=== PATIENT | female | born 1960 | race American Indian/Alaskan Native ===

== ENCOUNTER 2018-09-05 10:53 | Observation (INO) | payer OTHER ==
[2018-09-05] MEDS: Albuterol-Ipratrop 3 mg / 0.5 (3 ml) UD IH SCH ×2 (12:29→13:33)
--- NOTE | 2018-09-05 12:36 | RAD ---
Date of service: 09/05/2018 HISTORY: sob COMPARISON: No prior. FINDINGS: LUNGS: No active pulmonary disease. PLEURA: No significant pleural effusion identified, no pneumothorax apparent. CARDIOVASCULAR: No aortic atherosclerotic calcification present. Normal cardiac size. No pulmonary vascular congestion. OSSEOUS STRUCTURES: No significant abnormalities. VISUALIZED UPPER ABDOMEN: Normal. OTHER FINDINGS: None. IMPRESSION: No active disease.
[2018-09-05 12:43] LABS: BASO # 0.02 K/mm3 (0.0-2.0); BASO % 0.4 % (0.0-3.0); EOS % 0.7 % (1.5-5.0); HEMOGLOBIN 12.8 g/dL (12.0-16.0); LYMPH # 1.8 (1.2-3.4); LYMPH % 39.6 % (22.0-35.0); MEAN CELL VOLUME 95.6 fl (80.0-105.0); MEAN CORPUSCULAR HEMOGLOBIN 31.5 pg (25.0-35.0); MEAN PLATELET VOLUME 10.5 fl (7.0-11.0); MONO # 0.4 (0.1-0.6); MONO % 9.3 % (1.0-6.0); RBC 4.06 10^6/uL (3.5-6.1); RED CELL DISTRIBUTION WIDTH 14.3 % (11.5-14.5); WHITE BLOOD COUNT 4.5 10^3/uL (4.5-11.0)
[2018-09-05 12:46] LABS: URINE BILIRUBIN NEGATIVE (NEGATIVE); URINE BLOOD MODERATE (NEGATIVE); URINE GLUCOSE (UA) NEGATIVE (NEGATIVE); URINE LEUKOCYTE ESTERASE NEGATIVE Leu/uL (NEGATIVE); URINE PROTEIN TRACE mg/dL (<30 mg/dL); URINE UROBILINOGEN 0.2 E.U./dL (<1 E.U./dL)
[2018-09-05 12:51] LABS: INR 1.06; PARTIAL THROMBOPLASTIN TIME 37.8 Seconds (26.9-38.3)
[2018-09-05 12:52] LABS: URINE APPEARANCE CLEAR (CLEAR); URINE COLOR YELLOW (YELLOW)
[2018-09-05 13:00] LABS: URINE RBC 20 - 25 /hpf (0-2); URINE WBC 0 - 2 /hpf (0-6)
[2018-09-05 13:01] LABS: URINE BACTERIA MOD /hpf
[2018-09-05 13:03] LABS: INFLUENZA A B NEGATIVE FOR FLU A/B (NEGATIVE)
--- NOTE | 2018-09-05 13:04 | ED PDOC ---
Arrival/HPI - General Chief Complaint: Abdominal Pain Time Seen by Provider: 09/05/18 11:02 Historian: Patient (Poor historian ) - History of Present Illness Narrative History of Present Illness (Text): 09/05/18 11:02 Libertad Floyd is a 58 year old female, with a past medical history of HIV, HTN, and asthma, presents to the emergency department with complaints of worsening shortness of breath, cough, and abdominal pain. Patient informs she is taking bactram prophylaxis. Patient states she does not know her CD4 count. Patient was previously seen at another institution. Patient states that she had a CT and Ultrasound yesterday. Patient denies fever, chills, nausea, vomiting, diarrhea, back pain, neck pain, headache, dizziness, or any other complaint. Time/Duration: 24 hours Symptom Onset: Gradual Symptom Course: Worsening Activities at Onset: Light Context: Home Past Medical History - Provider Review Nursing Documentation Reviewed: Yes - Infectious Disease Hx of Infectious Diseases: None - Reproductive Menopause: Yes - Cardiac Hx Cardiac Disorders: Yes Hx Hypertension: Yes - Pulmonary Hx Respiratory Disorders: No - Neurological Hx Neurological Disorder: No - Integumentary Hx Dermatological Disorder: No - Psychiatric Hx Substance Use: No - Anesthesia Hx Anesthesia Reactions: No Family/Social History - Physician Review Nursing Documentation Reviewed: Yes Family/Social History: No Known Family HX Smoking Status: Current Some Days Smoker Hx Alcohol Use: Yes Frequency of alcohol use: Socially Hx Substance Use: No Allergies/Home Meds Allergies/Adverse Reactions: Allergies fruits Allergy (Uncoded 09/05/18 11:05) RASH Home Medications: Home Meds Medication Instructions Recorded Confirmed Albuterol HFA [Ventolin HFA 90 0.09 mg IH QID 09/05/18 09/05/18 mcg/actuation (8 g)] Elviteg/Jacqueline/Emtric/Tenofo Dis 1 tab PO DAILY 09/05/18 09/05/18 [Stribild] Sulfamethoxazole/Trimethoprim 1 tab PO 09/05/18 [Bactrim DS 800 mg-160 mg] amLODIPine [Norvasc] 10 mg PO DAILY 09/05/18 09/05/18 Review of Systems - Physician Review All systems were reviewed & negative as marked: Yes - Review of Systems Constitutional: absent: Fevers, Night Sweats Respiratory: SOB, Cough Cardiovascular: absent: Chest Pain Gastrointestinal: Abdominal Pain. absent: Diarrhea, Nausea, Vomiting Musculoskeletal: absent: Back Pain, Neck Pain Neurological: absent: Headache, Dizziness Physical Exam Vital Signs Reviewed: Yes Vital Signs Temp Pulse Resp BP Pulse Ox 09/05/18 10:59 97.6 F 70 18 163/108 H 98 Temperature: Afebrile Blood Pressure: Hypertensive Pulse: Regular Respiratory Rate: Normal Appearance: Positive for: Well-Appearing, Non-Toxic, Comfortable Pain Distress: None Mental Status: Positive for: Alert and Oriented X 3 - Systems Exam Head: Present: Atraumatic, Normocephalic Pupils: Present: PERRL Extroacular Muscles: Present: EOMI Conjunctiva: Present: Normal Mouth: Present: Moist Mucous Membranes Neck: Present: Normal Range of Motion Respiratory/Chest: Present: Wheezes (scattered), Decreased Breath Sounds (bilaterally). No: Clear to Auscultation, Good Air Exchange, Respiratory Distress, Accessory Muscle Use Cardiovascular: Present: Regular Rate and Rhythm, Normal S1, S2. No: Murmurs Abdomen: Present: Tenderness. No: Distention, Peritoneal Signs Back: Present: Normal Inspection Upper Extremity: Present: Normal Inspection. No: Cyanosis, Edema Lower Extremity: Present: Normal Inspection. No: Edema Neurological: Present: GCS=15, CN II-XII Intact, Speech Normal Skin: Present: Warm, Dry, Normal Color. No: Rashes Psychiatric: Present: Alert, Oriented x 3, Normal Insight, Normal Concentration Medical Decision Making ED Course and Treatment: 09/05/18 11:02 Impression: Patient is a 58 year old female who presents to the emergency department with worsening shortness of breath, cough, and abdominal pain. Plan: -- EKG -- Labs -- Chest X-Ray -- Influenza A/B -- Rapid Strep -- Urinalysis -- Duoneb -- Solu-Medrol -- Reassess and Disposition Progress: 09/05/18 16:[address] [place] [facility] [place] labs neg. pt failure of outpt will admit. accepted hosptialist. - Lab Interpretations Lab Results: PT 12.0 SECONDS (9.4-12.5) 09/05/18 12:15 INR 1.06 09/05/18 12:15 APTT 37.8 Seconds (26.9-38.3) 09/05/18 12:15 Urine Color Yellow (YELLOW) 09/05/18 12:15 Urine Appearance Clear (CLEAR) 09/05/18 12:15 Urine pH 6.0 (4.7-8.0) 09/05/18 12:15 Ur Specific [place] 1.020 (1.005-1.035) 09/05/18 12:15 Urine Protein Trace mg/dL (<30 mg/dL) H 09/05/18 12:15 Urine Glucose (UA) Negative mg/dL (NEGATIVE) 09/05/18 12:15 Urine Ketones Negative mg/dL (NEGATIVE) 09/05/18 12:15 Urine Blood Moderate (NEGATIVE) H 09/05/18 12:15 Urine Nitrate Negative (NEGATIVE) 09/05/18 12:15 Urine Bilirubin Negative (NEGATIVE) 09/05/18 12:15 Urine Urobilinogen 0.2 E.U./dL (<1 E.U./dL) 09/05/18 12:15 Ur Leukocyte Esterase Negative Chandana/uL (NEGATIVE) 09/05/18 12:15 - RAD Interpretation Radiology Orders: 09/05/18 11:58 CHEST PORTABLE [RAD] Stat - Medication Orders Current Medication Orders: Discontinued Medications Albuterol/Ipratropium (Duoneb 3 Mg/0.5 Mg (3 Ml) Ud) 3 ml IH Q15M JESSICA Stop: 09/05/18 12:31 Last Admin: 09/05/18 12:29 Dose: 3 ml Methylprednisolone (Solu-Medrol) 125 mg IVP STAT STA Stop: 09/05/18 12:00 Last Admin: 09/05/18 12:29 Dose: 125 mg IVP Administration Document 09/05/18 12:29 EQ (Rec: 09/05/18 12:29 EQ [id number]) Charges for Administration # of IVP Administrations 1 - Scribe Statement The provider has reviewed the documentation as recorded by the Scribe Arnie Yoder All medical record entries made by the Scribe were at my direction and personally dictated by me. I have reviewed the chart and agree that the record accurately reflects my personal performance of the history, physical exam, medical decision making, and the department course for this patient. I have also personally directed, reviewed, and agree with the discharge instructions and disposition. Disposition/Present on Arrival - Present on Arrival Any Indicators Present on Arrival: No History of DVT/PE: No History of Uncontrolled Diabetes: No Urinary Catheter: No History of Decub. Ulcer: No History Surgical Site Infection Following: None - Disposition Have Diagnosis and Disposition been Completed?: Yes Diagnosis: Asthma Disposition Time: 15:00 Condition: FAIR
[2018-09-05 13:10] LABS: ALB/GLOB RATIO 0.6 (1.1-1.8); ALBUMIN 3.8 g/dL (3.0-4.8)
[2018-09-05 13:22] LABS: TROPONIN I 0.01 ng/mL
--- NOTE | 2018-09-05 14:55 | CP.PCM.HP ---
<Ross Guo - Last Filed: 09/05/18 15:24> History of Present Illness - History of Present Illness History of Present Illness: PGY1 Medicine History and Physical Exam Note for Dr. Molina Patient is a 58-year-old F with PMH significant for HIV + (on elvitegravir/cobicistat/emtricitabine/tenofov - genoya oral tab), recent "walking" pneumonia, and Asthma who [place] [facility] [place] pain (R) for the past several days. Patient also admits to persistent cold-like symptoms which she describes as sore throat, cough, chills, and runny nose. Of note, Patient states she was recently seen at [facility] in June 2018 for cold- like symptoms. Also during her admission, the patient was found to have SAUL (Cr=5), per Patient. Patient states she got a little better but then returned to [facility] about 3 days ago because her cold symptoms persisted and this time she began experiencing right-sided rib pain, which she states is because of persistent cough. Patient was discharged with medrol pack, which the Patient states she did not complete. Patient otherwise denies chest pain, shortness of breath, headache, abdominal pain, dysuria, fever, nausea, vomiting and/or diarrhea. Of note, the Patient denies taking her Genoya oral tab medication for the last 3 days. PMH: Asthma, HIV + Surgery: Umbilical hernia repair - as a child Allergies: Fruits Meds: - Genoya oral tab 1 tab daily - Albuterol 2 puffs 4 times daily as needed for wheezing - SMZ-TMP 800-160mg PO [id number] - Amlodipine 10mg PO daily (Patient reports she did not take today) Social Hx: smokes 3-5 cigarettes per day, drinks coors light beer on weekends, denies recreational drugs PMD: [address] [facility]: [facility] in Present on Admission - Present on Admission Any Indicators Present on Admission: No History of DVT/PE: No History of Uncontrolled Diabetes: No Urinary Catheter: No Decubitus Ulcer Present: No Review of Systems - Review of Systems All systems: reviewed and no additional remarkable complaints except Review of Systems: as per HPI - Constitutional Constitutional: As Per HPI Past Patient History - Infectious Disease Hx of Infectious Diseases: None - Past Social History Smoking Status: Current Some Days Smoker - CARDIAC Hx Cardiac Disorders: Yes Hx Hypertension: Yes - PULMONARY Hx Respiratory Disorders: No - NEUROLOGICAL Hx Neurological Disorder: No - HEMATOLOGICAL/ONCOLOGICAL Hx Human Immunodeficiency Virus (HIV): Yes (2000) - INTEGUMENTARY Hx Dermatological Problems: No - PSYCHIATRIC Hx Substance Use: No - ANESTHESIA Hx Anesthesia Reactions: No Meds Allergies/Adverse Reactions: Allergies Allergy/AdvReac Type Severity Reaction Status Date / Time fruits Allergy RASH Uncoded 09/05/18 11:05 Physical Exam - Constitutional Appears: Agitated - Head Exam Head Exam: ATRAUMATIC, NORMAL INSPECTION, NORMOCEPHALIC - Eye Exam Eye Exam: EOMI, Normal appearance, PERRL Pupil Exam: NORMAL ACCOMODATION, PERRL - ENT Exam ENT Exam: Normal Exam Additional comments: on throat exam: + erythema no edema no exudate - Neck Exam Neck exam: Positive for: Normal Inspection. Negative for: Lymphadenopathy, Meningismus, Tenderness - Respiratory Exam Respiratory Exam: Clear to Auscultation Bilateral, NORMAL BREATHING PATTERN. absent: Chest Wall Tenderness, Decreased Breath Sounds, Rales, Rhonchi, Wheezes, Respiratory Distress - Cardiovascular Exam Cardiovascular Exam: REGULAR RHYTHM, +S1, +S2. absent: Bradycardia, Tachycardia Additional comments: ribs 5-7 are tender to palpation on the right no rash noted no change in skin texture/color noted - GI/Abdominal Exam GI & Abdominal Exam: Normal Bowel Sounds, Soft. absent: Tenderness - Extremities Exam Extremities exam: Positive for: normal inspection, pedal pulses present. Negative for: tenderness - Back Exam Back exam: FULL ROM, NORMAL INSPECTION. absent: rash noted - Neurological Exam Neurological exam: Alert, CN II-XII Intact, Oriented x3 - Psychiatric Exam Psychiatric exam: Agitated, Normal Affect, Normal Mood - Skin Skin Exam: Dry, Intact, Normal Color, Warm Results - Vital Signs Recent Vital Signs: Last Vital Signs Temp 97.6 F 09/05/18 10:59 Pulse 66 09/05/18 14:45 Resp 18 09/05/18 14:45 BP 199/99 H 09/05/18 14:45 Pulse Ox 95 09/05/18 14:45 - Labs Result Diagrams: 09/05/18 12:15 09/05/18 12:50 Labs: Laboratory Results - last 24 hr 09/05/18 09/05/18 09/05/18 12:15 12:15 12:15 WBC 4.5 RBC 4.06 Hgb 12.8 Hct 38.8 MCV 95.6 MCH 31.5 MCHC 33.0 RDW 14.3 Plt Count 158 MPV 10.5 Neut % (Auto) 50.0 Lymph % (Auto) 39.6 H [place] % (Auto) 9.3 H Eos % (Auto) 0.7 L Baso % (Auto) 0.4 Lymph # (Auto) 1.8 [place] # (Auto) 0.4 Eos # (Auto) 0.0 Baso # (Auto) 0.02 Absolute Neuts (auto) 2.25 PT 12.0 INR 1.06 APTT 37.8 Sodium Potassium Chloride Carbon Dioxide Anion Gap BUN Creatinine Est GFR ( Amer) Est GFR (Non-Af Amer) Random Glucose Calcium Magnesium Total Bilirubin AST ALT Alkaline Phosphatase Lactate Dehydrogenase Total Creatine Kinase Troponin I NT-Pro-B Natriuret Pep Total Protein Albumin Globulin Albumin/Globulin Ratio Lipase Urine Color Yellow Urine Appearance Clear Urine pH 6.0 Ur Specific [place] 1.020 Urine Protein Trace H Urine Glucose (UA) Negative Urine Ketones Negative Urine Blood Moderate H Urine Nitrate Negative Urine Bilirubin Negative Urine Urobilinogen 0.2 Ur Leukocyte Esterase Negative Urine RBC 20 - 25 H Urine WBC 0 - 2 Ur Epithelial Cells 3 - 4 Urine Bacteria Mod Influenza Typ A,B (EIA) Grp A Beta Strep Ag 09/05/18 09/05/18 12:15 12:50 WBC RBC Hgb Hct MCV MCH MCHC RDW Plt Count MPV Neut % (Auto) Lymph % (Auto) [place] % (Auto) Eos % (Auto) Baso % (Auto) Lymph # (Auto) [place] # (Auto) Eos # (Auto) Baso # (Auto) Absolute Neuts (auto) PT INR APTT Sodium 138 Potassium 4.1 Chloride 107 Carbon Dioxide 27 Anion Gap 8 L BUN 16 Creatinine 1.2 Est GFR ( Amer) 56 Est GFR (Non-Af Amer) 46 Random Glucose 101 Calcium 9.0 Magnesium 1.9 Total Bilirubin 0.4 AST 49 H ALT 14 Alkaline Phosphatase 79 Lactate Dehydrogenase 588 Total Creatine Kinase 112 Troponin I 0.01 NT-Pro-B Natriuret Pep 460 H Total Protein 9.9 H Albumin 3.8 Globulin 6.1 Albumin/Globulin Ratio 0.6 L Lipase 218 Urine Color Urine Appearance Urine pH Ur Specific [place] Urine Protein Urine Glucose (UA) Urine Ketones Urine Blood Urine Nitrate Urine Bilirubin Urine Urobilinogen Ur Leukocyte Esterase Urine RBC Urine WBC Ur Epithelial Cells Urine Bacteria Influenza Typ A,B (EIA) Negative for flu a/b Grp A Beta Strep Ag Negative Assessment & Plan - Assessment and Plan (Free Text) Assessment: Patient is a 58-year-old F with PMH significant for HIV + (on elvitegravir/ cobicistat/emtricitabine/tenofov - genoya oral tab), recent "walking" pneumonia, and Asthma who [place] [facility] [place] for rib pain (R) for the past several days. Patient subsequently admitted for rule-out rib fracture Rib Pain (Right-sided ribs 5-7) likely secondary to cough likely secondary to viral bronchitis - Duonebs Q2H PRN for wheezing - Acetaminophen 650mg PO Q6H PRN for moderate pain - Toradol 15mg IVP Q6 PRN for severe pain - Solumedrol 125mg IVP given once - Zofran 4mg PO Q8H PRN for nausea - X-ray Rib series - F/U throat cultures - F/U Blood cultures - AM labs: CMP, CBC, Phos, Mag - Monitor on tele ACS rule-out - + Risk Factors: Female, > 55 years old, smokes, HTN, - Troponins Q6H x3 - EKG: NSR with LVH (read by me) - Repeat EKG - Monitor tele History of HTN - Restart home meds: Norvasc 10mg PO daily - Monitor BP History of Asthma - Duonebs Q2H PRN - Monitor History of HIV + - Unknown CD4 count - Prescribed genoya 1 tab PO (denies taking for 3 days) - Prescribed SMZ/TMP - Continue HIV medications - Encourage follow-up with PMD PPx: - GI: pepcid 40mg PO HS - DVT: SCD Patient seen and case discussed in detail with Dr. Tracy Guo PGY1 <Rafi Molina - Last Filed: 09/05/18 16:52> Results - Vital Signs Recent Vital Signs: Last Vital Signs Temp 97.7 F 09/05/18 14:59 Pulse 76 09/05/18 15:30 Resp 18 09/05/18 15:30 BP 170/89 H 09/05/18 15:33 Pulse Ox 93 L 09/05/18 15:30 - Labs Result Diagrams: 09/05/18 12:15 09/05/18 12:50 Labs: Laboratory Results - last 24 hr 09/05/18 09/05/18 09/05/18 12:15 12:15 12:15 WBC 4.5 RBC 4.06 Hgb 12.8 Hct 38.8 MCV 95.6 MCH 31.5 MCHC 33.0 RDW 14.3 Plt Count 158 MPV 10.5 Neut % (Auto) 50.0 Lymph % (Auto) 39.6 H [place] % (Auto) 9.3 H Eos % (Auto) 0.7 L Baso % (Auto) 0.4 Lymph # (Auto) 1.8 [place] # (Auto) 0.4 Eos # (Auto) 0.0 Baso # (Auto) 0.02 Absolute Neuts (auto) 2.25 PT 12.0 INR 1.06 APTT 37.8 Sodium Potassium Chloride Carbon Dioxide Anion Gap BUN Creatinine Est GFR ( Amer) Est GFR (Non-Af Amer) Random Glucose Calcium Magnesium Total Bilirubin AST ALT Alkaline Phosphatase Lactate Dehydrogenase Total Creatine Kinase Troponin I NT-Pro-B Natriuret Pep Total Protein Albumin Globulin Albumin/Globulin Ratio Lipase Urine Color Yellow Urine Appearance Clear Urine pH 6.0 Ur Specific [place] 1.020 Urine Protein Trace H Urine Glucose (UA) Negative Urine Ketones Negative Urine Blood Moderate H Urine Nitrate Negative Urine Bilirubin Negative Urine Urobilinogen 0.2 Ur Leukocyte Esterase Negative Urine RBC 20 - 25 H Urine WBC 0 - 2 Ur Epithelial Cells 3 - 4 Urine Bacteria Mod Urine Opiates Screen Urine Methadone Screen Ur Barbiturates Screen Ur Phencyclidine Scrn Ur Amphetamines Screen U Benzodiazepines Scrn U Oth Cocaine Metabols U Cannabinoids Screen Influenza Typ A,B (EIA) Grp A Beta Strep Ag 09/05/18 09/05/18 09/05/18 12:15 12:50 16:06 WBC RBC Hgb Hct MCV MCH MCHC RDW Plt Count MPV Neut % (Auto) Lymph % (Auto) [place] % (Auto) Eos % (Auto) Baso % (Auto) Lymph # (Auto) [place] # (Auto) Eos # (Auto) Baso # (Auto) Absolute Neuts (auto) PT INR APTT Sodium 138 Potassium 4.1 Chloride 107 Carbon Dioxide 27 Anion Gap 8 L BUN 16 Creatinine 1.2 Est GFR ( Amer) 56 Est GFR (Non-Af Amer) 46 Random Glucose 101 Calcium 9.0 Magnesium 1.9 Total Bilirubin 0.4 AST 49 H ALT 14 Alkaline Phosphatase 79 Lactate Dehydrogenase 588 Total Creatine Kinase 112 Troponin I 0.01 NT-Pro-B Natriuret Pep 460 H Total Protein 9.9 H Albumin 3.8 Globulin 6.1 Albumin/Globulin Ratio 0.6 L Lipase 218 Urine Color Urine Appearance Urine pH Ur Specific [place] Urine Protein Urine Glucose (UA) Urine Ketones Urine Blood Urine Nitrate Urine Bilirubin Urine Urobilinogen Ur Leukocyte Esterase Urine RBC Urine WBC Ur Epithelial Cells Urine Bacteria Urine Opiates Screen Negative Urine Methadone Screen Negative Ur Barbiturates Screen Negative Ur Phencyclidine Scrn Negative Ur Amphetamines Screen Negative U Benzodiazepines Scrn Negative U Oth Cocaine Metabols Positive H U Cannabinoids Screen Negative Influenza Typ A,B (EIA) Negative for flu a/b Grp A Beta Strep Ag Negative Attending/Attestation - Attestation I have personally seen and examined this patient.: Yes I have fully participated in the care of the patient.: Yes I have reviewed all pertinent clinical information: Yes Notes (Text): 09/05/18 16:47 58 year old female with past medical history of HIV, hypertension and asthma who presents with complaint of right sided chest wall / rib pain. She states she was in [facility] yesterday and had a CT abd/pelvis and US abdomen and was told it was negative. (request for imaging studies). Will obtain serial cardiac enzymes to rule out ACS. UDS is ordered; +cocaine. Counselled on risks of continued substance abuse. Chest xray was negative. Will obtain rib series to rule out fracture. Continue with duonebs prn for mild intermittent asthma. Continue with home medications for HIV and hypertension. Rafi Molina MD Hospitalist.
[2018-09-05] MEDS ORDERED: Albuterol-Ipratrop 3 mg / 0.5 (3 ml) UD IH PRN (15:04)
[2018-09-05] MEDS ORDERED: guaiFENesin DM 100 mg-10 mg/5 ml UD PO PRN (15:04)
[2018-09-05 16:39] LABS: BARBITURATES, UR NEGATIVE (NEGATIVE); BENZODIAZEPINES, UR NEGATIVE (NEGATIVE); OPIATES, UR NEGATIVE (NEGATIVE); PHENCYCLIDINE, UR NEGATIVE (NEGATIVE)
--- NOTE | 2018-09-05 16:53 | RAD ---
Date of service: 09/05/2018 PROCEDURE: Right ribs HISTORY: Pain. No history of recent/ related trauma provided COMPARISON: September 05, 2018 single-view chest TECHNIQUE: Frontal radiograph of the chest and multiple oblique radiographs of the right ribs were obtained. FINDINGS: RIGHT RIBS: No fracture or focal lesion visualized. LUNGS: Clear. PLEURA: No pneumothorax or pleural fluid. CARDIOVASCULAR: Normal cardiac size. No pulmonary vascular congestion. No aortic atherosclerotic calcification present OTHER FINDINGS: None. IMPRESSION: Unremarkable radiographs of the chest and right ribs. No right rib fracture.
--- NOTE | 2018-09-05 17:08 | CARD ---
APPROVED REPORT Date of service: 09/05/2018 EKG Measurement Heart [id number] <Conclusion> Normal sinus rhythm Nonspecific T wave abnormality Abnormal ECG
[2018-09-05] MEDS: Tmp-Smz 800 mg-160 mg DS Tab PO SCH (20:17)
[2018-09-05 23:05] VITALS: BMI 25.7
[2018-09-05] MEDS ORDERED: Pneumococcal 23-Valent Vaccine IM ONE (23:06)
[2018-09-05] MEDS ORDERED: Influenza Vaccine 60 mcg/0.5 mL SYR (4YR UP) IM ONE (23:06)
[2018-09-06 03:50] VITALS: PULSE 81
[2018-09-06 03:52] VITALS: RESP 20; TEMP 97.3; O2SAT 98
[2018-09-06 07:08] LABS: BASO # 0.01 K/mm3 (0.0-2.0); BASO % 0.2 % (0.0-3.0); HEMOGLOBIN 11.4 g/dL (12.0-16.0); LYMPH % 18.7 % (22.0-35.0); MEAN CELL VOLUME 93.5 fl (80.0-105.0); MEAN CORPUSCULAR HEMOGLOBIN 30.9 pg (25.0-35.0); MEAN PLATELET VOLUME 10.1 fl (7.0-11.0); MONO # 0.4 (0.1-0.6); MONO % 8.4 % (1.0-6.0); RBC 3.69 10^6/uL (3.5-6.1); RED CELL DISTRIBUTION WIDTH 13.9 % (11.5-14.5); WHITE BLOOD COUNT 5.1 10^3/uL (4.5-11.0)
[2018-09-06 07:28] LABS: ALB/GLOB RATIO 0.6 (1.1-1.8); ALBUMIN 3.6 g/dL (3.0-4.8); CALCIUM 8.8 mg/dL (8.4-10.5)
[2018-09-06] MEDS: Tmp-Smz 800 mg-160 mg DS Tab PO SCH (09:45)
[2018-09-06 09:46] VITALS: BP 161/89
--- NOTE | 2018-09-06 12:33 | CP.PCM.DIS ---
<Ross Guo - Last Filed: 09/06/18 13:19> Provider - Provider Date of Admission: 09/05/18 13:39 Attending physician: Rafi Molina MD Primary care physician: Caryl Santillan Consults: 09/05/18 22:45 Social Work Referral Routine Comment: d/c plan Physician Instructions: Reason For Exam: asess 09/05/18 23:06 Inpatient CONFIGURATOR Core Measures Referral Routine Comment: asthma/hiv Physician Instructions: Reason For Exam: eval Transition In Care/Readmission Reduction Routine Comment: asthma/hiv Physician Instructions: Reason For Exam: eval Time Spent in preparation of Discharge (in minutes): 45 Diagnosis - Discharge Diagnosis (1) Rib pain on right side Status: Acute Priority: Medium (2) Asthma Status: Acute Priority: Medium Hospital Course - Lab Results Lab Results: Micro Results 09/05/18 12:15 Throat Group A Strep Throat Culture - Final NO BETA STREP GROUP A ISOLATED. Most Recent Lab Values WBC 5.1 10^3/uL (4.5-11.0) 09/06/18 06:30 RBC 3.69 10^6/uL (3.5-6.1) 09/06/18 06:30 Hgb 11.4 g/dL (12.0-16.0) L 09/06/18 06:30 Hct 34.5 % (36.0-48.0) L 09/06/18 06:30 MCV 93.5 fl (80.0-105.0) 09/06/18 06:30 MCH 30.9 pg (25.0-35.0) 09/06/18 06:30 MCHC 33.0 g/dl (31.0-37.0) 09/06/18 06:30 RDW 13.9 % (11.5-14.5) 09/06/18 06:30 Plt Count 160 10^3/uL (120.0-450.0) 09/06/18 06:30 MPV 10.1 fl (7.0-11.0) 09/06/18 06:30 Neut % (Auto) 72.7 % (50.0-68.0) H 09/06/18 06:30 Lymph % (Auto) 18.7 % (22.0-35.0) L 09/06/18 06:30 [place] % (Auto) 8.4 % (1.0-6.0) H 09/06/18 06:30 Eos % (Auto) 0.0 % (1.5-5.0) L 09/06/18 06:30 Baso % (Auto) 0.2 % (0.0-3.0) 09/06/18 06:30 Lymph # (Auto) 1.0 (1.2-3.4) L 09/06/18 06:30 [place] # (Auto) 0.4 (0.1-0.6) 09/06/18 06:30 Eos # (Auto) 0.0 (0.0-0.7) 09/06/18 06:30 Baso # (Auto) 0.01 K/mm3 (0.0-2.0) 09/06/18 06:30 Absolute Neuts (auto) 3.74 (1.4-6.5) 09/06/18 06:30 PT 12.0 SECONDS (9.4-12.5) 09/05/18 12:15 INR 1.06 09/05/18 12:15 APTT 37.8 Seconds (26.9-38.3) 09/05/18 12:15 Sodium 138 mmol/L (132-148) 09/06/18 06:30 Potassium 4.3 mmol/L (3.6-5.0) 09/06/18 06:30 Chloride 108 mmol/L (98-107) H 09/06/18 06:30 Carbon Dioxide 25 mmol/L (21-33) 09/06/18 06:30 Anion Gap 10 (10-20) 09/06/18 06:30 BUN 21 mg/dL (7-21) 09/06/18 06:30 Creatinine 1.4 mg/dl (0.7-1.2) H 09/06/18 06:30 Est GFR ( Amer) 47 09/06/18 06:30 Est GFR (Non-Af Amer) 39 09/06/18 06:30 Random Glucose 140 mg/dL (70-110) H 09/06/18 06:30 Calcium 8.8 mg/dL (8.4-10.5) 09/06/18 06:30 Phosphorus 3.8 mg/dL (2.5-4.5) 09/06/18 06:30 Magnesium 2.0 mg/dL (1.7-2.2) 09/06/18 06:30 Total Bilirubin 0.3 mg/dL (0.2-1.3) 09/06/18 06:30 AST 38 U/L (14-36) H D 09/06/18 06:30 ALT 14 U/L (7-56) 09/06/18 06:30 Alkaline Phosphatase 93 U/L (38-126) 09/06/18 06:30 Lactate Dehydrogenase 588 U/L (333-699) 09/05/18 12:50 Total Creatine Kinase 112 U/L (35-230) 09/05/18 12:50 Troponin I < 0.01 ng/mL 09/06/18 01:20 NT-Pro-B Natriuret Pep 460 pg/mL (0-450) H 09/05/18 12:50 Total Protein 9.4 g/dL (5.8-8.3) H 09/06/18 06:30 Albumin 3.6 g/dL (3.0-4.8) 09/06/18 06:30 Globulin 5.8 gm/dL 09/06/18 06:30 Albumin/Globulin Ratio 0.6 (1.1-1.8) L 09/06/18 06:30 Lipase 218 U/L (23-300) 09/05/18 12:50 Urine Color Yellow (YELLOW) 09/05/18 12:15 Urine Appearance Clear (CLEAR) 09/05/18 12:15 Urine pH 6.0 (4.7-8.0) 09/05/18 12:15 Ur Specific [place] 1.020 (1.005-1.035) 09/05/18 12:15 Urine Protein Trace mg/dL (<30 mg/dL) H 09/05/18 12:15 Urine Glucose (UA) Negative mg/dL (NEGATIVE) 09/05/18 12:15 Urine Ketones Negative mg/dL (NEGATIVE) 09/05/18 12:15 Urine Blood Moderate (NEGATIVE) H 09/05/18 12:15 Urine Nitrate Negative (NEGATIVE) 09/05/18 12:15 Urine Bilirubin Negative (NEGATIVE) 09/05/18 12:15 Urine Urobilinogen 0.2 E.U./dL (<1 E.U./dL) 09/05/18 12:15 Ur Leukocyte Esterase Negative Chandana/uL (NEGATIVE) 09/05/18 12:15 Urine RBC 20 - 25 /hpf (0-2) H 09/05/18 12:15 Urine WBC 0 - 2 /hpf (0-6) 09/05/18 12:15 Ur Epithelial Cells 3 - 4 /hpf (0-5) 09/05/18 12:15 Urine Bacteria Mod /hpf (NONE) 09/05/18 12:15 Urine Opiates Screen Negative (NEGATIVE) 09/05/18 16:06 Urine Methadone Screen Negative (NEGATIVE) 09/05/18 16:06 Ur Barbiturates Screen Negative (NEGATIVE) 09/05/18 16:06 Ur Phencyclidine Scrn Negative (NEGATIVE) 09/05/18 16:06 Ur Amphetamines Screen Negative (NEGATIVE) 09/05/18 16:06 U Benzodiazepines Scrn Negative (NEGATIVE) 09/05/18 16:06 U Oth Cocaine Metabols Positive (NEGATIVE) H 09/05/18 16:06 U Cannabinoids Screen Negative (NEGATIVE) 09/05/18 16:06 Influenza Typ A,B (EIA) Negative for flu a/b (NEGATIVE) 09/05/18 12:15 Grp A Beta Strep Ag Negative (NEGATIVE) 09/05/18 12:15 - Hospital Course Hospital Course: PGY1 Medicine Discharge Summary and Hospital Course for Dr. Molina On Admission: Patient is a 58-year-old F with PMH significant for HIV + (on elv itegravir/cobicistat/emtricitabine/tenofov - genoya oral tab), recent cold, and Asthma who presented to [facility] [place] [place] Emergency Department for rib pain (R) for the past several days. Patient also admitted to persistent cold-like symptoms which she describes as sore throat, cough, chills, and runny nose. Of note, Patient stated she was recently seen [place] [facility] [place] for cold-like symptoms. Also during her admission, the patient was found to have SAUL (Cr=5), per Patient. Patient stated she got a little better but then returned to [facility] about 3 days ago because her cold symptoms persisted and this time she began experiencing right-sided rib pain, which she stated was because of persistent cough. Patient was discharged with medrol pack, which the Patient stated she did not complete. Of note, the Patient denies taking her Genoya oral tab medication for the last 3 days. Please see Patient's complete chart for details. Patient was subsequently admitted for right-sided rib pain; Rule-Out ACS. Rib X- ray series was obtained and showed no acute fracture (see official report). Blood cultures were negative x24 hours, sputum culture was negative. Patient was afebrile. No leukocytosis. Troponins were obtained and were negative x3. Patient was treated with appropriate pain medications. Patient has history of Asthma and was treated with duonebs PRN. Patient's home-meds were also restarted. Patient also has history of HTN, and was continued on home med (norvasc). Patient was found to be UDS+ (cocaine) on admission as well. Patient was educated on complete cessation of drugs of abuse. On day of discharge, Patient was hemodynamically stable and medically optimized for discharge to home. Patient stated her pain improved. Patient was provided with detailed instructions both in writing and verbally to the level of the Patient's comprehension. Patient both understands and agrees to all discharge instructions. Patient was discharged on her home medications. Discharge Medications: Home medications: Genoya 1 tab PO daily SMZ/TMP 1 tab PO daily Albuterol inhaler Norvasc 10mg PO daily #14 Discharge Instructions: Please follow up with your primary care doctor within one week of being discharged for post hospitalization follow up. Please discuss with them all medical issues addressed during your admission. Please follow up with your HIV specialist within one week of being discharged. Please stop using all illicit drugs, including cocaine, as these are harmful and have potentially fatal side effects. Please take all medications as prescribed by your physician. Should your symptoms return, please seek emergency medical attention immediately. Patient seen and case discussed in detail with Dr. Tracy Guo PGY1 Discharge Exam - Head Exam Head Exam: ATRAUMATIC, NORMAL INSPECTION, NORMOCEPHALIC - Eye Exam Eye Exam: EOMI, Normal appearance, PERRL Pupil Exam: NORMAL ACCOMODATION - ENT Exam ENT Exam: Mucous Membranes Moist - Neck Exam Neck exam: Full Rom - Respiratory Exam Respiratory Exam: Clear to PA & Lateral, NORMAL BREATHING PATTERN, UNREMARKABLE. absent: Chest Wall Tenderness, Decreased Breath Sounds, Rales, Rhonchi, Wheezes, Respiratory Distress, Stridor - Cardiovascular Exam Cardiovascular Exam: RRR, +S1, +S2. absent: Diastolic murmur, Systolic Murmur - GI/Abdominal Exam GI & Abdominal Exam: Normal Bowel Sounds, Soft, Unremarkable. absent: Distended, Firm, Guarding - Extremities Exam Extremities exam: normal capillary refill, normal inspection, pedal pulses present - Back Exam Back exam: NORMAL INSPECTION. absent: CVA tenderness (L), CVA tenderness (R) - Neurological Exam Neurological exam: Alert, CN II-XII Intact, Normal Gait, Oriented x3, Reflexes Normal - Psychiatric Exam Psychiatric exam: Normal Affect, Normal Mood - Skin Skin Exam: Dry, Intact, Normal Color, Warm Discharge Plan - Discharge Medications Prescriptions: Albuterol HFA [Ventolin HFA 90 mcg/actuation (8 g)] 0.09 mg IH QID #1 inhaler amLODIPine [Norvasc] 10 mg PO DAILY 14 Days tab - Follow Up Plan Condition: FAIR Disposition: HOME/ ROUTINE Instructions: Asthma, Adult (DC), Shortness of Breath (Dyspnea), Asthma (DC), Asthma (GEN) Additional Instructions: Please follow up with your primary care doctor within one week of being discharged for post hospitalization follow up. Please discuss with them all medical issues addressed during your admission. Please follow up with your HIV specialist within one week of being discharged. Please stop using all illicit drugs, including cocaine, as these are harmful and have potentially fatal side effects. Please take all medications as prescribed by your physician. Should your symptoms return, please seek emergency medical attention immediately. Referrals: Caryl Santillan MD [Family Provider] - <Rafi Molina - Last Filed: 09/06/18 19:08> Provider - Provider Date of Admission: 09/05/18 13:39 Attending physician: Rafi Molina MD Consults: 09/05/18 22:45 Social Work Referral Routine Comment: d/c plan Physician Instructions: Reason For Exam: asess 09/05/18 23:06 Inpatient CONFIGURATOR Core Measures Referral Routine Comment: asthma/hiv Physician Instructions: Reason For Exam: eval Transition In Care/Readmission Reduction Routine Comment: asthma/hiv Physician Instructions: Reason For Exam: eval Hospital Course - Lab Results Lab Results: Micro Results 09/05/18 12:45 Blood Blood Culture - Preliminary NO GROWTH AFTER 24 HOURS 09/05/18 12:15 Blood Blood Culture - Preliminary NO GROWTH AFTER 24 HOURS 09/05/18 12:15 Throat Group A Strep Throat Culture - Final NO BETA STREP GROUP A ISOLATED. Most Recent Lab Values WBC 5.1 10^3/uL (4.5-11.0) 09/06/18 06:30 RBC 3.69 10^6/uL (3.5-6.1) 09/06/18 06:30 Hgb 11.4 g/dL (12.0-16.0) L 09/06/18 06:30 Hct 34.5 % (36.0-48.0) L 09/06/18 06:30 MCV 93.5 fl (80.0-105.0) 09/06/18 06:30 MCH 30.9 pg (25.0-35.0) 09/06/18 06:30 MCHC 33.0 g/dl (31.0-37.0) 09/06/18 06:30 RDW 13.9 % (11.5-14.5) 09/06/18 06:30 Plt Count 160 10^3/uL (120.0-450.0) 09/06/18 06:30 MPV 10.1 fl (7.0-11.0) 09/06/18 06:30 Neut % (Auto) 72.7 % (50.0-68.0) H 09/06/18 06:30 Lymph % (Auto) 18.7 % (22.0-35.0) L 09/06/18 06:30 [place] % (Auto) 8.4 % (1.0-6.0) H 09/06/18 06:30 Eos % (Auto) 0.0 % (1.5-5.0) L 09/06/18 06:30 Baso % (Auto) 0.2 % (0.0-3.0) 09/06/18 06:30 Lymph # (Auto) 1.0 (1.2-3.4) L 09/06/18 06:30 [place] # (Auto) 0.4 (0.1-0.6) 09/06/18 06:30 Eos # (Auto) 0.0 (0.0-0.7) 09/06/18 06:30 Baso # (Auto) 0.01 K/mm3 (0.0-2.0) 09/06/18 06:30 Absolute Neuts (auto) 3.74 (1.4-6.5) 09/06/18 06:30 PT 12.0 SECONDS (9.4-12.5) 09/05/18 12:15 INR 1.06 09/05/18 12:15 APTT 37.8 Seconds (26.9-38.3) 09/05/18 12:15 Sodium 138 mmol/L (132-148) 09/06/18 06:30 Potassium 4.3 mmol/L (3.6-5.0) 09/06/18 06:30 Chloride 108 mmol/L (98-107) H 09/06/18 06:30 Carbon Dioxide 25 mmol/L (21-33) 09/06/18 06:30 Anion Gap 10 (10-20) 09/06/18 06:30 BUN 21 mg/dL (7-21) 09/06/18 06:30 Creatinine 1.4 mg/dl (0.7-1.2) H 09/06/18 06:30 Est GFR ( Amer) 47 09/06/18 06:30 Est GFR (Non-Af Amer) 39 09/06/18 06:30 Random Glucose 140 mg/dL (70-110) H 09/06/18 06:30 Calcium 8.8 mg/dL (8.4-10.5) 09/06/18 06:30 Phosphorus 3.8 mg/dL (2.5-4.5) 09/06/18 06:30 Magnesium 2.0 mg/dL (1.7-2.2) 09/06/18 06:30 Total Bilirubin 0.3 mg/dL (0.2-1.3) 09/06/18 06:30 AST 38 U/L (14-36) H D 09/06/18 06:30 ALT 14 U/L (7-56) 09/06/18 06:30 Alkaline Phosphatase 93 U/L (38-126) 09/06/18 06:30 Lactate Dehydrogenase 588 U/L (333-699) 09/05/18 12:50 Total Creatine Kinase 112 U/L (35-230) 09/05/18 12:50 Troponin I < 0.01 ng/mL 09/06/18 01:20 NT-Pro-B Natriuret Pep 460 pg/mL (0-450) H 09/05/18 12:50 Total Protein 9.4 g/dL (5.8-8.3) H 09/06/18 06:30 Albumin 3.6 g/dL (3.0-4.8) 09/06/18 06:30 Globulin 5.8 gm/dL 09/06/18 06:30 Albumin/Globulin Ratio 0.6 (1.1-1.8) L 09/06/18 06:30 Lipase 218 U/L (23-300) 09/05/18 12:50 Urine Color Yellow (YELLOW) 09/05/18 12:15 Urine Appearance Clear (CLEAR) 09/05/18 12:15 Urine pH 6.0 (4.7-8.0) 09/05/18 12:15 Ur Specific [place] 1.020 (1.005-1.035) 09/05/18 12:15 Urine Protein Trace mg/dL (<30 mg/dL) H 09/05/18 12:15 Urine Glucose (UA) Negative mg/dL (NEGATIVE) 09/05/18 12:15 Urine Ketones Negative mg/dL (NEGATIVE) 09/05/18 12:15 Urine Blood Moderate (NEGATIVE) H 09/05/18 12:15 Urine Nitrate Negative (NEGATIVE) 09/05/18 12:15 Urine Bilirubin Negative (NEGATIVE) 09/05/18 12:15 Urine Urobilinogen 0.2 E.U./dL (<1 E.U./dL) 09/05/18 12:15 Ur Leukocyte Esterase Negative Chandana/uL (NEGATIVE) 09/05/18 12:15 Urine RBC 20 - 25 /hpf (0-2) H 09/05/18 12:15 Urine WBC 0 - 2 /hpf (0-6) 09/05/18 12:15 Ur Epithelial Cells 3 - 4 /hpf (0-5) 09/05/18 12:15 Urine Bacteria Mod /hpf (NONE) 09/05/18 12:15 Urine Opiates Screen Negative (NEGATIVE) 09/05/18 16:06 Urine Methadone Screen Negative (NEGATIVE) 09/05/18 16:06 Ur Barbiturates Screen Negative (NEGATIVE) 09/05/18 16:06 Ur Phencyclidine Scrn Negative (NEGATIVE) 09/05/18 16:06 Ur Amphetamines Screen Negative (NEGATIVE) 09/05/18 16:06 U Benzodiazepines Scrn Negative (NEGATIVE) 09/05/18 16:06 U Oth Cocaine Metabols Positive (NEGATIVE) H 09/05/18 16:06 U Cannabinoids Screen Negative (NEGATIVE) 09/05/18 16:06 Influenza Typ A,B (EIA) Negative for flu a/b (NEGATIVE) 09/05/18 12:15 Grp A Beta Strep Ag Negative (NEGATIVE) 09/05/18 12:15 Attending/Attestation - Attestation I have personally seen and examined this patient.: Yes I have fully participated in the care of the patient.: Yes I have reviewed all pertinent clinical information, including history, physical exam and plan: Yes Notes (Text): 09/06/18 19:04 58 year old female with past medical history of HIV, hypertension and asthma who presented with complaint of right sided chest wall / rib pain. She reported she was in [facility] two days prior and had a CT abd/pelvis and US abdomen and was told it was negative. Serial cardiac enzymes were negative and ACS was ruled out. Rib series and CXR were also negative. UDS was positive for cocaine. Counselled on risks of continued substance abuse. She was on duonebs prn for mild intermittent asthma. Patient is discharged home to follow up with pmd. Counselled on risks of continued substance abuse. Monitor CKD closely as outpatient. Rafi Molina MD Hospitalist.
== END 2018-09-06 12:35 | disposition home or self-care (01) ==
LOC: ED 10:53 → ERH 13:39 → 2RNO 23:21
PROVIDERS: ADMIT Hospitalist; ATTEND Internal Medicine
DX: J45.20 Mild intermittent asthma, uncomplicated (principal); R07.81 Pleurodynia; Z21 Asymptomatic human immunodeficiency virus [HIV] infection status; I12.9 Hypertensive chronic kidney disease with stage 1 through stage 4 chronic kidney disease, or unspecified chronic kidney disease; N18.9 Chronic kidney disease, unspecified; J40 Bronchitis, not specified as acute or chronic; J00 Acute nasopharyngitis [common cold]; F17.210 Nicotine dependence, cigarettes, uncomplicated; Z91.018 Allergy to other foods
CPT/HCPCS: 36415; 71045; 71100; 80053; 80324; 80345; 80346; 80349; 80353; 80358; 80361; 81001; 82550; 83615; 83690; 83735; 83880; 83992; 84100; 84484; 85025; 85610; 85730; 87040; 87070; 87430; 87804; 93005; 94640; 96374; 96375; 96376; 99283; G0378; J1885; J2930

== ENCOUNTER 2018-09-10 10:32 | Inpatient (IN) | payer OTHER ==
[2018-09-10 10:32] VITALS: BMI 25.7
[2018-09-10] MEDS ORDERED: Albuterol-Ipratrop 3 mg / 0.5 (3 ml) UD IH STA (11:33)
[2018-09-10] MEDS ORDERED: Albuterol 0.083% Inhal Sol (2.5 mg/3 mL) UD IH STA (11:34)
--- NOTE | 2018-09-10 11:35 | ED PDOC ---
Arrival/HPI - General Chief Complaint: Flu-like Symptoms Time Seen by Provider: 09/10/18 11:21 - History of Present Illness Narrative History of Present Illness (Text): 09/10/18 11:32 A 58 year old female, whose past medical history includes HIV, HTN, and asthma, presents to the emergency department, accompanied by daughter, complaining of flu like for the past 2 weeks. Patient reports experiencing cough, abdominal pain, rhinorrhia, wheezing, myalgia, and decreased appetite. Patient reports she was seen recently in ER for similar symptoms and states her condition worsened since her last visit. Per patient's daughter, patient has been taking steroids for her asthma and is consistent with taking her prescribed medication, including anti-viral medication. Patient denies any fever, chest pain, headache, or any other complaints. PMD: Caryl Escudero Time/Duration: > week (2 weeks) Symptom Onset: Gradual Symptom Course: Unchanged Activities at Onset: Light Context: Home Past Medical History - Provider Review Nursing Documentation Reviewed: Yes - Infectious Disease Hx of Infectious Diseases: None - Cardiac Hx Cardiac Disorders: Yes Hx Hypertension: Yes - Pulmonary Hx Respiratory Disorders: Yes (has nebulizer machine at home) Hx Asthma: Yes Other/Comment: asthma as an adult bronchial asthma as a child - Neurological Hx Neurological Disorder: No - HEENT Hx HEENT Disorder: Yes Other/Comment: pt had gland surgery 6 yrs ago due to swelling below jaw at [facility] [place], glands were swollen and needed to e removed, had 6 surgeries in 6 months left pt with swelling and scars, pt went to [facility] but problem was unable to be corrected - Renal Hx Renal Disorder: No - Endocrine/Metabolic Hx Endocrine Disorders: No - Hematological/Oncological Hx Blood Disorders: Yes - Integumentary Hx Dermatological Disorder: Yes Other/Comment: scarring under posterior b/l jaw and front of both ears and swelling - Musculoskeletal/Rheumatological Hx Musculoskeletal Disorders: Yes Hx Falls: No Hx Unsteady Gait: Yes - Gastrointestinal Hx Gastrointestinal Disorders: No - Genitourinary/Gynecological Hx Genitourinary Disorders: No - Psychiatric Hx Psychophysiologic Disorder: No Hx Substance Use: No - Surgical History Other/Comment: b/l gland sx under posterior jaw and fron of both ears, umbilical hernia sx age 10 - Anesthesia Hx Anesthesia: Yes Hx Anesthesia Reactions: No Hx Malignant Hyperthermia: No Family/Social History - Physician Review Nursing Documentation Reviewed: Yes Family/Social History: No Known Family HX Smoking Status: Light Smoker < 10 Cigarettes Daily Hx Alcohol Use: Yes (social) Hx Substance Use: No Allergies/Home Meds Allergies/Adverse Reactions: Allergies fruits Allergy (Uncoded 09/10/18 19:53) RASH Home Medications: Home Meds Medication Instructions Recorded Confirmed Elviteg/Jacqueline/Emtric/Tenofo Dis 1 tab PO DAILY 09/05/18 09/10/18 [Stribild Tablet] Sulfamethoxazole/Trimethoprim 1 tab PO BID 09/05/18 09/10/18 [Bactrim DS Tab] Review of Systems - Physician Review All systems were reviewed & negative as marked: Yes - Review of Systems Constitutional: absent: Fevers ENT: Rhinorrhea Respiratory: Cough, Wheezing Cardiovascular: absent: Chest Pain Gastrointestinal: Abdominal Pain, Appetite Changes Musculoskeletal: Myalgias Neurological: absent: Headache Physical Exam Vital Signs Reviewed: Yes Vital Signs Temp Pulse Resp BP Pulse Ox 09/10/18 11:05 82 147/85 96 09/10/18 10:41 100.8 F H 85 22 147/85 96 Temperature: Febrile Blood Pressure: Normal Pulse: Regular Respiratory Rate: Normal Appearance: Positive for: Uncomfortable Mental Status: Positive for: Alert and Oriented X 3 - Systems Exam Head: Present: Atraumatic, Normocephalic Pupils: Present: PERRL Extroacular Muscles: Present: EOMI Conjunctiva: Present: Normal Mouth: Present: Moist Mucous Membranes, Other (no thrush) Respiratory/Chest: Present: Good Air Exchange, Wheezes. No: Rhonchi Cardiovascular: Present: Regular Rate and Rhythm, Normal S1, S2. No: Murmurs Upper Extremity: Present: Normal Inspection. No: Cyanosis, Edema Lower Extremity: Present: Normal Inspection. No: Edema Neurological: Present: GCS=15, CN II-XII Intact, Speech Normal Skin: Present: Warm, Dry, Normal Color. No: Rashes Psychiatric: Present: Alert, Oriented x 3, Normal Insight, Normal Concentration Medical Decision Making ED Course and Treatment: 09/10/18 11:35 Impression: 58 year old female presenting to the emergency room complaining of flu like symptoms. Differential Diagnosis included but are not limited to: asthma exacerbation vs. viral infection Plan: -- VBG -- EKG -- Labs -- CBC -- Chest X-ray -- Albuterol -- Duoneb -- Solumedrol -- Blood culture -- Urine culture -- Urinalysis -- Reassess and disposition Prior Visits: Notes and results from previous visits were reviewed. Patient was last seen on 09/05/18 for similiar symptoms of shortness of breath, cough, and abdominal pain. Patient was discharged when condition improved. Progress Notes: 09/10/18 12:02 Procedure: Chest X-ray Dictator: Ra Ham Impression: Mild left lower lobe infiltrate. Infiltrate. Minimal right basilar atelectasis. 09/11/18 12:24 Patient was treated with antibiotics for Pneumonia. Covered for HCAP since recent hospital admission. Case was discussed with Dr. Molina, Hospitalist who will admit her to Medicine Service. On reevaluation, patient lungs sounds improved and symptoms improved. - Scribe Statement The provider has reviewed the documentation as recorded by the Scribregan Tineo All medical record entries made by the Scribe were at my direction and personally dictated by me. I have reviewed the chart and agree that the record accurately reflects my personal performance of the history, physical exam, medical decision making, and the department course for this patient. I have also personally directed, reviewed, and agree with the discharge instructions and disposition. Disposition/Present on Arrival - Present on Arrival Any Indicators Present on Arrival: No History of DVT/PE: No History of Uncontrolled Diabetes: No Urinary Catheter: No History of Decub. Ulcer: No History Surgical Site Infection Following: None - Disposition Have Diagnosis and Disposition been Completed?: Yes Diagnosis: Asthma, PNA (pneumonia) Disposition: HOSPITALIZED Disposition Time: 12:24 Patient Plan: Admission Patient Problems: Current Active Problems Problem Status Onset Asthma Acute PNA (pneumonia) Acute Condition: GOOD
[2018-09-10] MEDS ORDERED: Sodium Chloride 0.9% 1,000 ML IV STA ×2 (11:38→13:30)
[2018-09-10] MEDS ORDERED: Promethazine/Cod 6.25mg-10mg/5ml Syr UD PO STA (11:38)
--- NOTE | 2018-09-10 11:55 | RAD ---
Date of service: 09/10/2018 HISTORY: Cough; rule out pneumonia. COMPARISON: Comparison chest dated 09/05/2018 FINDINGS: LUNGS: Mild left lower lobe infiltrate. Infiltrate. Minimal right basilar atelectasis. Questionable tiny bilateral upper lobe granulomata.. PLEURA: No significant pleural effusion identified, no pneumothorax apparent. CARDIOVASCULAR: No aortic atherosclerotic calcification present. Normal cardiac size. No pulmonary vascular congestion. OSSEOUS STRUCTURES: No significant abnormalities. VISUALIZED UPPER ABDOMEN: Normal. OTHER FINDINGS: None. IMPRESSION: Mild left lower lobe infiltrate. Infiltrate. Minimal right basilar atelectasis..
[2018-09-10 12:02] LABS: BASO # 0.02 K/mm3 (0.0-2.0); BASO % 0.4 % (0.0-3.0); EOS % 0.2 % (1.5-5.0); HEMOGLOBIN 12.8 g/dL (12.0-16.0); LYMPH # 1.1 (1.2-3.4); LYMPH % 18.7 % (22.0-35.0); MEAN CELL VOLUME 93.7 fl (80.0-105.0); MEAN CORPUSCULAR HEMOGLOBIN 32.2 pg (25.0-35.0); MEAN CORPUSCULAR HGB CONC 34.4 g/dl (31.0-37.0); MEAN PLATELET VOLUME 9.7 fl (7.0-11.0); MONO # 0.4 (0.1-0.6); MONO % 7.6 % (1.0-6.0); RBC 3.97 10^6/uL (3.5-6.1); RED CELL DISTRIBUTION WIDTH 13.8 % (11.5-14.5); WHITE BLOOD COUNT 5.7 10^3/uL (4.5-11.0)
[2018-09-10 12:10] LABS: VENOUS BLOOD GAS PO2 59 mm/Hg (30-55)
[2018-09-10 12:16] LABS: ALB/GLOB RATIO 0.7 (1.1-1.8); ALT/SGPT 11 U/L (7-56); AST/SGOT 47 U/L (14-36); BLOOD UREA NITROGEN 19 mg/dL (7-21); CALCIUM 9.2 mg/dL (8.4-10.5); GFR NON-AFRICAN AMERICAN 33
[2018-09-10] MEDS ORDERED: Vancomycin 1gm in NS 250ml 1 GM/250 ML BAG IVPB STA (12:20)
[2018-09-10] MEDS ORDERED: Cefepime IV 2 gm in NS 2 GM/100 ML BAG IVPB STA (12:20)
[2018-09-10 12:23] LABS: TROPONIN I < 0.01 ng/mL
[2018-09-10] MEDS ORDERED: Albuterol-Ipratrop 3 mg / 0.5 (3 ml) UD IH PRN (13:29)
--- NOTE | 2018-09-10 14:10 | CP.PCM.HP ---
<VanessaMaikel - Last Filed: 09/10/18 13:59> History of Present Illness - History of Present Illness History of Present Illness: Maikel Mendez, PGY-1, Internal Medicine History and Physical for Dr. Molina 58 year old female with past medical history of HIV, asthma, and hypertension with recent admission on 09/05 presents with symptoms of fever, night sweats, body aches, sore throat, shortness of breath, productive cough with green sputum, and chest pain on the right sided ribs while coughing. Patient's symptoms started 2 months ago when patient was [place] [facility] She once again went [place] [facility] 2 weeks ago and was given a medrol dose pack which she did not complete. Patient was recently at [facility] where admitted to persistent cold-like symptoms which she describes as sore throat, cough, chills, and runny nose at which time Chest X ray showed no acute disease. Upon this admission, Chest X ray shows mild left lower lobe infiltrate and right bibasilar atelectasis. Patient reports she has felt febrile at home but has not checked her temperature recently. She has been soaking her sheets at home. Patient has not smoked due to chronic sore throat. Patient's symptoms of productive cough with green sputum have been happening for 2 months. She has also had multiple episodes of nonbloody, nonbloody vomitus. Right sided rib burrell started within the last 2 weeks and that provoked her to follow up at the emergency department. Patient reports taking her home medications of genoya for HIV, bactrim for PCP prophylaxis, albuterol for asthma, and amlodipine for hypertension. However, she did not take them this morning because she slept over at her daughter's house. Patient denied abdominal pain, constipation, diarrhea, dysuria, hematuria. 12- point ROS was unremarkable except for what was mentioned above. PMH: Asthma, HIV +, hypertension PSH: Umbilical hernia repair - as a child All: Fruits FMHx: noncontributary SHx: smokes 3-5 cigarettes per day, drinks coors light beer on weekends, denies recreational drugs however last UDS was positive for cocaine on prior admission 5 days ago PMD: Dr. Santillan Pharmacy: [facility] in Present on Admission - Present on Admission Any Indicators Present on Admission: No Review of Systems - Review of Systems Review of Systems: except for what was mentioned in HPI Past Patient History - Infectious Disease Hx of Infectious Diseases: None - Past Social History Smoking Status: Light Smoker < 10 Cigarettes Daily - CARDIAC Hx Cardiac Disorders: Yes Hx Hypertension: Yes - PULMONARY Hx Respiratory Disorders: Yes (has nebulizer machine at home) Hx Asthma: Yes Other/Comment: asthma as an adult bronchial asthma as a child - NEUROLOGICAL Hx Neurological Disorder: No - HEENT Hx HEENT Problems: Yes Other/Comment: pt had gland surgery 6 yrs ago due to [place] [facility] [place], glands were swollen and needed to e removed, had 6 surgeries in 6 months left pt with swelling and scars, pt went to [facility] but problem was unable to be corrected - RENAL Hx Chronic Kidney Disease: No - ENDOCRINE/METABOLIC Hx Endocrine Disorders: No - HEMATOLOGICAL/ONCOLOGICAL Hx Blood Disorders: Yes - INTEGUMENTARY Hx Dermatological Problems: Yes Other/Comment: scarring under posterior b/l jaw and front of both ears and swelling - MUSCULOSKELETAL/RHEUMATOLOGICAL Hx Musculoskeletal Disorders: Yes Hx Falls: No Hx Unsteady Gait: Yes - GASTROINTESTINAL Hx Gastrointestinal Disorders: No - GENITOURINARY/GYNECOLOGICAL Hx Genitourinary Disorders: No - PSYCHIATRIC Hx Psychophysiologic Disorder: No Hx Substance Use: No - SURGICAL HISTORY Other/Comment: b/l gland sx under posterior jaw and fron of both ears, umbilical hernia sx age 10 - ANESTHESIA Hx Anesthesia: Yes Hx Anesthesia Reactions: No Hx Malignant Hyperthermia: No Meds Allergies/Adverse Reactions: Allergies Allergy/AdvReac Type Severity Reaction Status Date / Time fruits Allergy RASH Uncoded 09/05/18 11:05 Physical Exam - Constitutional Appears: Well, Toxic, No Acute Distress - Head Exam Head Exam: ATRAUMATIC, NORMAL INSPECTION, NORMOCEPHALIC - Eye Exam Eye Exam: EOMI, PERRL - Neck Exam Neck exam: Positive for: Full Rom - Respiratory Exam Additional comments: crackles of bilateral lower lobe bases - Cardiovascular Exam Cardiovascular Exam: REGULAR RHYTHM, RRR - GI/Abdominal Exam GI & Abdominal Exam: Normal Bowel Sounds, Soft. absent: Tenderness - Extremities Exam Extremities exam: Positive for: normal inspection - Neurological Exam Neurological exam: Alert, CN II-XII Intact, Oriented x3 - Psychiatric Exam Psychiatric exam: Normal Affect, Normal Mood - Skin Skin Exam: Dry, Intact, Normal Color Results - Vital Signs Recent Vital Signs: Last Vital Signs Temp 100.8 F H 09/10/18 10:41 Pulse 85 09/10/18 12:07 Resp 18 09/10/18 12:07 BP 154/90 H 09/10/18 12:07 Pulse Ox 96 09/10/18 12:07 - Labs Result Diagrams: 09/10/18 11:50 09/10/18 11:50 Labs: Laboratory Results - last 24 hr 09/10/18 09/10/18 09/10/18 11:50 11:50 11:50 WBC 5.7 RBC 3.97 Hgb 12.8 Hct 37.2 MCV 93.7 MCH 32.2 MCHC 34.4 RDW 13.8 Plt Count 212 MPV 9.7 Neut % (Auto) 73.1 H Lymph % (Auto) 18.7 L Chester % (Auto) 7.6 H Eos % (Auto) 0.2 L Baso % (Auto) 0.4 Lymph # (Auto) 1.1 L Chester # (Auto) 0.4 Eos # (Auto) 0.0 Baso # (Auto) 0.02 Absolute Neuts (auto) 4.15 pO2 59 H VBG pH 7.40 VBG pCO2 42.0 VBG HCO3 26.0 VBG Total CO2 27.3 VBG O2 Sat (Calc) 93.8 H VBG Base Excess 1.0 VBG Potassium 4.6 Sodium 139.0 136 Chloride 107.0 108 H Glucose 110 H Lactate 1.3 FiO2 21.0 Potassium 4.6 Carbon Dioxide 26 Anion Gap 7 L BUN 19 Creatinine 1.6 H Est GFR ( Amer) 40 Est GFR (Non-Af Amer) 33 Random Glucose 114 H Calcium 9.2 Magnesium 1.8 Total Bilirubin 0.3 AST 47 H D ALT 11 Alkaline Phosphatase 94 Lactate Dehydrogenase 457 Total Creatine Kinase 85 Troponin I < 0.01 Total Protein 10.0 H Albumin 4.0 Globulin 6.1 Albumin/Globulin Ratio 0.7 L Venous Blood Potassium 4.6 Influenza Typ A,B (EIA) 09/10/18 12:50 WBC RBC Hgb Hct MCV MCH MCHC RDW Plt Count MPV Neut % (Auto) Lymph % (Auto) Chester % (Auto) Eos % (Auto) Baso % (Auto) Lymph # (Auto) Chester # (Auto) Eos # (Auto) Baso # (Auto) Absolute Neuts (auto) pO2 VBG pH VBG pCO2 VBG HCO3 VBG Total CO2 VBG O2 Sat (Calc) VBG Base Excess VBG Potassium Sodium Chloride Glucose Lactate FiO2 Potassium Carbon Dioxide Anion Gap BUN Creatinine Est GFR ( Amer) Est GFR (Non-Af Amer) Random Glucose Calcium Magnesium Total Bilirubin AST ALT Alkaline Phosphatase Lactate Dehydrogenase Total Creatine Kinase Troponin I Total Protein Albumin Globulin Albumin/Globulin Ratio Venous Blood Potassium Influenza Typ A,B (EIA) Negative for flu a/b Assessment & Plan - Assessment and Plan (Free Text) Assessment: 58 year old female with past medical history of HIV, asthma, and hypertension presents with 2 month history of productive cough with green sputum, shortness of breath likely 2/2 to pneumonia. Chest X ray on 09/10 shows mild left lower lobe infiltrate and minimal right basilar atelectasis Plan: Sepsis 2/2 Pneumonia -CXR 09/10: left lower lobe infiltrate -UA: moderate blood, negative LE and nitrate, 20-25 RBC, 0-2 WBC, 3-4 epithelial cells, moderate bacteria. Doubt UTI -Influenza negative -Follow up blood culture, urine culture, sputum culture, and procalcitonin -Lactate unremarkable -Vancomycin dose given in ED and will start zosyn for coverage of HCAP -Ordered tylenol PRN for fever of more than 100.4 or for right sided rib pain -ID, Dr. Perez, consulted for further recommendations History of HIV -CD4 count unknown -Continue with home genoya -Continue with home bactrim for PCP prophylaxis SAUL on CKD -Reported creatinine of 5 two months ago -Last documented creatinine of 1.4 -Creatinine on 09/10 was 1.6 -Started NS at 100 cc/hr Asthma -Started duonebs Q6 JESSICA and Q2PRN Hypertension -Blood pressure: 154/90 -Started home amlodipine 10 mg daily GI prophylaxis: protonix 40 mg daily DVT prophylaxis: heparin 5000 U Q8 Patient plan discussed with attending. - Date & Time Date: 09/10/18 Time: 14:12 <Rafi Molina - Last Filed: 09/10/18 15:39> Results - Vital Signs Recent Vital Signs: Last Vital Signs Temp 99.8 F H 09/10/18 14:00 Pulse 75 09/10/18 15:30 Resp 18 09/10/18 15:30 BP 126/58 L 02/16/19 15:30 Pulse Ox 96 09/10/18 15:30 - Labs Result Diagrams: 09/10/18 11:50 09/10/18 11:50 Labs: Laboratory Results - last 24 hr 09/10/18 09/10/18 09/10/18 11:50 11:50 11:50 WBC 5.7 RBC 3.97 Hgb 12.8 Hct 37.2 MCV 93.7 MCH 32.2 MCHC 34.4 RDW 13.8 Plt Count 212 MPV 9.7 Neut % (Auto) 73.1 H Lymph % (Auto) 18.7 L Chester % (Auto) 7.6 H Eos % (Auto) 0.2 L Baso % (Auto) 0.4 Lymph # (Auto) 1.1 L Chester # (Auto) 0.4 Eos # (Auto) 0.0 Baso # (Auto) 0.02 Absolute Neuts (auto) 4.15 pO2 59 H VBG pH 7.40 VBG pCO2 42.0 VBG HCO3 26.0 VBG Total CO2 27.3 VBG O2 Sat (Calc) 93.8 H VBG Base Excess 1.0 VBG Potassium 4.6 Sodium 139.0 136 Chloride 107.0 108 H Glucose 110 H Lactate 1.3 FiO2 21.0 Potassium 4.6 Carbon Dioxide 26 Anion Gap 7 L BUN 19 Creatinine 1.6 H Est GFR ( Amer) 40 Est GFR (Non-Af Amer) 33 Random Glucose 114 H Calcium 9.2 Phosphorus 2.9 Magnesium 1.8 Total Bilirubin 0.3 AST 47 H D ALT 11 Alkaline Phosphatase 94 Lactate Dehydrogenase 457 Total Creatine Kinase 85 Troponin I < 0.01 Total Protein 10.0 H Albumin 4.0 Globulin 6.1 Albumin/Globulin Ratio 0.7 L Venous Blood Potassium 4.6 Influenza Typ A,B (EIA) 09/10/18 12:50 WBC RBC Hgb Hct MCV MCH MCHC RDW Plt Count MPV Neut % (Auto) Lymph % (Auto) Chester % (Auto) Eos % (Auto) Baso % (Auto) Lymph # (Auto) Chester # (Auto) Eos # (Auto) Baso # (Auto) Absolute Neuts (auto) pO2 VBG pH VBG pCO2 VBG HCO3 VBG Total CO2 VBG O2 Sat (Calc) VBG Base Excess VBG Potassium Sodium Chloride Glucose Lactate FiO2 Potassium Carbon Dioxide Anion Gap BUN Creatinine Est GFR ( Amer) Est GFR (Non-Af Amer) Random Glucose Calcium Phosphorus Magnesium Total Bilirubin AST ALT Alkaline Phosphatase Lactate Dehydrogenase Total Creatine Kinase Troponin I Total Protein Albumin Globulin Albumin/Globulin Ratio Venous Blood Potassium Influenza Typ A,B (EIA) Negative for flu a/b Attending/Attestation - Attestation I have personally seen and examined this patient.: Yes I have fully participated in the care of the patient.: Yes I have reviewed all pertinent clinical information: Yes Notes (Text): 09/10/18 15:37 58 year old female with past medical history of HIV, asthma and hypertension who presents with cough, fever and shortness of breath. Found to have mild left lower lobe infiltrate on CXR. Will start on iv antibio tics. Follow up on cultures. ID evaluation is requested. Started on iv fluids for mild acute on chronic renal failure. Continue with duonebs for mild intermittent asthma. Rafi Molina MD Hospitalist.
[2018-09-10] MEDS: Albuterol-Ipratrop 3 mg / 0.5 (3 ml) UD IH SCH ×2 (14:39→20:03)
[2018-09-10] MEDS: Piperacillin/Tazobact 3.375 gm 100 ML IVPB SCH ×2 (14:43→22:29)
[2018-09-10] MEDS: Tmp-Smz 800 mg-160 mg DS Tab PO SCH (17:32)
--- NOTE | 2018-09-10 19:59 | CARD ---
APPROVED REPORT Date of service: 09/10/2018 EKG Measurement Heart [id number] <Conclusion> Baserline artifact Normal sinus rhythm Normal ECG
[2018-09-10] MEDS ORDERED: Influenza Vaccine 60 mcg/0.5 mL SYR (4YR UP) IM ONE (22:09)
[2018-09-10] MEDS ORDERED: Pneumococcal 23-Valent Vaccine IM ONE (22:09)
--- NOTE | 2018-09-10 22:49 | CP.PCM.CON ---
History of Present Illness - History of Present Illness History of Present Illness: Infectious Disease Consultation: September 10, 2018 58 yo AA female with past medical history of HIV, asthma, and hypertension with recent [place] [facility] presents with symptoms of fever, night sweats, body aches, sore throat, shortness of breath, productive cough with green sputum, and chest pain on the right side while coughing. Patient states symptoms started 2 months ago when patient was evaluated at [facility]. On another visit to [facility] ER 2 weeks ago, she was given a medrol dose pack which she did not complete. Patient then came to [facility] about a week ago, and she was admitted for persistent cold-like symptoms including sore throat, cough, chills, and runny nose but Chest X ray showed no acute disease. For this hospitalization, Chest X ray shows mild left lower lobe infiltrate and right bibasilar atelectasis. Patient did not think she had fevers but she has had heavy sweating. Patient continues to have productive cough with green sputum. She states having multiple episodes of non-bloody non-bilious vomitus. She started having Right sided rib burrell 2 weeks ago. Patient reports taking her home medications of Genoya (HAART) for HIV, bactrim for PCP prophylaxis, albu terol for asthma, and amlodipine for hypertension. The patient follows at the [facility] from [facility]. Will check the prior CD4 and HIV viral load there. PMHx: HIV Asthma, HTN PSHx: none given Allergies: fruits? not willing to elaborate at this time. Social Hx: Had a positive UDS for Cocaine on last hospitalization 3-5 cig/day tobacco Beer on weekends Active Medications Acetaminophen (Tylenol 325mg Tab) 650 mg PO Q6H PRN PRN Reason: Fever >100.4 F Acetaminophen (Tylenol 325mg Tab) 650 mg PO Q6H PRN PRN Reason: Pain, moderate (4-7) Albuterol/Ipratropium (Duoneb 3 Mg/0.5 Mg (3 Ml) Ud) 3 ml IH [id number] JESSICA Last Admin: 09/10/18 20:03 Dose: 3 ml Albuterol/Ipratropium (Duoneb 3 Mg/0.5 Mg (3 Ml) Ud) 3 ml IH Q2H PRN PRN Reason: Shortness of Breath Last Admin: 09/10/18 17:35 Dose: 3 ml Amlodipine Besylate (Norvasc) 10 mg PO DAILY [facility] Heparin Sodium (Porcine) (Heparin) 5,000 units SC Q8 JESSICA; Protocol Last Admin: 09/10/18 22:30 Dose: 5,000 units Piperacillin Sod/Tazobactam Sod (Zosyn 3.375 In Ns 100ml) 100 mls @ 25 mls/hr IVPB Q8 JESSICA; Protocol Stop: 09/11/18 09:59 Last Admin: 09/10/18 22:29 Dose: 25 mls/hr Non-Formulary Medication (Elviteg/Jacqueline/Emtric/Tenofo Dis [Stribild Tablet]) 1 tab PO DAILY [facility] Pantoprazole Sodium (Protonix Ec Tab) 40 mg PO DAILY [facility] Trimethoprim/Sulfamethoxazole (Bactrim Ds Tab) 1 tab PO BID [facility]; Protocol Last Admin: 09/10/18 17:32 Dose: 1 tab Family Hx: none given ROS: cough, chest pain, SOB, nausea, vomiting, headaches No abdominal pain, melena, hematuria, hematemesis, hematochezia, depression, anxiety. Past Patient History - Infectious Disease Hx of Infectious Diseases: None - Past Social History Smoking Status: Current Some Days Smoker - CARDIAC Hx Cardiac Disorders: Yes Hx Hypertension: Yes - PULMONARY Hx Respiratory Disorders: Yes (has nebulizer machine at home,SMOKES 3 CIGARETTES A DAY.) Hx Asthma: Yes Other/Comment: asthma as an adult bronchial asthma as a child - NEUROLOGICAL Hx Neurological Disorder: No - HEENT Hx HEENT Problems: Yes Other/Comment: pt had gland surgery 6 yrs ago due to swelling below jaw at [facility] [place], glands were swollen and needed to e removed, had 6 surgeries in 6 months left pt with swelling and scars, pt went to [facility] but problem was unable to be corrected - RENAL Hx Chronic Kidney Disease: No - ENDOCRINE/METABOLIC Hx Endocrine Disorders: No - HEMATOLOGICAL/ONCOLOGICAL Hx Blood Disorders: Yes - INTEGUMENTARY Hx Dermatological Problems: Yes Other/Comment: scarring under posterior b/l jaw and front of both ears and swelling - MUSCULOSKELETAL/RHEUMATOLOGICAL Hx Musculoskeletal Disorders: Yes Hx Falls: No Hx Unsteady Gait: Yes - GASTROINTESTINAL Hx Gastrointestinal Disorders: No - GENITOURINARY/GYNECOLOGICAL Hx Genitourinary Disorders: No - PSYCHIATRIC Hx Psychophysiologic Disorder: Yes (SMOKES CIGARETTES,SNORTS COCAINE) Hx Substance Use: Yes (H/O OF COCAINE ABUSE-LAST USED LAST WEEK.COCAINE-SNORTS.) - SURGICAL HISTORY Hx Surgeries: Yes (HERNIORHAPPHY.) Other/Comment: b/l gland sx under posterior jaw and fron of both ears, umbilical hernia sx age 10 - ANESTHESIA Hx Anesthesia: Yes Hx Anesthesia Reactions: No Hx Malignant Hyperthermia: No Meds Allergies/Adverse Reactions: Allergies Allergy/AdvReac Type Severity Reaction Status Date / Time fruits Allergy RASH Uncoded 09/10/18 19:53 - Medications Medications: Current Medications Acetaminophen (Tylenol 325mg Tab) 650 mg PO Q6H PRN PRN Reason: Fever >100.4 F Acetaminophen (Tylenol 325mg Tab) 650 mg PO Q6H PRN PRN Reason: Pain, moderate (4-7) Albuterol/Ipratropium (Duoneb 3 Mg/0.5 Mg (3 Ml) Ud) 3 ml IH [id number] JESSICA Last Admin: 09/10/18 20:03 Dose: 3 ml Albuterol/Ipratropium (Duoneb 3 Mg/0.5 Mg (3 Ml) Ud) 3 ml IH Q2H PRN PRN Reason: Shortness of Breath Last Admin: 09/10/18 17:35 Dose: 3 ml Amlodipine Besylate (Norvasc) 10 mg PO DAILY [facility] Heparin Sodium (Porcine) (Heparin) 5,000 units SC Q8 JESSICA; Protocol Last Admin: 09/10/18 22:30 Dose: 5,000 units Piperacillin Sod/Tazobactam Sod (Zosyn 3.375 In Ns 100ml) 100 mls @ 25 mls/hr IVPB Q8 [facility]; Protocol Stop: 09/11/18 09:59 Last Admin: 09/10/18 22:29 Dose: 25 mls/hr Sodium Chloride (Sodium Chloride 0.9%) 1,000 mls @ 100 mls/hr IV .Q10H STA Stop: 09/10/18 23:29 Last Admin: 09/10/18 13:49 Dose: 100 mls/hr Non-Formulary Medication (Elviteg/Jacqueline/Emtric/Tenofo Dis [Stribild Tablet]) 1 tab PO DAILY [facility] Pantoprazole Sodium (Protonix Ec Tab) 40 mg PO DAILY JESSICA Trimethoprim/Sulfamethoxazole (Bactrim Ds Tab) 1 tab PO BID JESSICA; Protocol Last Admin: 09/10/18 17:32 Dose: 1 tab Physical Exam - Constitutional Appears: Non-toxic, No Acute Distress, Chronically Ill - Head Exam Head Exam: ATRAUMATIC, NORMOCEPHALIC - Eye Exam Eye Exam: EOMI, PERRL Pupil Exam: NORMAL ACCOMODATION, PERRL - ENT Exam ENT Exam: Mucous Membranes Moist, Normal External Ear Exam, TM's Normal Bilaterally - Neck Exam Neck exam: Positive for: Full Rom, Normal Inspection - Respiratory Exam Respiratory Exam: Decreased Breath Sounds, Rhonchi (bilateral bases of lungs.). absent: Wheezes - Cardiovascular Exam Cardiovascular Exam: REGULAR RHYTHM, RRR, +S1, +S2 - GI/Abdominal Exam GI & Abdominal Exam: Normal Bowel Sounds, Soft. absent: Distended, Tenderness - Extremities Exam Extremities exam: Positive for: full ROM, normal inspection - Neurological Exam Neurological exam: Alert, CN II-XII Intact, Oriented x3 - Psychiatric Exam Psychiatric exam: Normal Affect, Normal Mood - Skin Skin Exam: Intact, Normal Color Results - Vital Signs Recent Vital Signs: Last Vital Signs Temp 97.7 F 09/10/18 22:15 Pulse 85 09/10/18 22:15 Resp 20 09/10/18 22:15 BP 139/72 09/10/18 22:15 Pulse Ox 94 L 09/10/18 22:15 - Labs Result Diagrams: 09/10/18 11:50 09/10/18 11:50 Labs: Laboratory Results - last 24 hr 09/10/18 09/10/18 09/10/18 11:50 11:50 11:50 WBC 5.7 RBC 3.97 Hgb 12.8 Hct 37.2 MCV 93.7 MCH 32.2 MCHC 34.4 RDW 13.8 Plt Count 212 MPV 9.7 Neut % (Auto) 73.1 H Lymph % (Auto) 18.7 L Newton % (Auto) 7.6 H Eos % (Auto) 0.2 L Baso % (Auto) 0.4 Lymph # (Auto) 1.1 L Newton # (Auto) 0.4 Eos # (Auto) 0.0 Baso # (Auto) 0.02 Absolute Neuts (auto) 4.15 pO2 59 H VBG pH 7.40 VBG pCO2 42.0 VBG HCO3 26.0 VBG Total CO2 27.3 VBG O2 Sat (Calc) 93.8 H VBG Base Excess 1.0 VBG Potassium 4.6 Sodium 139.0 136 Chloride 107.0 108 H Glucose 110 H Lactate 1.3 FiO2 21.0 Potassium 4.6 Carbon Dioxide 26 Anion Gap 7 L BUN 19 Creatinine 1.6 H Est GFR ( Amer) 40 Est GFR (Non-Af Amer) 33 Random Glucose 114 H Calcium 9.2 Phosphorus 2.9 Magnesium 1.8 Total Bilirubin 0.3 AST 47 H D ALT 11 Alkaline Phosphatase 94 Lactate Dehydrogenase 457 Total Creatine Kinase 85 Troponin I < 0.01 Total Protein 10.0 H Albumin 4.0 Globulin 6.1 Albumin/Globulin Ratio 0.7 L Procalcitonin Venous Blood Potassium 4.6 Influenza Typ A,B (EIA) 09/10/18 09/10/18 12:50 14:58 WBC RBC Hgb Hct MCV MCH MCHC RDW Plt Count MPV Neut % (Auto) Lymph % (Auto) Newton % (Auto) Eos % (Auto) Baso % (Auto) Lymph # (Auto) Newton # (Auto) Eos # (Auto) Baso # (Auto) Absolute Neuts (auto) pO2 VBG pH VBG pCO2 VBG HCO3 VBG Total CO2 VBG O2 Sat (Calc) VBG Base Excess VBG Potassium Sodium Chloride Glucose Lactate FiO2 Potassium Carbon Dioxide Anion Gap BUN Creatinine Est GFR ( Amer) Est GFR (Non-Af Amer) Random Glucose Calcium Phosphorus Magnesium Total Bilirubin AST ALT Alkaline Phosphatase Lactate Dehydrogenase Total Creatine Kinase Troponin I Total Protein Albumin Globulin Albumin/Globulin Ratio Procalcitonin < 0.05 L Venous Blood Potassium Influenza Typ A,B (EIA) Negative for flu a/b Assessment & Plan - Assessment and Plan (Free Text) Assessment: 58 yo AA female with HIV with unknown CD4 and HIV Viral load who is on Bactrim normally. The patient states that she takes her HAART. LLL pneumonia as per Chest X-ray. Fevers up to 100.8 F. Recheck HIV Viral Load and CD4 count. Will see into past numbers at [facility] and [facility]. Continue with IV antibiotics of Zosyn. Once CD4 is known, risk for PCP pneumonia can be better assessed. Bactrim dosing increased from preventative dosing to treatment dosing. Supportive care. Thank you for allowing me to participate in the care of the patient, we will follow with you.
[2018-09-11] MEDS: Albuterol-Ipratrop 3 mg / 0.5 (3 ml) UD IH SCH ×4 (01:41→20:30)
[2018-09-11] MEDS: Piperacillin/Tazobact 3.375 gm 100 ML IVPB SCH ×3 (05:40→21:22)
[2018-09-11 07:56] LABS: BASO # 0.01 K/mm3 (0.0-2.0); BASO % 0.2 % (0.0-3.0); HEMOGLOBIN 10.3 g/dL (12.0-16.0); LYMPH # 0.8 (1.2-3.4); LYMPH % 14.8 % (22.0-35.0); MEAN CELL VOLUME 93.7 fl (80.0-105.0); MEAN CORPUSCULAR HEMOGLOBIN 30.7 pg (25.0-35.0); MEAN CORPUSCULAR HGB CONC 32.8 g/dl (31.0-37.0); MEAN PLATELET VOLUME 9.8 fl (7.0-11.0); MONO # 0.5 (0.1-0.6); MONO % 9.3 % (1.0-6.0); RBC 3.35 10^6/uL (3.5-6.1); RED CELL DISTRIBUTION WIDTH 13.9 % (11.5-14.5); WHITE BLOOD COUNT 5.6 10^3/uL (4.5-11.0)
[2018-09-11 08:29] LABS: ALB/GLOB RATIO 0.6 (1.1-1.8); ALBUMIN 3.4 g/dL (3.0-4.8); CALCIUM 8.4 mg/dL (8.4-10.5)
[2018-09-11] MEDS: guaiFENesin 100 mg/5 ml Syrup UD PO PRN ×3 (08:51→21:23)
[2018-09-11] MEDS ORDERED: Non Formulary Medication (Elviteg/Cobi/Emtric/Tenofo Dis [Stribild Tablet] 1 TAB) PO SCH (10:00)
[2018-09-11] MEDS: Pantoprazole 40 mg EC Tab PO SCH (11:09)
[2018-09-11] MEDS: Tmp-Smz 800 mg-160 mg DS Tab PO SCH ×2 (12:49→18:42)
--- NOTE | 2018-09-11 14:43 | CP.PCM.PN ---
<Maikel Mendez - Last Filed: 09/11/18 16:33> Subjective - Date & Time of Evaluation Date of Evaluation: 09/11/18 Time of Evaluation: 14:36 - Subjective Subjective: Maikel Mendez, PGY-1, Internal Medicine Progress Note for Dr. Molina Patient was seen and evaluated at bedside. Patient had dry, nonproductive cough overnight. Patient currently complains of cough with associated rib pain and abdominal pain. Patient was afebrile overnight. Patient denies fever, nausea, vomiting, constipation, diarrhea, blood in stool, dysuria, hematuria. 12-point ROS was unremarkable except for what was mentioned above. Objective - Vital Signs/Intake and Output Vital Signs (last 24 hours): Temp Pulse Resp BP Pulse Ox 98.5 F 89 20 156/93 H 94 L 09/11/18 14:00 09/11/18 14:00 09/11/18 14:00 09/11/18 14:00 09/11/18 14:00 - Medications Medications: Current Medications Acetaminophen (Tylenol 325mg Tab) 650 mg PO Q6H PRN PRN Reason: Fever >100.4 F Acetaminophen (Tylenol 325mg Tab) 650 mg PO Q6H PRN PRN Reason: Pain, moderate (4-7) Last Admin: 09/11/18 14:26 Dose: 650 mg Albuterol/Ipratropium (Duoneb 3 Mg/0.5 Mg (3 Ml) Ud) 3 ml IH [id number] JESSICA Last Admin: 09/11/18 08:54 Dose: 3 ml Albuterol/Ipratropium (Duoneb 3 Mg/0.5 Mg (3 Ml) Ud) 3 ml IH Q2H PRN PRN Reason: Shortness of Breath Last Admin: 09/10/18 17:35 Dose: 3 ml Amlodipine Besylate (Norvasc) 10 mg PO DAILY [facility] Last Admin: 09/11/18 11:08 Dose: 10 mg Guaifenesin (Robitussin) 100 mg PO Q4H PRN PRN Reason: Cough Last Admin: 09/11/18 12:55 Dose: 100 mg Heparin Sodium (Porcine) (Heparin) 5,000 units SC Q8 JESSICA; Protocol Last Admin: 09/11/18 05:36 Dose: 5,000 units Piperacillin Sod/Tazobactam Sod (Zosyn 3.375 In Ns 100ml) 100 mls @ 25 mls/hr IVPB Q8 [facility]; Protocol Last Admin: 09/11/18 05:40 Dose: 25 mls/hr Non-Formulary Medication (Elviteg/Jacqueline/Emtric/Tenofo Dis [Stribild Tablet]) 1 tab PO DAILY [facility] Pantoprazole Sodium (Protonix Ec Tab) 40 mg PO DAILY [facility] Last Admin: 09/11/18 11:09 Dose: 40 mg Trimethoprim/Sulfamethoxazole (Bactrim Ds Tab) 1 tab PO BID [facility]; Protocol Last Admin: 09/11/18 12:49 Dose: 1 tab - Labs Labs: 09/11/18 07:30 09/11/18 07:30 - Constitutional Appears: Well, Toxic, No Acute Distress - Head Exam Head Exam: ATRAUMATIC, NORMAL INSPECTION, NORMOCEPHALIC - Eye Exam Eye Exam: EOMI, PERRL - Neck Exam Neck exam: Positive for: Full Rom - Respiratory Exam Additional comments: crackles of bilateral lower lobe bases - Cardiovascular Exam Cardiovascular Exam: REGULAR RHYTHM, RRR - GI/Abdominal Exam GI & Abdominal Exam: Normal Bowel Sounds, Soft. absent: Tenderness - Extremities Exam Extremities exam: Positive for: normal inspection - Neurological Exam Neurological exam: Alert, CN II-XII Intact, Oriented x3 - Psychiatric Exam Psychiatric exam: Normal Affect, Normal Mood - Skin Skin Exam: Dry, Intact, Normal Color Assessment and Plan - Assessment and Plan (Free Text) Assessment: 58 year old female with past medical history of HIV, asthma, and hypertension presents with 2 month history of productive cough with green sputum, shortness of breath likely 2/2 to pneumonia. Chest X ray on 09/10 shows mild left lower lobe infiltrate and minimal right basilar atelectasis Plan: Sepsis 2/2 Pneumonia -CXR 09/10: left lower lobe infiltrate -UA: moderate blood, negative LE and nitrate, 20-25 RBC, 0-2 WBC, 3-4 epithelial cells, moderate bacteria. Doubt UTI -Influenza negative -Blood culture: 09/10: negative for 24 hours -Urine culture: pending -Sputum culture: pending -Procalcitonin: <0.05 -Lactate unremarkable -Continue with bactrim and zosyn day 2 for suspected HCAP -Ordered tylenol PRN for fever of more than 100.4 or for right sided rib pain -One dose of tramadol ordered for severe right sided rib pain -Started robitussin PRN, cepacol, and tessalon perles for cough. -ID, Dr. Perez, consulted for further recommendations History of HIV -CD4 count unknown. Will follow up value from [facility] [place] [place] -Continue with home genoya -Continue with therapeutic bactrim for PCP prophylaxis SAUL on CKD -Reported creatinine of 5 two months ago -Last documented creatinine of 1.4 -Creatinine on 09/11 was 1.6 -Continue NS at 100 cc/hr Asthma -Continue duonebs Q6 JESSICA and Q2PRN Hypertension -Blood pressure: 156/93 -Continue home amlodipine 10 mg daily Normocytic Anemia -Hgb: 10.3 from 12.8 -Patient currently has not had any dark stool. -Will continue to monitor and evaluate. Possibly secondary to anemia of chronic disease from infection vs. iron deficiency anemia. GI prophylaxis: protonix 40 mg daily DVT prophylaxis: heparin 5000 U Q8 Patient plan discussed with attending. <Rafi Molina - Last Filed: 09/11/18 16:43> Objective - Vital Signs/Intake and Output Vital Signs (last 24 hours): Temp Pulse Resp BP Pulse Ox 98.5 F 89 20 156/93 H 94 L 09/11/18 14:00 09/11/18 14:00 09/11/18 14:00 09/11/18 14:00 09/11/18 14:00 - Medications Medications: Current Medications Acetaminophen (Tylenol 325mg Tab) 650 mg PO Q6H PRN PRN Reason: Fever >100.4 F Acetaminophen (Tylenol 325mg Tab) 650 mg PO Q6H PRN PRN Reason: Pain, moderate (4-7) Last Admin: 09/11/18 14:26 Dose: 650 mg Albuterol/Ipratropium (Duoneb 3 Mg/0.5 Mg (3 Ml) Ud) 3 ml IH [id number] JESSICA Last Admin: 09/11/18 15:24 Dose: Not Given Albuterol/Ipratropium (Duoneb 3 Mg/0.5 Mg (3 Ml) Ud) 3 ml IH Q2H PRN PRN Reason: Shortness of Breath Last Admin: 09/10/18 17:35 Dose: 3 ml Amlodipine Besylate (Norvasc) 10 mg PO DAILY [facility] Last Admin: 09/11/18 11:08 Dose: 10 mg Benzocaine/Menthol (Cepacol Sore Throat) 1 gutierrez MT Q2H PRN PRN Reason: Sore Throat Last Admin: 09/11/18 16:11 Dose: 1 gutierrez Benzonatate (Tessalon Perles) 100 mg PO TID [facility]ESS[facility] Last Admin: 09/11/18 16:11 Dose: 100 mg Guaifenesin (Robitussin) 100 mg PO Q4H PRN PRN Reason: Cough Last Admin: 09/11/18 12:55 Dose: 100 mg Heparin Sodium (Porcine) (Heparin) 5,000 units SC Q8 [facility]; Protocol Last Admin: 09/11/18 14:52 Dose: 5,000 units Piperacillin Sod/Tazobactam Sod (Zosyn 3.375 In Ns 100ml) 100 mls @ 25 mls/hr IVPB Q8 [facility]; Protocol Last Admin: 09/11/18 14:52 Dose: 25 mls/hr Non-Formulary Medication (Elviteg/Jacqueline/Emtric/Tenofo Dis [Stribild Tablet]) 1 tab PO DAILY [facility] Last Admin: 09/11/18 14:59 Dose: Not Given Pantoprazole Sodium (Protonix Ec Tab) 40 mg PO DAILY [facility] Last Admin: 09/11/18 11:09 Dose: 40 mg Trimethoprim/Sulfamethoxazole (Bactrim Ds Tab) 1 tab PO BID [facility]; Protocol Last Admin: 09/11/18 12:49 Dose: 1 tab - Labs Labs: 09/11/18 07:30 09/11/18 07:30 Attending/Attestation - Attestation I have personally seen and examined this patient.: Yes I have fully participated in the care of the patient.: Yes I have reviewed all pertinent clinical information, including history, physical exam and plan: Yes Notes (Text): 09/11/18 16:42 58 year old female with past medical history of HIV, asthma and hypertension who presents with cough, fever and shortness of breath. Chest xray showed left lower lobe infiltrate on CXR. Continue with iv antibiotics. Follow up on cultures. ID is following. Continue with iv fluids for mild acute on chronic renal failure. Continue with duonebs for mild intermittent asthma. Robitussin added for cough in addition to lozenges. Rafi Molina MD Hospitalist.
[2018-09-11] MEDS: Non Formulary Medication (Elviteg/Cobi/Emtric/Tenofo Dis [Stribild Tablet] 1 TAB) PO SCH (14:59)
[2018-09-11] MEDS: Benzocaine/Menthol (Cepacol) Lozenge MT PRN (16:11)
--- NOTE | 2018-09-11 16:38 | CP.PCM.PN ---
Subjective - Date & Time of Evaluation Date of Evaluation: 09/11/18 Time of Evaluation: 14:15 - Subjective Subjective: Infectious Disease Follow Up: September 11, 2018 58 yo AA female with past medical history of HIV, asthma, and hypertension with [place] [facility] presents with symptoms of fever, night sweats, body aches, sore throat, shortness of breath, productive cough with green sputum, and chest pain on the right side while coughing. Patient states symptoms started 2 months ago when patient was evaluated at [facility]. On another visit to [facility] ER 2 weeks ago, she was given a medrol dose pack which she did not complete. Patient then came to [facility] about a week ago, and she was admitted for p ersistent cold-like symptoms including sore throat, cough, chills, and runny nose but Chest X ray showed no acute disease. For this hospitalization, Chest X ray shows mild left lower lobe infiltrate and right bibasilar atelectasis. Patient did not think she had fevers but she has had heavy sweating. Patient continues to have productive cough with green sputum. She states having multiple episodes of non-bloody non-bilious vomitus. She started having Right sided rib burrell 2 weeks ago. Patient reports taking her home medications of Genoya (HAART) for HIV, bactrim for PCP prophylaxis, albuterol for asthma, and amlodipine for hypertension. The patient follows at the [facility] from [facility]. Will check the prior CD4 and HIV viral load there. A repeat CD4 and HIV Viral load should be performed here. The patient has no leukocytosis. Cultures negative to date. ON Bactrim and Zosyn for antibiotic coverage. Objective - Vital Signs/Intake and Output Vital Signs (last 24 hours): Temp Pulse Resp BP Pulse Ox 98.5 F 89 20 156/93 H 94 L 09/11/18 14:00 09/11/18 14:00 09/11/18 14:00 09/11/18 14:09/11/18 14:00 - Medications Medications: Current Medications Acetaminophen (Tylenol 325mg Tab) 650 mg PO Q6H PRN PRN Reason: Fever >100.4 F Acetaminophen (Tylenol 325mg Tab) 650 mg PO Q6H PRN PRN Reason: Pain, moderate (4-7) Last Admin: 09/11/18 14:26 Dose: 650 mg Albuterol/Ipratropium (Duoneb 3 Mg/0.5 Mg (3 Ml) Ud) 3 ml IH [id number] [facility] Last Admin: 09/11/18 15:24 Dose: Not Given Albuterol/Ipratropium (Duoneb 3 Mg/0.5 Mg (3 Ml) Ud) 3 ml IH Q2H PRN PRN Reason: Shortness of Breath Last Admin: 09/10/18 17:35 Dose: 3 ml Amlodipine Besylate (Norvasc) 10 mg PO DAILY [facility] Last Admin: 09/11/18 11:08 Dose: 10 mg Benzocaine/Menthol (Cepacol Sore Throat) 1 gutierrez MT Q2H PRN PRN Reason: Sore Throat Last Admin: 09/11/18 16:11 Dose: 1 gutierrez Benzonatate (Tessalon Perles) 100 mg PO TID [facility] Last Admin: 09/11/18 16:11 Dose: 100 mg Guaifenesin (Robitussin) 100 mg PO Q4H PRN PRN Reason: Cough Last Admin: 09/11/18 12:55 Dose: 100 mg Heparin Sodium (Porcine) (Heparin) 5,000 units SC Q8 [facility]; Protocol Last Admin: 09/11/18 14:52 Dose: 5,000 units Piperacillin Sod/Tazobactam Sod (Zosyn 3.375 In Ns 100ml) 100 mls @ 25 mls/hr IVPB Q8 [facility]; Protocol Last Admin: 09/11/18 14:52 Dose: 25 mls/hr Non-Formulary Medication (Elviteg/Jacqueline/Emtric/Tenofo Dis [Stribild Tablet]) 1 tab PO DAILY [facility] Last Admin: 09/11/18 14:59 Dose: Not Given Pantoprazole Sodium (Protonix Ec Tab) 40 mg PO DAILY [facility] Last Admin: 09/11/18 11:09 Dose: 40 mg Trimethoprim/Sulfamethoxazole (Bactrim Ds Tab) 1 tab PO BID [facility]; Protocol Last Admin: 09/11/18 12:49 Dose: 1 tab - Labs Labs: 09/11/18 07:30 09/11/18 07:30 - Constitutional Appears: Non-toxic, No Acute Distress, Chronically Ill - Head Exam Head Exam: ATRAUMATIC, NORMOCEPHALIC - Eye Exam Eye Exam: EOMI, PERRL Pupil Exam: NORMAL ACCOMODATION, PERRL - ENT Exam ENT Exam: Mucous Membranes Moist, Normal External Ear Exam, TM's Normal Bilaterally - Neck Exam Neck Exam: Full ROM, Normal Inspection - Respiratory Exam Respiratory Exam: Decreased Breath Sounds, Rhonchi. absent: Rales, Wheezes Additional comments: bilateral bases of lungs. - Cardiovascular Exam Cardiovascular Exam: REGULAR RHYTHM, RRR, +S1, +S2 - GI/Abdominal Exam GI & Abdominal Exam: Soft, Normal Bowel Sounds. absent: Distended, Tenderness - Extremities Exam Extremities Exam: Full ROM, Normal Inspection - Neurological Exam Neurological Exam: Alert, Awake, CN II-XII Intact, Oriented x3 - Psychiatric Exam Psychiatric exam: Normal Affect, Normal Mood - Skin Skin Exam: Intact, Normal Color Assessment and Plan - Assessment and Plan (Free Text) Assessment: 58 yo AA female with HIV with unknown CD4 and HIV Viral load who is on Bactrim normally. The patient states that she takes her HAART. LLL pneumonia as per Chest X-ray. Fevers up to 100.8 F yesterday. Afebrile today. Recheck HIV Viral Load and CD4 count. Will see into past numbers at [facility]. Continue with IV antibiotics of Zosyn. Once CD4 is known, risk for PCP pneumonia can be better assessed. Bactrim dosing increased from preventative dosing to treatment dosing. Supportive care. No leukocytosis. Afebrile today. Cultures negative to date. Thank you for allowing me to participate in the care of the patient, we will follow with you.
[2018-09-11 23:10] LABS: ARTERIAL BLOOD GAS O2 SAT 93.9 % (95-98); ARTERIAL BLOOD GAS PCO2 31 mm/Hg (35-45); ARTERIAL BLOOD GAS PH 7.46 (7.35-7.45)
[2018-09-12] MEDS: Albuterol-Ipratrop 3 mg / 0.5 (3 ml) UD IH SCH ×4 (01:32→20:16)
[2018-09-12] MEDS: Piperacillin/Tazobact 3.375 gm 100 ML IVPB SCH ×3 (05:01→21:55)
[2018-09-12] MEDS: guaiFENesin 100 mg/5 ml Syrup UD PO PRN ×3 (05:29→18:47)
[2018-09-12 07:07] LABS: BASO # 0.01 K/mm3 (0.0-2.0); BASO % 0.2 % (0.0-3.0); HEMOGLOBIN 11.5 g/dL (12.0-16.0); LYMPH # 1.1 (1.2-3.4); LYMPH % 19.5 % (22.0-35.0); MEAN CELL VOLUME 92.8 fl (80.0-105.0); MEAN CORPUSCULAR HEMOGLOBIN 30.8 pg (25.0-35.0); MEAN CORPUSCULAR HGB CONC 33.2 g/dl (31.0-37.0); MEAN PLATELET VOLUME 9.8 fl (7.0-11.0); MONO # 0.3 (0.1-0.6); MONO % 5.3 % (1.0-6.0); RBC 3.73 10^6/uL (3.5-6.1); WHITE BLOOD COUNT 5.5 10^3/uL (4.5-11.0)
[2018-09-12 07:38] LABS: ALB/GLOB RATIO 0.7 (1.1-1.8); ALBUMIN 3.6 g/dL (3.0-4.8); CALCIUM 8.7 mg/dL (8.4-10.5)
[2018-09-12] MEDS: Pantoprazole 40 mg EC Tab PO SCH (10:42)
[2018-09-12] MEDS: Benzocaine/Menthol (Cepacol) Lozenge MT PRN (10:42)
[2018-09-12] MEDS: Non Formulary Medication (Elviteg/Cobi/Emtric/Tenofo Dis [Stribild Tablet] 1 TAB) PO SCH (10:45)
[2018-09-12] MEDS: Tmp-Smz 800 mg-160 mg DS Tab PO SCH ×2 (13:34→18:47)
[2018-09-12] MEDS: Vancomycin 1gm in NS 250ml 1 GM/250 ML BAG IVPB SCH (16:10)
[2018-09-12] MEDS: GENVOYA PO SCH (16:21)
--- NOTE | 2018-09-12 16:36 | CP.PCM.PN ---
<Maikel Mendez - Last Filed: 09/12/18 16:30> Subjective - Date & Time of Evaluation Date of Evaluation: 09/12/18 Time of Evaluation: 16:30 - Subjective Subjective: Maikel Mendez, PGY-1, Internal Medicine Progress Note for Dr. Molina Patient was seen and evaluated at bedside. Patient was febrile overnight with Tmax of 102.6. Patient's O2 saturation reduced to 88%, and ABG was performed. Patient had dry, nonproductive cough overnight. Patient currently complains of cough with associated abdominal pain but now denies rib pain. In addition, she complains of nasal pain. Patient denies fever, nausea, vomiting, constipation, diarrhea, blood in stool, dysuria, hematuria. 12-point ROS was unremarkable except for what was mentioned above. This afternoon, patient continued to report abdominal pain with cough and was told that cepacol, tessalon perles, and robitussin have all been ordered for pain. Patient had nonformulary HIV medication brought to the hospital and medication was rec'ed and will now be given to patient daily. Objective - Vital Signs/Intake and Output Vital Signs (last 24 hours): Temp Pulse Resp BP Pulse Ox 100.3 F H 94 H 20 139/86 96 09/12/18 14:00 09/12/18 14:00 09/12/18 14:00 09/12/18 14:00 09/12/18 14:00 Intake and Output: 09/12/18 09/12/18 06:59 18:59 Intake Total 240 Balance 240 - Medications Medications: Current Medications Acetaminophen (Tylenol 325mg Tab) 650 mg PO Q6H PRN PRN Reason: Fever >100.4 F Last Admin: 09/12/18 05:26 Dose: 650 mg Acetaminophen (Tylenol 325mg Tab) 650 mg PO Q6H PRN PRN Reason: Pain, moderate (4-7) Last Admin: 09/11/18 23:08 Dose: 650 mg Albuterol/Ipratropium (Duoneb 3 Mg/0.5 Mg (3 Ml) Ud) 3 ml IH [id number] JESSICA Last Admin: 09/12/18 13:41 Dose: 3 ml Albuterol/Ipratropium (Duoneb 3 Mg/0.5 Mg (3 Ml) Ud) 3 ml IH Q2H PRN PRN Reason: Shortness of Breath Last Admin: 09/10/18 17:35 Dose: 3 ml Amlodipine Besylate (Norvasc) 10 mg PO DAILY [facility] Last Admin: 09/12/18 10:41 Dose: 10 mg Benzocaine/Menthol (Cepacol Sore Throat) 1 gutierrez MT Q2H PRN PRN Reason: Sore Throat Last Admin: 09/12/18 10:42 Dose: 1 gutierrez Benzonatate (Tessalon Perles) 100 mg PO TID [facility] Last Admin: 09/12/18 15:45 Dose: 100 mg Guaifenesin (Robitussin) 100 mg PO Q4H PRN PRN Reason: Cough Last Admin: 09/12/18 10:41 Dose: 100 mg Heparin Sodium (Porcine) (Heparin) 5,000 units SC Q8 [facility]; Protocol Last Admin: 09/12/18 13:33 Dose: 5,000 units Piperacillin Sod/Tazobactam Sod (Zosyn 3.375 In Ns 100ml) 100 mls @ 25 mls/hr IVPB Q8 [facility]; Protocol Last Admin: 09/12/18 13:34 Dose: 25 mls/hr Vancomycin HCl (Vancomycin 1gm) 1 gm in 250 mls @ 167 mls/hr IVPB DAILY [facility]; Protocol Last Admin: 09/12/18 16:10 Dose: 167 mls/hr Genvoya [Elvitegrav/Cobicis/Emtricita/Tenofov] 1 Tab (Home Med) 1 tab PO DAILY [facility] Last Admin: 09/12/18 16:21 Dose: 1 tab Pantoprazole Sodium (Protonix Ec Tab) 40 mg PO DAILY [facility] Last Admin: 09/12/18 10:42 Dose: 40 mg Trimethoprim/Sulfamethoxazole (Bactrim Ds Tab) 1 tab PO BID [facility]; Protocol Last Admin: 09/12/18 13:34 Dose: 1 tab - Labs Labs: 09/12/18 06:40 09/12/18 06:40 - Constitutional Appears: Well, Toxic, No Acute Distress - Head Exam Head Exam: ATRAUMATIC, NORMAL INSPECTION, NORMOCEPHALIC - Eye Exam Eye Exam: EOMI, PERRL - Neck Exam Neck exam: Positive for: Full Rom - Respiratory Exam Additional comments: crackles of bilateral lower lobe bases - Cardiovascular Exam Cardiovascular Exam: REGULAR RHYTHM, RRR - GI/Abdominal Exam GI & Abdominal Exam: Normal Bowel Sounds, Soft. absent: Tenderness - Extremities Exam Extremities exam: Positive for: normal inspection - Neurological Exam Neurological exam: Alert, CN II-XII Intact, Oriented x3 - Psychiatric Exam Psychiatric exam: Normal Affect, Normal Mood - Skin Skin Exam: Dry, Intact, Normal Color Assessment and Plan - Assessment and Plan (Free Text) Assessment: 58 year old female with past medical history of HIV, asthma, and hypertension presents with 2 month history of productive cough with green sputum, shortness of breath likely 2/2 to pneumonia. Chest X ray on 09/10 shows mild left lower lob e infiltrate and minimal right basilar atelectasis. Patient was febrile overnight and given tylenol, and O2 saturation decreased to 88%. Plan: Sepsis 2/2 Pneumonia vs. Bronchitis -CXR 09/10: left lower lobe infiltrate -Chest CT 09/12: right lower lobe mass 1.4x1.7, lower lobe atelectasis without discrete/focal infiltrate, lower airway disease/bronchitis -ABG 09/12: pH: 7.46, pO2: 57, pCO2: 31. Moderate hypoxia and hypocapnea -UA: moderate blood, negative LE and nitrate, 20-25 RBC, 0-2 WBC, 3-4 epithelial cells, moderate bacteria. Doubt UTI -Influenza negative -Blood culture: 09/10: negative for 2 days -Urine culture: pending -Sputum culture: pending -Procalcitonin: <0.05 -Lactate unremarkable. LDH unremarkable at 457 -Continue with bactrim and zosyn day 3 for suspected HCAP. Added vancomycin 1 gm daily today as per Dr. Perez. -Continue tylenol PRN for fever of more than 100.4 or for right sided rib pain -Patient no longer complains of rib pain but continues to complain of abdominal pain -Continue robitussin PRN, cepacol, and tessalon perles for cough. -If patient's O2 saturation desaturates again, will consider consulting Pulmonary. At this time, patient is in bed and comfortable. -ID, Dr. Perez, consulted for further recommendations Abdominal pain likely 2/2 to fatigued abdominal muscles vs. GERD -Patient counseled regarding taking all anti-cough medications including robitussin, cepacol, and tessalon perles -Protonix increased to 40 mg BID History of HIV -CD4 count unknown. Will follow up value from [facility] [place] -Continue with home genoya -Continue with therapeutic bactrim for PCP prophylaxis SAUL on CKD -Reported creatinine of 5 two months ago -Last documented creatinine of 1.4 -Creatinine on 09/12 was 1.6 -Continue NS at 100 cc/hr Asthma -Continue duonebs Q6 JESSICA and Q2PRN Hypertension -Blood pressure: 139/86 -Continue home amlodipine 10 mg daily Normocytic Anemia -Hgb: 11.5 from 10.3 -Will continue to monitor and evaluate. Possibly secondary to anemia of chronic disease from infection vs. iron deficiency anemia. GI prophylaxis: protonix 40 mg daily DVT prophylaxis: heparin 5000 U Q8 Patient plan discussed with attending. <Rafi Molina - Last Filed: 09/12/18 17:22> Objective - Vital Signs/Intake and Output Vital Signs (last 24 hours): Temp Pulse Resp BP Pulse Ox 100.3 F H 94 H 20 139/86 96 09/12/18 14:00 09/12/18 14:00 09/12/18 14:00 09/12/18 14:00 09/12/18 14:00 Intake and Output: 09/12/18 09/12/18 06:59 18:59 Intake Total 240 Balance 240 - Medications Medications: Current Medications Acetaminophen (Tylenol 325mg Tab) 650 mg PO Q6H PRN PRN Reason: Fever >100.4 F Last Admin: 09/12/18 05:26 Dose: 650 mg Acetaminophen (Tylenol 325mg Tab) 650 mg PO Q6H PRN PRN Reason: Pain, moderate (4-7) Last Admin: 09/11/18 23:08 Dose: 650 mg Albuterol/Ipratropium (Duoneb 3 Mg/0.5 Mg (3 Ml) Ud) 3 ml IH [id number] JESSICA Last Admin: 09/12/18 13:41 Dose: 3 ml Albuterol/Ipratropium (Duoneb 3 Mg/0.5 Mg (3 Ml) Ud) 3 ml IH Q2H PRN PRN Reason: Shortness of Breath Last Admin: 09/10/18 17:35 Dose: 3 ml Amlodipine Besylate (Norvasc) 10 mg PO DAILY [facility] Last Admin: 09/12/18 10:41 Dose: 10 mg Benzocaine/Menthol (Cepacol Sore Throat) 1 gutierrez MT Q2H PRN PRN Reason: Sore Throat Last Admin: 09/12/18 10:42 Dose: 1 gutierrez Benzonatate (Tessalon Perles) 100 mg PO TID [facility] Last Admin: 09/12/18 15:45 Dose: 100 mg Guaifenesin (Robitussin) 100 mg PO Q4H PRN PRN Reason: Cough Last Admin: 09/12/18 10:41 Dose: 100 mg Heparin Sodium (Porcine) (Heparin) 5,000 units SC Q8 [facility]; Protocol Last Admin: 09/12/18 13:33 Dose: 5,000 units Piperacillin Sod/Tazobactam Sod (Zosyn 3.375 In Ns 100ml) 100 mls @ 25 mls/hr IVPB Q8 [facility]; Protocol Last Admin: 09/12/18 13:34 Dose: 25 mls/hr Vancomycin HCl (Vancomycin 1gm) 1 gm in 250 mls @ 167 mls/hr IVPB DAILY [facility]; Protocol Last Admin: 09/12/18 16:10 Dose: 167 mls/hr Genvoya [Elvitegrav/Cobicis/Emtricita/Tenofov] 1 Tab (Home Med) 1 tab PO DAILY [facility] Last Admin: 09/12/18 16:21 Dose: 1 tab Pantoprazole Sodium (Protonix Ec Tab) 40 mg PO 0600,1600 [facility] Pantoprazole Sodium (Protonix Ec Tab) 40 mg PO ONCE ONE Stop: 09/13/18 16:40 Trimethoprim/Sulfamethoxazole (Bactrim Ds Tab) 1 tab PO BID [facility]; Protocol Last Admin: 09/12/18 13:34 Dose: 1 tab - Labs Labs: 09/12/18 06:40 09/12/18 06:40 Attending/Attestation - Attestation I have personally seen and examined this patient.: Yes I have fully participated in the care of the patient.: Yes I have reviewed all pertinent clinical information, including history, physical exam and plan: Yes Notes (Text): 09/12/18 17:20 58 year old female with past medical history of HIV, asthma and hypertension who presents with cough, fever and shortness of breath. Chest xray showed left lower lobe infiltrate on CXR. Continue with iv an tibiotics. Follow up on cultures. ID is following. Patient has fever overnight. CT chest was done today which showed right lower lobe mass (1.4 x 1.7 cm). Will ask IR to review tomorrow. Continue with iv fluids for mild acute on chronic renal failure. Continue with duonebs for mild intermittent asthma. Rafi Molina MD Hospitalist.
--- NOTE | 2018-09-12 16:47 | CT ---
Date of service: 09/12/2018 PROCEDURE: CT Chest without contrast HISTORY: pneumonia COMPARISON: None available. TECHNIQUE: Contiguous axial images were obtained through the chest without intravenous contrast enhancement. Sagittal and coronal reconstructions were performed. Radiation dose: Total exam DLP = 288.2 mGy-cm. This CT exam was performed using one or more of the following dose reduction techniques: Automated exposure control, adjustment of the mA and/or kV according to patient size, and/or use of iterative reconstruction technique. FINDINGS: LUNGS: Well-circumscribed solid pulmonary nodule/mass as ago esophageal recess right lower lobe. The mass measures 1.4 x 1.7 cm. Please refer to axial series 3/image 72 and coronal series 601/image 68. Mild bronchial thickening, linear atelectasis/scarring bibasilar distribution. MEDIASTINUM: Unremarkable thoracic aorta. No aneurysm. Normal sized heart. Main pulmonary artery unremarkable. No vascular congestion. Mediastinal lymphadenopathy, the largest lymph node 1.1 x 1.7 cm. No visible hilar adenopathy although the absence of intravenous contrast precludes meaningful assessment differentiating hilar lymph nodes structures from adjacent pulmonary arteries. No aortic atherosclerotic calcification. PLEURA: No pleural fluid. No pneumothorax. BONES: No fracture. No destructive lesion. UPPER ABDOMEN: Grossly unremarkable. OTHER FINDINGS: None. IMPRESSION: Right lower lobe mass 1.4 x 1.7 cm. Lower lobe atelectasis without discrete/focal infiltrate. Lower airway disease/bronchitis
--- NOTE | 2018-09-12 18:30 | CP.PCM.PN ---
Subjective - Date & Time of Evaluation Date of Evaluation: 09/12/18 Time of Evaluation: 16:45 - Subjective Subjective: Infectious Disease Follow Up: September 12, 2018 58 yo AA female with past medical history of HIV, asthma, and hypertension with [place] [facility] [place] presents with symptoms of fever, night sweats, body aches, sore throat, shortness of breath, productive cough with green sputum, and chest pain on the right side while coughing. Patient states symptoms started 2 months ago when patient was evaluated at [facility]. On another visit to [facility] ER 2 weeks ago, she was given a medrol dose pack which she did not complete. Patient then came to [facility] about a week ago, and she was admitted for p ersistent cold-like symptoms including sore throat, cough, chills, and runny nose but Chest X ray showed no acute disease. For this hospitalization, Chest X ray shows mild left lower lobe infiltrate and right bibasilar atelectasis. Patient did not think she had fevers but she has had heavy sweating. Patient continues to have productive cough with green sputum. She states having multiple episodes of non-bloody non-bilious vomitus. She started having Right sided rib burrell 2 weeks ago. Patient reports taking her home medications of Genoya (HAART) for HIV, bactrim for PCP prophylaxis, albuterol for asthma, and amlodipine for hypertension. The patient follows at the [facility] from [facility]. Will check the prior CD4 and HIV viral load there. Last values I can find are a CD4 of 180 in December 2017 and HIV Viral Load < 20. [facility] states patient has been compliant with HAART but was not able to confirm whether it was Genvoya or Stribild. A repeat CD4 and HIV Viral load should be performed here. The patient has no leukocytosis. Cultures negative to date. ON Bactrim and Zosyn for antibiotic coverage. Fevers up to 102.6 F in the past 24 hours. The patient was started with IV Vancomycin as well today. Objective - Vital Signs/Intake and Output Vital Signs (last 24 hours): Temp Pulse Resp BP Pulse Ox 100.3 F H 94 H 20 139/86 96 09/12/18 14:00 09/12/18 14:00 09/12/18 14:00 09/12/18 14:00 09/12/18 14:00 Intake and Output: 09/12/18 09/12/18 06:59 18:59 Intake Total 240 Balance 240 - Medications Medications: Current Medications Acetaminophen (Tylenol 325mg Tab) 650 mg PO Q6H PRN PRN Reason: Fever >100.4 F Last Admin: 09/12/18 05:26 Dose: 650 mg Acetaminophen (Tylenol 325mg Tab) 650 mg PO Q6H PRN PRN Reason: Pain, moderate (4-7) Last Admin: 09/11/18 23:08 Dose: 650 mg Albuterol/Ipratropium (Duoneb 3 Mg/0.5 Mg (3 Ml) Ud) 3 ml IH [id number] JESSICA Last Admin: 09/12/18 13:41 Dose: 3 ml Albuterol/Ipratropium (Duoneb 3 Mg/0.5 Mg (3 Ml) Ud) 3 ml IH Q2H PRN PRN Reason: Shortness of Breath Last Admin: 09/10/18 17:35 Dose: 3 ml Amlodipine Besylate (Norvasc) 10 mg PO DAILY [facility] Last Admin: 09/12/18 10:41 Dose: 10 mg Benzocaine/Menthol (Cepacol Sore Throat) 1 gutierrez MT Q2H PRN PRN Reason: Sore Throat Last Admin: 09/12/18 10:42 Dose: 1 gutierrez Benzonatate (Tessalon Perles) 100 mg PO TID [facility] Last Admin: 09/12/18 15:45 Dose: 100 mg Guaifenesin (Robitussin) 100 mg PO Q4H PRN PRN Reason: Cough Last Admin: 09/12/18 10:41 Dose: 100 mg Heparin Sodium (Porcine) (Heparin) 5,000 units SC Q8 JESSICA; Protocol Last Admin: 09/12/18 13:33 Dose: 5,000 units Piperacillin Sod/Tazobactam Sod (Zosyn 3.375 In Ns 100ml) 100 mls @ 25 mls/hr IVPB Q8 JESSICA; Protocol Last Admin: 09/12/18 13:34 Dose: 25 mls/hr Vancomycin HCl (Vancomycin 1gm) 1 gm in 250 mls @ 167 mls/hr IVPB DAILY JESSICA; Protocol Last Admin: 09/12/18 16:10 Dose: 167 mls/hr Genvoya [Elvitegrav/Cobicis/Emtricita/Tenofov] 1 Tab (Home Med) 1 tab PO DAILY JESSICA Last Admin: 09/12/18 16:21 Dose: 1 tab Pantoprazole Sodium (Protonix Ec Tab) 40 mg PO 0600,1600 JESSICA Pantoprazole Sodium (Protonix Ec Tab) 40 mg PO ONCE ONE Stop: 09/13/18 16:40 Trimethoprim/Sulfamethoxazole (Bactrim Ds Tab) 1 tab PO BID JESSICA; Protocol Last Admin: 09/12/18 13:34 Dose: 1 tab - Labs Labs: 09/12/18 06:40 09/12/18 06:40 - Constitutional Appears: Non-toxic, No Acute Distress, Chronically Ill - Head Exam Head Exam: ATRAUMATIC, NORMOCEPHALIC - Eye Exam Eye Exam: EOMI, PERRL Pupil Exam: NORMAL ACCOMODATION, PERRL - ENT Exam ENT Exam: Mucous Membranes Moist, Normal External Ear Exam, TM's Normal Bilaterally - Neck Exam Neck Exam: Full ROM, Normal Inspection - Respiratory Exam Respiratory Exam: Decreased Breath Sounds, Rhonchi. absent: Rales, Wheezes Additional comments: bilateral bases of lungs. - Cardiovascular Exam Cardiovascular Exam: REGULAR RHYTHM, RRR, +S1, +S2 - GI/Abdominal Exam GI & Abdominal Exam: Soft, Normal Bowel Sounds. absent: Distended, Tenderness - Extremities Exam Extremities Exam: Full ROM, Normal Inspection - Neurological Exam Neurological Exam: Alert, Awake, CN II-XII Intact, Oriented x3 - Psychiatric Exam Psychiatric exam: Normal Affect, Normal Mood - Skin Skin Exam: Intact, Normal Color Assessment and Plan - Assessment and Plan (Free Text) Assessment: 58 yo AA female with HIV with unknown CD4 and HIV Viral load who is on Bactrim normally. The patient states that she takes her HAART. LLL pneumonia as per Chest X-ray. Fevers up to 102.3 F overnight. Recheck HIV Viral Load and CD4 count. Will see into past numbers at [facility]... as of December 2017, HIV Viral load of <20 and CD4 of 180. Continue with IV ant ibiotics of Zosyn and Bactrim. With the persistent fevers, IV Vancomycin. CT scan here showing right lower lobe mass. Will see if there is a prior CT at [facility] and if there are prior findings. Bactrim dosing increased from preventative dosing to treatment dosing. IV Vancomycin started for treatment. Supportive care. No leukocytosis. Afebrile today. Cultures negative to date. Reculture at next fever spike. Thank you for allowing me to participate in the care of the patient, we will follow with you.
[2018-09-13] MEDS: Albuterol-Ipratrop 3 mg / 0.5 (3 ml) UD IH SCH ×4 (02:45→19:31)
[2018-09-13] MEDS: Piperacillin/Tazobact 3.375 gm 100 ML IVPB SCH ×3 (05:51→21:11)
[2018-09-13] MEDS: Pantoprazole 40 mg EC Tab PO SCH ×2 (06:24→18:18)
[2018-09-13 06:56] LABS: BASO # 0.01 K/mm3 (0.0-2.0); BASO % 0.2 % (0.0-3.0); HEMOGLOBIN 11.7 g/dL (12.0-16.0); LYMPH # 1.4 (1.2-3.4); MEAN CELL VOLUME 92.8 fl (80.0-105.0); MEAN CORPUSCULAR HEMOGLOBIN 31.2 pg (25.0-35.0); MEAN CORPUSCULAR HGB CONC 33.6 g/dl (31.0-37.0); MEAN PLATELET VOLUME 9.9 fl (7.0-11.0); MONO # 0.2 (0.1-0.6); MONO % 4.4 % (1.0-6.0); RBC 3.75 10^6/uL (3.5-6.1); RED CELL DISTRIBUTION WIDTH 13.8 % (11.5-14.5); WHITE BLOOD COUNT 4.5 10^3/uL (4.5-11.0)
[2018-09-13 07:24] LABS: ALB/GLOB RATIO 0.7 (1.1-1.8); ALBUMIN 3.5 g/dL (3.0-4.8); CALCIUM 8.4 mg/dL (8.4-10.5)
[2018-09-13] MEDS: GENVOYA PO SCH (11:02)
[2018-09-13] MEDS: guaiFENesin 100 mg/5 ml Syrup UD PO PRN ×2 (11:03→18:17)
[2018-09-13] MEDS: Tmp-Smz 800 mg-160 mg DS Tab PO SCH ×2 (11:03→18:18)
[2018-09-13] MEDS: Vancomycin 1gm in NS 250ml 1 GM/250 ML BAG IVPB SCH (11:04)
--- NOTE | 2018-09-13 11:07 | CP.PCM.PN ---
<Ross Guo - Last Filed: 09/13/18 16:05> Subjective - Date & Time of Evaluation Date of Evaluation: 09/13/18 Time of Evaluation: 11:07 - Subjective Subjective: PGY1 Medicine Progress Note for Dr. Molina Patient was seen and evaluated at bedside this morning. Patient complains of fever, pain, and difficulty breathing. Patient otherwise denies chest pain, headache, abdominal pain, nausea/vomiting, diarrhea. Patient tolerating breakfast (brought in by daughter). Objective - Vital Signs/Intake and Output Vital Signs (last 24 hours): Temp Pulse Resp BP Pulse Ox 97.3 F L 91 H 42 H 113/72 93 L 09/13/18 08:57 09/13/18 08:57 09/13/18 08:57 09/13/18 08:57 09/13/18 08:57 Intake and Output: 09/13/18 09/13/18 06:59 18:59 Intake Total 120 Balance 120 - Medications Medications: Current Medications Acetaminophen (Tylenol 325mg Tab) 650 mg PO Q6H PRN PRN Reason: Fever >100.4 F Last Admin: 09/13/18 06:28 Dose: 650 mg Acetaminophen (Tylenol 325mg Tab) 650 mg PO Q6H PRN PRN Reason: Pain, moderate (4-7) Last Admin: 09/11/18 23:08 Dose: 650 mg Albuterol/Ipratropium (Duoneb 3 Mg/0.5 Mg (3 Ml) Ud) 3 ml IH [id number] [facility] Last Admin: 09/13/18 07:35 Dose: 3 ml Albuterol/Ipratropium (Duoneb 3 Mg/0.5 Mg (3 Ml) Ud) 3 ml IH Q2H PRN PRN Reason: Shortness of Breath Last Admin: 09/10/18 17:35 Dose: 3 ml Amlodipine Besylate (Norvasc) 10 mg PO DAILY [facility] Last Admin: 09/12/18 10:41 Dose: 10 mg Benzocaine/Menthol (Cepacol Sore Throat) 1 gutierrez MT Q2H PRN PRN Reason: Sore Throat Last Admin: 09/12/18 10:42 Dose: 1 gutierrez Benzonatate (Tessalon Perles) 100 mg PO TID [facility] Last Admin: 09/12/18 18:47 Dose: 100 mg Guaifenesin (Robitussin) 100 mg PO Q4H PRN PRN Reason: Cough Last Admin: 09/12/18 18:47 Dose: 100 mg Heparin Sodium (Porcine) (Heparin) 5,000 units SC Q8 JESSICA; Protocol Last Admin: 09/13/18 05:49 Dose: 5,000 units Piperacillin Sod/Tazobactam Sod (Zosyn 3.375 In Ns 100ml) 100 mls @ 25 mls/hr IVPB Q8 JESSICA; Protocol Last Admin: 09/13/18 05:51 Dose: 25 mls/hr Vancomycin HCl (Vancomycin 1gm) 1 gm in 250 mls @ 167 mls/hr IVPB DAILY JESSICA; Protocol Last Admin: 09/12/18 16:10 Dose: 167 mls/hr Genvoya [Elvitegrav/Cobicis/Emtricita/Tenofov] 1 Tab (Home Med) 1 tab PO DAILY JESSICA Last Admin: 09/12/18 16:21 Dose: 1 tab Pantoprazole Sodium (Protonix Ec Tab) 40 mg PO 0600,1600 [facility] Last Admin: 09/13/18 06:24 Dose: 40 mg Pantoprazole Sodium (Protonix Ec Tab) 40 mg PO ONCE ONE Stop: 09/13/18 16:40 Trimethoprim/Sulfamethoxazole (Bactrim Ds Tab) 1 tab PO BID [facility]; Protocol Last Admin: 09/12/18 18:47 Dose: 1 tab - Labs Labs: 09/13/18 06:30 09/13/18 06:30 - Additional Findings Additional findings: - Constitutional Appears: Well, Toxic, No Acute Distress - Head Exam Head Exam: ATRAUMATIC, NORMAL INSPECTION, NORMOCEPHALIC - Eye Exam Eye Exam: EOMI, PERRL - Neck Exam Neck exam: Positive for: Full Rom - Respiratory Exam Additional comments: crackles of bilateral lower lobe bases - Cardiovascular Exam Cardiovascular Exam: REGULAR RHYTHM, RRR - GI/Abdominal Exam GI & Abdominal Exam: Normal Bowel Sounds, Soft. absent: Tenderness - Extremities Exam Extremities exam: Positive for: normal inspection - Neurological Exam Neurological exam: Alert, CN II-XII Intact, Oriented x3 - Psychiatric Exam Psychiatric exam: Normal Affect, Normal Mood - Skin Skin Exam: Dry, Intact, Normal Color Assessment and Plan - Assessment and Plan (Free Text) Assessment: Plan: Sepsis 2/2 Pneumonia vs. Bronchitis / R/O underlying metastatic process vs Lymphoma - CXR 09/10: left lower lobe infiltrate - Chest CT 09/12: right lower lobe mass 1.4x1.7, lower lobe atelectasis without discrete/focal infiltrate, lower airway disease/bronchitis * IR consulted for possible biopsy; recommendations appreciated * Pulmonology consulted; Dr. Ontiveros; recommendations appreciated * per patient, she had 27 pound weight loss in 6-8 week period * Recommends MRI with contrast to determine if the RLL mass is neurogenic or not * Proceed with CT guided biopsy if needed vs EBUS approach - ABG 09/12: pH: 7.46, pO2: 57, pCO2: 31. Moderate hypoxia and hypocapnea - UA: moderate blood, negative LE and nitrate, 20-25 RBC, 0-2 WBC, 3-4 epithelial cells, moderate bacteria. Doubt UTI - Influenza negative - Blood culture: 09/10: negative for 3 days - Pending Sputum culture - Procalcitonin: <0.05 - Lactate unremarkable. LDH unremarkable at 457 - Continue with bactrim and zosyn day 4 for suspected HCAP; vancomycin 1 gm daily as of 07/12/[address] Perez. - Continue tylenol PRN for fever of more than 100.4 or for right sided rib pain - Patient no longer complains of rib pain but continues to complain of abdominal pain - Continue robitussin PRN, cepacol, and tessalon perles for cough. - If patient's O2 saturation desaturates again, will consider consulting Pulmonary. At this time, patient is in bed and comfortable. - ID, Dr. Perez, consulted for further recommendations Abdominal pain likely 2/2 to fatigued abdominal muscles vs. GERD - Patient counseled regarding taking all anti-cough medications including robitussin, cepacol, and tessalon perles - Protonix increased to 40 mg BID History of HIV - CD4 count pending - Viral load pending - Continue with home genoya - Continue with therapeutic bactrim for PCP prophylaxis SAUL on CKD - Reported creatinine of 5 two months ago - Last documented creatinine of 1.4 - Creatinine on 09/13/18 1.7 - Discontinued: NS Asthma - Continue duonebs Q6 JESSICA and Q2PRN Hypertension - Blood pressure: 139/86 - Continue home amlodipine 10 mg daily Normocytic Anemia - Hgb: 11.7 from 11.5; stable - Will continue to monitor and evaluate. - Possibly secondary to anemia of chronic disease from infection vs iron deficiency anemia. GI prophylaxis: protonix 40 mg daily DVT prophylaxis: heparin 5000 U Q8 Patient plan discussed with Dr. Tracy Guo PGY1 <Rafi Molina - Last Filed: 09/13/18 18:32> Objective - Vital Signs/Intake and Output Vital Signs (last 24 hours): Temp Pulse Resp BP Pulse Ox 97.4 F L 90 20 110/63 92 L 09/13/18 14:00 09/13/18 14:00 09/13/18 14:00 09/13/18 14:00 09/13/18 14:00 Intake and Output: 09/13/18 09/13/18 06:59 18:59 Intake Total 120 300 Balance 120 300 - Medications Medications: Current Medications Acetaminophen (Tylenol 325mg Tab) 650 mg PO Q6H PRN PRN Reason: Fever >100.4 F Last Admin: 09/13/18 06:28 Dose: 650 mg Acetaminophen (Tylenol 325mg Tab) 650 mg PO Q6H PRN PRN Reason: Pain, moderate (4-7) Last Admin: 09/11/18 23:08 Dose: 650 mg Albuterol/Ipratropium (Duoneb 3 Mg/0.5 Mg (3 Ml) Ud) 3 ml IH [id number] [facility] Last Admin: 09/13/18 13:35 Dose: 3 ml Albuterol/Ipratropium (Duoneb 3 Mg/0.5 Mg (3 Ml) Ud) 3 ml IH Q2H PRN PRN Reason: Shortness of Breath Last Admin: 09/10/18 17:35 Dose: 3 ml Amlodipine Besylate (Norvasc) 10 mg PO DAILY [facility] Last Admin: 09/13/18 11:03 Dose: 10 mg Benzocaine/Menthol (Cepacol Sore Throat) 1 gutierrez MT Q2H PRN PRN Reason: Sore Throat Last Admin: 09/12/18 10:42 Dose: 1 gutierrez Benzonatate (Tessalon Perles) 100 mg PO TID [facility] Last Admin: 09/13/18 18:18 Dose: 100 mg Guaifenesin (Robitussin) 100 mg PO Q4H PRN PRN Reason: Cough Last Admin: 09/13/18 18:17 Dose: 100 mg Heparin Sodium (Porcine) (Heparin) 5,000 units SC Q8 JESSICA; Protocol Last Admin: 09/13/18 14:24 Dose: 5,000 units Piperacillin Sod/Tazobactam Sod (Zosyn 3.375 In Ns 100ml) 100 mls @ 25 mls/hr IVPB Q8 JESSICA; Protocol Last Admin: 09/13/18 14:24 Dose: 25 mls/hr Vancomycin HCl (Vancomycin 1gm) 1 gm in 250 mls @ 167 mls/hr IVPB DAILY JESSICA; Protocol Last Admin: 09/13/18 11:04 Dose: 167 mls/hr Nicotine (Nicoderm Cq) 1 patch TD DAILY JESSICA Last Admin: 09/13/18 18:16 Dose: 1 patch Genvoya [Elvitegrav/Cobicis/Emtricita/Tenofov] 1 Tab (Home Med) 1 tab PO DAILY JESSICA Last Admin: 09/13/18 11:02 Dose: 1 tab Pantoprazole Sodium (Protonix Ec Tab) 40 mg PO 0600,1600 [facility] Last Admin: 09/13/18 18:18 Dose: 40 mg Trimethoprim/Sulfamethoxazole (Bactrim Ds Tab) 1 tab PO BID JESSICA; Protocol Last Admin: 09/13/18 18:18 Dose: 1 tab - Labs Labs: 09/13/18 06:30 09/13/18 06:30 Attending/Attestation - Attestation I have personally seen and examined this patient.: Yes I have fully participated in the care of the patient.: Yes I have reviewed all pertinent clinical information, including history, physical exam and plan: Yes Notes (Text): 09/13/18 18:29 58 year old female with past medical history of HIV, asthma and hypertension who presents with cough, fever and shortness of breath. Chest xray showed left lower lobe infiltrate on CXR. Continue with iv antibiotics. Cultures are negative to date. ID is following. CT chest showed right lower lobe mass (1.4 x 1.7 cm). Pulmonary evaluation was appreciated; recommended further evaluation with MRI. This can then be further followed up with CT biopsy vs EBUS if needed. IR input was also requested. Above CT chest finding was discussed with patient and daughter at bedside. Continue with iv fluids for mild acute on chronic renal failure. Continue with duonebs for mild intermittent asthma. Rafi Molina MD Hospitalist.
--- NOTE | 2018-09-13 15:41 | CP.PCM.CON ---
History of Present Illness - History of Present Illness History of Present Illness: Pulmonary Consult Reason: Evaluation for pulmonary nodule seen on CT 58Fsmoker with HIV, asthma, and hypertension admitted for fever, night sweats, sob and cough found to have a RLL nodule and mediastinal LN. She has been having the symptoms for 2 months now and was seen at [facility] twice and tx for PNA. On this admission she had similar symptoms and is now being treated with broad spectrum abx. She says her cough and night sweats are improving however cough is still present and productive. Of note, CD4 of 180 in December 2017 and HIV Viral Load < 20. She is on HAART and bactrim ppx. No recent travel, no sick contacts. She has been smoking for 30 years but says it is usually less than 1 pack per day. She endorses 27 pound weight loss over the last 6-8 weeks which is unintentional. She has poor appetite. CT chest was done today which shows right lower lobe nodule (1.4 x 1.7 cm) as well as mediastinal lymphadenopathy. Patient denied abdominal pain, constipation, diarrhea, dysuria, hematuria. 12- point ROS was unremarkable except for what was mentioned above. PMH: Asthma, HIV / AIDS , hypertension PSH: Umbilical hernia repair - as a child All: Fruits FMHx: noncontributary SHx: smoke > 30 years , drinks coors light beer on weekends, denies recreational drugs however last UDS was positive for cocaine on prior admission 5 days ago Past Patient History - Infectious Disease Hx of Infectious Diseases: None - Past Social History Smoking Status: Light Smoker < 10 Cigarettes Daily - CARDIAC Hx Cardiac Disorders: Yes Hx Hypertension: Yes - PULMONARY Hx Respiratory Disorders: Yes (has nebulizer machine at home) Hx Asthma: Yes Other/Comment: asthma as an adult bronchial asthma as a child - NEUROLOGICAL Hx Neurological Disorder: No - HEENT Hx HEENT Problems: Yes Other/Comment: pt had gland surgery 6 yrs ago due to swelling below [place] [facility] [place], glands were swollen and needed to e removed, had 6 surgeries in 6 months left pt with swelling and scars, pt went to [facility] but problem was unable to be corrected - RENAL Hx Chronic Kidney Disease: No - ENDOCRINE/METABOLIC Hx Endocrine Disorders: No - HEMATOLOGICAL/ONCOLOGICAL Hx Blood Disorders: Yes - INTEGUMENTARY Hx Dermatological Problems: Yes Other/Comment: scarring under posterior b/l jaw and front of both ears and swelling - MUSCULOSKELETAL/RHEUMATOLOGICAL Hx Musculoskeletal Disorders: Yes Hx Falls: No Hx Unsteady Gait: Yes - GASTROINTESTINAL Hx Gastrointestinal Disorders: No - GENITOURINARY/GYNECOLOGICAL Hx Genitourinary Disorders: No - PSYCHIATRIC Hx Psychophysiologic Disorder: No Hx Substance Use: No - SURGICAL HISTORY Other/Comment: b/l gland sx under posterior jaw and fron of both ears, umbilical hernia sx age 10 - ANESTHESIA Hx Anesthesia: Yes Hx Anesthesia Reactions: No Hx Malignant Hyperthermia: No Meds Allergies/Adverse Reactions: Allergies Allergy/AdvReac Type Severity Reaction Status Date / Time fruits Allergy RASH Uncoded 09/10/18 19:53 - Medications Medications: Current Medications Acetaminophen (Tylenol 325mg Tab) 650 mg PO Q6H PRN PRN Reason: Fever >100.4 F Last Admin: 09/13/18 06:28 Dose: 650 mg Acetaminophen (Tylenol 325mg Tab) 650 mg PO Q6H PRN PRN Reason: Pain, moderate (4-7) Last Admin: 09/11/18 23:08 Dose: 650 mg Albuterol/Ipratropium (Duoneb 3 Mg/0.5 Mg (3 Ml) Ud) 3 ml IH [id number] [facility] Last Admin: 09/13/18 13:35 Dose: 3 ml Albuterol/Ipratropium (Duoneb 3 Mg/0.5 Mg (3 Ml) Ud) 3 ml IH Q2H PRN PRN Reason: Shortness of Breath Last Admin: 09/10/18 17:35 Dose: 3 ml Amlodipine Besylate (Norvasc) 10 mg PO DAILY [facility] Last Admin: 09/13/18 11:03 Dose: 10 mg Benzocaine/Menthol (Cepacol Sore Throat) 1 gutierrez MT Q2H PRN PRN Reason: Sore Throat Last Admin: 09/12/18 10:42 Dose: 1 gutierrez Benzonatate (Tessalon Perles) 100 mg PO TID [facility] Last Admin: 09/13/18 14:25 Dose: 100 mg Guaifenesin (Robitussin) 100 mg PO Q4H PRN PRN Reason: Cough Last Admin: 09/13/18 11:03 Dose: 100 mg Heparin Sodium (Porcine) (Heparin) 5,000 units SC Q8 [facility]; Protocol Last Admin: 09/13/18 14:24 Dose: 5,000 units Piperacillin Sod/Tazobactam Sod (Zosyn 3.375 In Ns 100ml) 100 mls @ 25 mls/hr IVPB Q8 JESSICA; Protocol Last Admin: 09/13/18 14:24 Dose: 25 mls/hr Vancomycin HCl (Vancomycin 1gm) 1 gm in 250 mls @ 167 mls/hr IVPB DAILY JESSICA; Protocol Last Admin: 09/13/18 11:04 Dose: 167 mls/hr Genvoya [Elvitegrav/Cobicis/Emtricita/Tenofov] 1 Tab (Home Med) 1 tab PO DAILY JESSICA Last Admin: 09/13/18 11:02 Dose: 1 tab Pantoprazole Sodium (Protonix Ec Tab) 40 mg PO 0600,1600 JESSICA Last Admin: 09/13/18 06:24 Dose: 40 mg Pantoprazole Sodium (Protonix Ec Tab) 40 mg PO ONCE ONE Stop: 09/13/18 16:40 Trimethoprim/Sulfamethoxazole (Bactrim Ds Tab) 1 tab PO BID JESSICA; Protocol Last Admin: 09/13/18 11:03 Dose: 1 tab Physical Exam - Constitutional Appears: Older Than Stated Age, Chronically Ill - Head Exam Head Exam: ATRAUMATIC, NORMAL INSPECTION, NORMOCEPHALIC - Neck Exam Neck exam: Positive for: Normal Inspection - Respiratory Exam Respiratory Exam: Prolonged Expiratory Phase, Wheezes. absent: Respiratory Distress - Cardiovascular Exam Cardiovascular Exam: REGULAR RHYTHM - GI/Abdominal Exam GI & Abdominal Exam: Normal Bowel Sounds, Soft. absent: Tenderness Results - Vital Signs Recent Vital Signs: Last Vital Signs Temp 97.4 F L 09/13/18 14:00 Pulse 90 09/13/18 14:00 Resp 20 09/13/18 14:00 BP 110/63 09/13/18 14:00 Pulse Ox 92 L 09/13/18 14:00 - Labs Result Diagrams: 09/13/18 06:30 09/13/18 06:30 Labs: Laboratory Results - last 24 hr 09/13/18 09/13/18 09/13/18 06:30 06:30 06:30 WBC 4.5 RBC 3.75 Hgb 11.7 L Hct 34.8 L MCV 92.8 MCH 31.2 MCHC 33.6 RDW 13.8 Plt Count 203 MPV 9.9 Neut % (Auto) 64.4 Lymph % (Auto) 31.0 [place] % (Auto) 4.4 Eos % (Auto) 0.0 L Baso % (Auto) 0.2 Lymph # (Auto) 1.4 [place] # (Auto) 0.2 Eos # (Auto) 0.0 Baso # (Auto) 0.01 Absolute Neuts (auto) 2.90 Sodium 135 Potassium 4.4 Chloride 105 Carbon Dioxide 23 Anion Gap 11 BUN 18 Creatinine 1.7 H Est GFR ( Amer) 37 Est GFR (Non-Af Amer) 31 Random Glucose 102 Calcium 8.4 Phosphorus 4.3 Magnesium 1.8 Total Bilirubin 0.4 AST 48 H ALT 11 Alkaline Phosphatase 70 Total Protein 8.8 H Albumin 3.5 Globulin 5.3 Albumin/Globulin Ratio 0.7 L Assessment & Plan - Assessment and Plan (Free Text) Assessment: 58F smoker with HIV/AIDS on HAART admitted for 2 months of productive cough, sob ,fevers and night sweat being tx with broad spectrum abx for PNA. CT Scan shows right lower lobe nodule (not mass) 1.4 x 1.7 cm round well circumscribed. This appears to be in the posterior mediastinum. Most common ca use of posterior mediastinal nodule are benign neurogenic tumors such as ganglioneuroma, neurofibroma and rarely schwanoma. However, most alarming is her reported 27 pound weight loss over 6-8week which raises concern for cancer. It is unclear if her mediastinal LN is related to the nodule implying a metastatic process or this is unrelated. During acute infection mediastinal LN can be enlarged however AIDS paitient's are at risk for lymphoma as well. Her smoking history also puts her at risk for cancer. Overall, we must rule out malignancy and there are several options. The most non-invasive approach would be to get an MRI with contrast to determine if the RLL mass is neurogenic or not. Then proceed with CT guided biopsy if necessary. Another approach would be EBUS to sample the mediastinum. Will discuss with IR and take a multidisiplinary approach to evaluating this patient's CT findings. Benito Ontiveros MD Pulmonary Critical Care Sleep Medicine
[2018-09-13] MEDS ORDERED: Pantoprazole 40 mg EC Tab PO ONE (16:39)
--- NOTE | 2018-09-13 18:16 | CP.PCM.PN ---
Subjective - Date & Time of Evaluation Date of Evaluation: 09/13/18 Time of Evaluation: 17:00 - Subjective Subjective: Infectious Disease Follow Up: September 13, 2018 58 yo AA female with past medical history of HIV, asthma, and hypertension with recent visit to [facility] on 09/05 presents with symptoms of fever, night sweats, body aches, sore throat, shortness of breath, productive cough with green sputum, and chest pain on the right side while coughing. Patient states symptoms started 2 months ago when patient was evaluated at [facility] [place]. On another visit to [facility] ER 2 weeks ago, she was given a medrol dose pack which she did not complete. Patient then came to [facility] about a week ago, and she was admitted for p ersistent cold-like symptoms including sore throat, cough, chills, and runny nose but Chest X ray showed no acute disease. For this hospitalization, Chest X ray shows mild left lower lobe infiltrate and right bibasilar atelectasis. Patient did not think she had fevers but she has had heavy sweating. Patient continues to have productive cough with green sputum. She states having multiple episodes of non-bloody non-bilious vomitus. She started having Right sided rib burrell 2 weeks ago. Patient reports taking her home medications of Genoya (HAART) for HIV, bactrim for PCP prophylaxis, albuterol for asthma, and amlodipine for hypertension. The patient follows at the [facility] from [facility]. Will check the prior CD4 and HIV viral load there. Last values I can find are a CD4 of 180 in December 2017 and HIV Viral Load < 20. [facility] states patient has been compliant with HAART but was not able to confirm whether it was Genvoya or Stribild. A repeat CD4 and HIV Viral load should be performed here. The patient has no leukocytosis. Cultures negative to date. ON Bactrim and Zosyn for antibiotic coverage. Fevers up to 102.6 F in the past 48 hours and 100.7 F in the past 24 hours. The patient was started with IV Vancomycin as well today. There is a CT scan from [facility] of the Abd/Pel not the Chest. The CT visualized a small portion of the lower lobes of the lungs where a mass was not seen in what was visualized... unclear if the [facility] CT scan visualized the same affected area as the CT done here. Objective - Vital Signs/Intake and Output Vital Signs (last 24 hours): Temp Pulse Resp BP Pulse Ox 97.4 F L 90 20 110/63 92 L 09/13/18 14:00 09/13/18 14:00 09/13/18 14:00 09/13/18 14:00 09/13/18 14:00 Intake and Output: 09/13/18 09/13/18 06:59 18:59 Intake Total 120 300 Balance 120 300 - Medications Medications: Current Medications Acetaminophen (Tylenol 325mg Tab) 650 mg PO Q6H PRN PRN Reason: Fever >100.4 F Last Admin: 09/13/18 06:28 Dose: 650 mg Acetaminophen (Tylenol 325mg Tab) 650 mg PO Q6H PRN PRN Reason: Pain, moderate (4-7) Last Admin: 09/11/18 23:08 Dose: 650 mg Albuterol/Ipratropium (Duoneb 3 Mg/0.5 Mg (3 Ml) Ud) 3 ml IH [id number] [facility] Last Admin: 09/13/18 13:35 Dose: 3 ml Albuterol/Ipratropium (Duoneb 3 Mg/0.5 Mg (3 Ml) Ud) 3 ml IH Q2H PRN PRN Reason: Shortness of Breath Last Admin: 09/10/18 17:35 Dose: 3 ml Amlodipine Besylate (Norvasc) 10 mg PO DAILY [facility] Last Admin: 09/13/18 11:03 Dose: 10 mg Benzocaine/Menthol (Cepacol Sore Throat) 1 gutierrez MT Q2H PRN PRN Reason: Sore Throat Last Admin: 09/12/18 10:42 Dose: 1 gutierrez Benzonatate (Tessalon Perles) 100 mg PO TID [facility] Last Admin: 09/13/18 14:25 Dose: 100 mg Guaifenesin (Robitussin) 100 mg PO Q4H PRN PRN Reason: Cough Last Admin: 09/13/18 11:03 Dose: 100 mg Heparin Sodium (Porcine) (Heparin) 5,000 units SC Q8 [facility]; Protocol Last Admin: 09/13/18 14:24 Dose: 5,000 units Piperacillin Sod/Tazobactam Sod (Zosyn 3.375 In Ns 100ml) 100 mls @ 25 mls/hr IVPB Q8 [facility]; Protocol Last Admin: 09/13/18 14:24 Dose: 25 mls/hr Vancomycin HCl (Vancomycin 1gm) 1 gm in 250 mls @ 167 mls/hr IVPB DAILY [facility]; Protocol Last Admin: 09/13/18 11:04 Dose: 167 mls/hr Nicotine (Nicoderm Cq) 1 patch TD DAILY [facility] Genvoya [Elvitegrav/Cobicis/Emtricita/Tenofov] 1 Tab (Home Med) 1 tab PO DAILY [facility] Last Admin: 09/13/18 11:02 Dose: 1 tab Pantoprazole Sodium (Protonix Ec Tab) 40 mg PO 0600,1600 [facility] Last Admin: 09/13/18 06:24 Dose: 40 mg Trimethoprim/Sulfamethoxazole (Bactrim Ds Tab) 1 tab PO BID [facility]; Protocol Last Admin: 09/13/18 11:03 Dose: 1 tab - Labs Labs: 09/13/18 06:30 09/13/18 06:30 - Constitutional Appears: Non-toxic, No Acute Distress, Chronically Ill - Head Exam Head Exam: ATRAUMATIC, NORMOCEPHALIC - Eye Exam Eye Exam: EOMI, PERRL Pupil Exam: NORMAL ACCOMODATION, PERRL - ENT Exam ENT Exam: Mucous Membranes Moist, Normal External Ear Exam, TM's Normal Bilaterally - Neck Exam Neck Exam: Full ROM, Normal Inspection - Respiratory Exam Respiratory Exam: Decreased Breath Sounds, Rhonchi, NORMAL BREATHING PATTERN. absent: Rales, Wheezes Additional comments: bilateral bases of lungs. - Cardiovascular Exam Cardiovascular Exam: REGULAR RHYTHM, RRR, +S1, +S2 - GI/Abdominal Exam GI & Abdominal Exam: Soft, Normal Bowel Sounds. absent: Distended, Tenderness - Extremities Exam Extremities Exam: Full ROM, Normal Inspection - Neurological Exam Neurological Exam: Alert, Awake, CN II-XII Intact, Oriented x3 - Psychiatric Exam Psychiatric exam: Normal Affect, Normal Mood - Skin Skin Exam: Intact, Normal Color Assessment and Plan - Assessment and Plan (Free Text) Assessment: 58 yo AA female with HIV with unknown CD4 and HIV Viral load who is on Bactrim normally. The patient states that she takes her HAART. LLL pneumonia as per Chest X-ray. Fevers up to 102.3 F overnight. Recheck HIV Viral Load and CD4 count. Will see into past numbers at [facility] and [facility]... as of December 2017, HIV Viral load of <20 and CD4 of 180. Continue with IV antibiotics of Zosyn and Bactrim. With the persistent fevers, IV Vancomycin. CT scan here showing right lower lobe mass. Will see if there is a prior CT at [facility] and if there are prior findings. No direct comparison to a similar CT Chest available. A CT of the Abd/Pelvis visualizes a small portion of the lower lobes of the lung where no mass or structure was seen. Bactrim dosing increased from preventative dosing to treatment dosing. IV Vancomycin started for treatment. Supportive care. No leukocytosis. Fevers up to 100.7 F in the past 24 hours. Cultures negative to date. Reculture at next fever spike. Pulmonology evaluated the patient and suggested to start with MRI. Must rule out malignancy. Patient now states a 27 lbs weight loss within the past 2 months. Thank you for allowing me to participate in the care of the patient, we will follow with you.
--- NOTE | 2018-09-13 20:30 | PN ---
DATE: 09/13/2018 SUBJECTIVE: I reviewed Ms. Floyd' CT scan of the chest. There is a 2 cm nodule in the right lower lobe medially. It is located in a difficult position for CT biopsy between the spine and posterior heart. Follow-up is recommended. If suspicion of neoplasm is high, a PET scan can be considered. I am not planning on a CT-guided biopsy of this lesion at this time. Jaime Ramos MD MTDD
[2018-09-14] MEDS: Albuterol-Ipratrop 3 mg / 0.5 (3 ml) UD IH SCH ×4 (01:14→19:25)
[2018-09-14] MEDS: Piperacillin/Tazobact 3.375 gm 100 ML IVPB SCH ×3 (05:30→22:43)
[2018-09-14] MEDS: Pantoprazole 40 mg EC Tab PO SCH ×2 (07:06→18:22)
[2018-09-14 07:42] LABS: % CD4 (T HELPER CELL) 9 Percent (30-61); % CD8 (SUPPRESSOR T CELL) 76 Percent (12-42); ABSOLUTE CD4 CELLS 89 Cells/mcL (490-1740); ABSOLUTE CD8 CELLS 786 Cells/mcL (180-1170); ABSOLUTE LYMPHOCYTES 1032 Cells/mcL (850-3900); HELPER/SUPPRESSOR RATIO 0.11 Ratio (0.86-5.00)
[2018-09-14] MEDS: Tmp-Smz 800 mg-160 mg DS Tab PO SCH ×2 (09:48→18:22)
[2018-09-14] MEDS: Vancomycin 1gm in NS 250ml 1 GM/250 ML BAG IVPB SCH (09:50)
[2018-09-14] MEDS: GENVOYA PO SCH (10:01)
[2018-09-14] MEDS: guaiFENesin-DM 600-30 mg ER Tab PO SCH ×2 (11:53→23:00)
--- NOTE | 2018-09-14 13:12 | CP.PCM.PN ---
<Ross Guo - Last Filed: 09/14/18 16:43> Subjective - Date & Time of Evaluation Date of Evaluation: 09/14/18 Time of Evaluation: 13:12 - Subjective Subjective: PGY1 Medicine Progress Note for Dr. Molina Patient was seen and evaluated at bedside this morning. Patient complains of fever, pain, and difficulty breathing. Patient otherwise denies chest pain, headache, abdominal pain, nausea/vomiting, diarrhea. Patient tolerating breakfast Objective - Vital Signs/Intake and Output Vital Signs (last 24 hours): Temp Pulse Resp BP Pulse Ox 98.3 F 83 18 110/68 95 09/14/18 06:00 09/14/18 06:00 09/14/18 06:00 09/14/18 09:48 09/14/18 06:00 Intake and Output: 09/14/18 09/14/18 06:59 18:59 Intake Total 540 Balance 540 - Medications Medications: Current Medications Acetaminophen (Tylenol 325mg Tab) 650 mg PO Q6H PRN PRN Reason: Fever >100.4 F Last Admin: 09/13/18 06:28 Dose: 650 mg Acetaminophen (Tylenol 325mg Tab) 650 mg PO Q6H PRN PRN Reason: Pain, moderate (4-7) Last Admin: 09/11/18 23:08 Dose: 650 mg Albuterol/Ipratropium (Duoneb 3 Mg/0.5 Mg (3 Ml) Ud) 3 ml IH [id number] [facility] Last Admin: 09/14/18 07:58 Dose: 3 ml Albuterol/Ipratropium (Duoneb 3 Mg/0.5 Mg (3 Ml) Ud) 3 ml IH Q2H PRN PRN Reason: Shortness of Breath Last Admin: 09/10/18 17:35 Dose: 3 ml Amlodipine Besylate (Norvasc) 10 mg PO DAILY [facility] Last Admin: 09/14/18 09:48 Dose: 10 mg Benzocaine/Menthol (Cepacol Sore Throat) 1 gutierrez MT Q2H PRN PRN Reason: Sore Throat Last Admin: 09/12/18 10:42 Dose: 1 gutierrez Benzonatate (Tessalon Perles) 100 mg PO TID [facility] Last Admin: 09/14/18 09:48 Dose: 100 mg Guaifenesin (Robitussin) 100 mg PO Q4H PRN PRN Reason: Cough Last Admin: 09/13/18 18:17 Dose: 100 mg Guaifenesin/Dextromethorphan (Mucinex-Dm 600-30 Mg) 1 tab PO BID [facility] Last Admin: 09/14/18 11:53 Dose: 1 tab Heparin Sodium (Porcine) (Heparin) 5,000 units SC Q8 [facility]; Protocol Last Admin: 09/14/18 05:29 Dose: 5,000 units Piperacillin Sod/Tazobactam Sod (Zosyn 3.375 In Ns 100ml) 100 mls @ 25 mls/hr IVPB Q8 [facility]; Protocol Last Admin: 09/14/18 05:30 Dose: 25 mls/hr Vancomycin HCl (Vancomycin 1gm) 1 gm in 250 mls @ 167 mls/hr IVPB DAILY [facility]; Protocol Last Admin: 09/14/18 09:50 Dose: 167 mls/hr Nicotine (Nicoderm Cq) 1 patch TD DAILY [facility] Last Admin: 09/14/18 09:49 Dose: 1 patch Genvoya [Elvitegrav/Cobicis/Emtricita/Tenofov] 1 Tab (Home Med) 1 tab PO DAILY [facility] Last Admin: 09/14/18 10:01 Dose: 1 tab Pantoprazole Sodium (Protonix Ec Tab) 40 mg PO 0600,1600 [facility] Last Admin: 09/14/18 07:06 Dose: 40 mg Trimethoprim/Sulfamethoxazole (Bactrim Ds Tab) 1 tab PO BID [facility]; Protocol Last Admin: 09/14/18 09:48 Dose: 1 tab - Labs Labs: 09/13/18 06:30 09/13/18 06:30 - Additional Findings Additional findings: - Constitutional Appears: Well, Toxic, No Acute Distress - Head Exam Head Exam: ATRAUMATIC, NORMAL INSPECTION, NORMOCEPHALIC - Eye Exam Eye Exam: EOMI, PERRL - Neck Exam Neck exam: Positive for: Full Rom - Respiratory Exam Additional comments: crackles of bilateral lower lobe bases - Cardiovascular Exam Cardiovascular Exam: REGULAR RHYTHM, RRR - GI/Abdominal Exam GI & Abdominal Exam: Normal Bowel Sounds, Soft. absent: Tenderness - Extremities Exam Extremities exam: Positive for: normal inspection - Neurological Exam Neurological exam: Alert, CN II-XII Intact, Oriented x3 - Psychiatric Exam Psychiatric exam: Normal Affect, Normal Mood - Skin Skin Exam: Dry, Intact, Normal Color Assessment and Plan - Assessment and Plan (Free Text) Assessment: Sepsis 2/2 Pneumonia vs. Bronchitis / R/O underlying metastatic process vs Lymphoma - CXR 09/10: left lower lobe infiltrate - Chest CT 09/12: right lower lobe mass 1.4 x 1.7, lower lobe atelectasis without discrete/focal infiltrate, lower airway disease/bronchitis * IR consulted for possible biopsy; recommendations appreciated * Pulmonology consulted; Dr. Ontiveros; recommendations appreciated * per patient, she had 27 pound weight loss in 6-8 week period * MRI with contrast of chest to determine if the RLL mass is neurogenic or not * Proceed with CT guided biopsy if needed vs EBUS approach - ABG 09/12: pH: 7.46, pO2: 57, pCO2: 31. Moderate hypoxia and hypocapnea - UA: moderate blood, negative LE and nitrate, 20-25 RBC, 0-2 WBC, 3-4 epithelial cells, moderate bacteria. Doubt UTI - Influenza negative - Blood culture: 09/10: negative - Pending Sputum culture - Procalcitonin: < 0.05 - Lactate unremarkable. LDH unremarkable at 457 - Continue with bactrim and zosyn day 4 for suspected HCAP; vancomycin 1 gm daily as of 07/12/[address] Perez. - Continue tylenol PRN for fever of more than 100.4 or for right sided rib pain - Patient no longer complains of rib pain but continues to complain of abdominal pain - Continue robitussin PRN, cepacol, and tessalon perles for cough. - If patient's O2 saturation desaturates again, will consider consulting Pulmonary. At this time, patient is in bed and comfortable. - ID, Dr. Perez, consulted for further recommendations Abdominal pain likely 2/2 to fatigued abdominal muscles vs. GERD - Patient counseled regarding taking all anti-cough medications including robitussin, cepacol, and tessalon perles - Protonix increased to 40 mg BID History of HIV - CD4 count 89 - Viral load high - Continue with home genoya - Continue with therapeutic bactrim for PCP prophylaxis SAUL on CKD - Reported creatinine of 5 two months ago - Last documented creatinine of 1.5 - Discontinued: NS Asthma - Continue duonebs Q6 [facility] and Q2PRN Hypertension - Currently normotensive - Continue home amlodipine 10 mg daily Normocytic Anemia - Hgb stable - Will continue to monitor and evaluate. - Possibly secondary to anemia of chronic disease from infection vs iron deficiency anemia. GI prophylaxis: protonix 40 mg daily DVT prophylaxis: heparin 5000 U Q8 Patient plan discussed with Dr. Tracy Guo <Rafi Molina - Last Filed: 09/14/18 17:29> Objective - Vital Signs/Intake and Output Vital Signs (last 24 hours): Temp Pulse Resp BP Pulse Ox 97.5 F L 81 20 128/70 93 L 09/14/18 14:00 09/14/18 14:00 09/14/18 14:00 09/14/18 14:00 09/14/18 14:00 Intake and Output: 09/14/18 09/14/18 06:59 18:59 Intake Total 540 Balance 540 - Medications Medications: Current Medications Acetaminophen (Tylenol 325mg Tab) 650 mg PO Q6H PRN PRN Reason: Fever >100.4 F Last Admin: 09/13/18 06:28 Dose: 650 mg Acetaminophen (Tylenol 325mg Tab) 650 mg PO Q6H PRN PRN Reason: Pain, moderate (4-7) Last Admin: 09/11/18 23:08 Dose: 650 mg Albuterol/Ipratropium (Duoneb 3 Mg/0.5 Mg (3 Ml) Ud) 3 ml IH [id number] [facility] Last Admin: 09/14/18 14:28 Dose: 3 ml Albuterol/Ipratropium (Duoneb 3 Mg/0.5 Mg (3 Ml) Ud) 3 ml IH Q2H PRN PRN Reason: Shortness of Breath Last Admin: 09/10/18 17:35 Dose: 3 ml Amlodipine Besylate (Norvasc) 10 mg PO DAILY [facility] Last Admin: 09/14/18 09:48 Dose: 10 mg Benzocaine/Menthol (Cepacol Sore Throat) 1 gutierrez MT Q2H PRN PRN Reason: Sore Throat Last Admin: 09/12/18 10:42 Dose: 1 gutierrez Benzonatate (Tessalon Perles) 100 mg PO TID [facility] Last Admin: 09/14/18 14:06 Dose: 100 mg Guaifenesin (Robitussin) 100 mg PO Q4H PRN PRN Reason: Cough Last Admin: 09/13/18 18:17 Dose: 100 mg Guaifenesin/Dextromethorphan (Mucinex-Dm 600-30 Mg) 1 tab PO BID [facility] Last Admin: 09/14/18 11:53 Dose: 1 tab Heparin Sodium (Porcine) (Heparin) 5,000 units SC Q8 [facility]; Protocol Last Admin: 09/14/18 14:05 Dose: 5,000 units Piperacillin Sod/Tazobactam Sod (Zosyn 3.375 In Ns 100ml) 100 mls @ 25 mls/hr IVPB Q8 [facility]; Protocol Last Admin: 09/14/18 14:06 Dose: 25 mls/hr Vancomycin HCl (Vancomycin 1gm) 1 gm in 250 mls @ 167 mls/hr IVPB DAILY [facility]; Protocol Last Admin: 09/14/18 09:50 Dose: 167 mls/hr Nicotine (Nicoderm Cq) 1 patch TD DAILY [facility] Last Admin: 09/14/18 09:49 Dose: 1 patch Genvoya [Elvitegrav/Cobicis/Emtricita/Tenofov] 1 Tab (Home Med) 1 tab PO DAILY [facility] Last Admin: 09/14/18 10:01 Dose: 1 tab Pantoprazole Sodium (Protonix Ec Tab) 40 mg PO 0600,1600 [facility] Last Admin: 09/14/18 07:06 Dose: 40 mg Trimethoprim/Sulfamethoxazole (Bactrim Ds Tab) 1 tab PO BID [facility]; Protocol Last Admin: 09/14/18 09:48 Dose: 1 tab - Labs Labs: 09/14/18 14:15 09/14/18 14:15 Attending/Attestation - Attestation I have personally seen and examined this patient.: Yes I have fully participated in the care of the patient.: Yes I have reviewed all pertinent clinical information, including history, physical exam and plan: Yes Notes (Text): 09/14/18 17:27 58 year old female with past medical history of HIV, asthma and hypertension who presented with cough, fever and shortness of breath. Chest xray showed left lower lobe infiltrate on CXR. Continue with iv antibiotics. Cultures are negative to date. ID is following. CT chest showed right lower lobe mass (1.4 x 1.7 cm). Pulmonary and IR input were appreciated; recommended further evaluation with MRI vs PET scan. Will review MRI contrast protocol as patient has CKD which is stable. Continue with duonebs for mild intermittent asthma. Rafi Molina MD Hospitalist.
[2018-09-14 14:26] LABS: BASO # 0.01 K/mm3 (0.0-2.0); BASO % 0.3 % (0.0-3.0); HEMOGLOBIN 11.9 g/dL (12.0-16.0); LYMPH # 1.2 (1.2-3.4); LYMPH % 37.1 % (22.0-35.0); MEAN CELL VOLUME 93.4 fl (80.0-105.0); MEAN CORPUSCULAR HEMOGLOBIN 31.3 pg (25.0-35.0); MEAN CORPUSCULAR HGB CONC 33.5 g/dl (31.0-37.0); MEAN PLATELET VOLUME 9.6 fl (7.0-11.0); MONO # 0.2 (0.1-0.6); MONO % 5.5 % (1.0-6.0); RBC 3.8 10^6/uL (3.5-6.1); RED CELL DISTRIBUTION WIDTH 13.8 % (11.5-14.5); WHITE BLOOD COUNT 3.3 10^3/uL (4.5-11.0)
[2018-09-14 14:45] LABS: ALB/GLOB RATIO 0.6 (1.1-1.8); ALBUMIN 3.6 g/dL (3.0-4.8); ALT/SGPT < 6 U/L (7-56); AST/SGOT 45 U/L (14-36); BLOOD UREA NITROGEN 16 mg/dL (7-21); CALCIUM 8.6 mg/dL (8.4-10.5); GFR NON-AFRICAN AMERICAN 36
--- NOTE | 2018-09-14 15:03 | CP.PCM.PN ---
Subjective - Date & Time of Evaluation Date of Evaluation: 09/14/18 Time of Evaluation: 14:15 - Subjective Subjective: Infectious Disease Follow Up: September 14, 2018 58 yo AA female with past medical history of HIV, asthma, and hypertension with recent visit to [facility] on 09/05 presents with symptoms of fever, night sweats, body aches, sore throat, shortness of breath, productive cough with green sputum, and chest pain on the right side while coughing. Patient states symptoms started 2 months ago when patient was evaluated at [facility]. On another visit to [facility] ER 2 weeks ago, she was given a medrol dose pack which she did not complete. Patient then came to [facility] about a week ago, and she was admitted for p ersistent cold-like symptoms including sore throat, cough, chills, and runny nose but Chest X ray showed no acute disease. For this hospitalization, Chest X ray shows mild left lower lobe infiltrate and right bibasilar atelectasis. Patient did not think she had fevers but she has had heavy sweating. Patient continues to have productive cough with green sputum. She states having multiple episodes of non-bloody non-bilious vomitus. She started having Right sided rib burrell 2 weeks ago. Patient reports taking her home medications of Genoya (HAART) for HIV, bactrim for PCP prophylaxis, albuterol for asthma, and amlodipine for hypertension. The patient follows at the [facility] from [facility]. Will check the prior CD4 and HIV viral load there. Last values I can find are a CD4 of 180 in December 2017 and HIV Viral Load < 20. [facility] states patient has been compliant with HAART but was not able to confirm whether it was Genvoya or Stribild. A repeat CD4 and HIV Viral load should be performed here. The patient has no leukocytosis. Cultures negative to date. ON Bactrim and Zosyn for antibiotic coverage. Fevers up to 102.6 F in the past 72 hours and 100.7 F in the past 48 hours. Afebrile the past 24 hours. The patient was started with IV Vancomycin as well today. There is a CT scan from [facility] of the Abd/Pel not the Chest. The CT visualized a small portion of the lower lobes of the lungs where a mass was not seen in what was visualized... unclear if the [facility] CT scan visualized the same affected area as the CT done here. Dr. Ramos is unable to biopsy the mass due to the position of the mass. Objective - Vital Signs/Intake and Output Vital Signs (last 24 hours): Temp Pulse Resp BP Pulse Ox 98.3 F 83 18 110/68 95 09/14/18 06:00 09/14/18 06:00 09/14/18 06:00 09/14/18 09:48 09/14/18 06:00 Intake and Output: 09/14/18 09/14/18 06:59 18:59 Intake Total 540 Balance 540 - Medications Medications: Current Medications Acetaminophen (Tylenol 325mg Tab) 650 mg PO Q6H PRN PRN Reason: Fever >100.4 F Last Admin: 09/13/18 06:28 Dose: 650 mg Acetaminophen (Tylenol 325mg Tab) 650 mg PO Q6H PRN PRN Reason: Pain, moderate (4-7) Last Admin: 09/11/18 23:08 Dose: 650 mg Albuterol/Ipratropium (Duoneb 3 Mg/0.5 Mg (3 Ml) Ud) 3 ml IH [id number] [facility] Last Admin: 09/14/18 14:28 Dose: 3 ml Albuterol/Ipratropium (Duoneb 3 Mg/0.5 Mg (3 Ml) Ud) 3 ml IH Q2H PRN PRN Reason: Shortness of Breath Last Admin: 09/10/18 17:35 Dose: 3 ml Amlodipine Besylate (Norvasc) 10 mg PO DAILY [facility] Last Admin: 09/14/18 09:48 Dose: 10 mg Benzocaine/Menthol (Cepacol Sore Throat) 1 gutierrez MT Q2H PRN PRN Reason: Sore Throat Last Admin: 09/12/18 10:42 Dose: 1 gutierrez Benzonatate (Tessalon Perles) 100 mg PO TID [facility] Last Admin: 09/14/18 14:06 Dose: 100 mg Guaifenesin (Robitussin) 100 mg PO Q4H PRN PRN Reason: Cough Last Admin: 09/13/18 18:17 Dose: 100 mg Guaifenesin/Dextromethorphan (Mucinex-Dm 600-30 Mg) 1 tab PO BID [facility] Last Admin: 09/14/18 11:53 Dose: 1 tab Heparin Sodium (Porcine) (Heparin) 5,000 units SC Q8 JESSICA; Protocol Last Admin: 09/14/18 14:05 Dose: 5,000 units Piperacillin Sod/Tazobactam Sod (Zosyn 3.375 In Ns 100ml) 100 mls @ 25 mls/hr IVPB Q8 JESSICA; Protocol Last Admin: 09/14/18 14:06 Dose: 25 mls/hr Vancomycin HCl (Vancomycin 1gm) 1 gm in 250 mls @ 167 mls/hr IVPB DAILY JESSICA; Protocol Last Admin: 09/14/18 09:50 Dose: 167 mls/hr Nicotine (Nicoderm Cq) 1 patch TD DAILY [facility]ESS[facility] Last Admin: 09/14/18 09:49 Dose: 1 patch Genvoya [Elvitegrav/Cobicis/Emtricita/Tenofov] 1 Tab (Home Med) 1 tab PO DAILY JESSICA Last Admin: 09/14/18 10:01 Dose: 1 tab Pantoprazole Sodium (Protonix Ec Tab) 40 mg PO 0600,1600 [facility] Last Admin: 09/14/18 07:06 Dose: 40 mg Trimethoprim/Sulfamethoxazole (Bactrim Ds Tab) 1 tab PO BID JESSICA; Protocol Last Admin: 09/14/18 09:48 Dose: 1 tab - Labs Labs: 09/14/18 14:15 09/14/18 14:15 - Constitutional Appears: Non-toxic, No Acute Distress, Chronically Ill - Head Exam Head Exam: ATRAUMATIC, NORMOCEPHALIC - Eye Exam Eye Exam: EOMI, PERRL Pupil Exam: NORMAL ACCOMODATION, PERRL - ENT Exam ENT Exam: Mucous Membranes Moist, Normal External Ear Exam, TM's Normal Bilaterally - Neck Exam Neck Exam: Full ROM, Normal Inspection - Respiratory Exam Respiratory Exam: Decreased Breath Sounds, Rhonchi. absent: Rales, Wheezes Additional comments: bilateral bases of lungs but improving. - Cardiovascular Exam Cardiovascular Exam: REGULAR RHYTHM, RRR, +S1, +S2 - GI/Abdominal Exam GI & Abdominal Exam: Soft, Normal Bowel Sounds. absent: Distended, Tenderness - Extremities Exam Extremities Exam: Full ROM, Normal Inspection - Neurological Exam Neurological Exam: Alert, Awake, CN II-XII Intact, Oriented x3 - Psychiatric Exam Psychiatric exam: Normal Affect, Normal Mood - Skin Skin Exam: Intact, Normal Color Assessment and Plan - Assessment and Plan (Free Text) Assessment: 58 yo AA female with HIV with unknown CD4 and HIV Viral load who is on Bactrim normally. The patient states that she takes her HAART. LLL pneumonia as per Chest X-ray. Fevers up to 102.3 F overnight. Recheck HIV Viral Load and CD4 count. Will see into past numbers at [facility] and [facility]... as of December 2017, HIV Viral load of <20 and CD4 of 180. Continue with IV antibiotics of Zosyn and Bactrim. With the persistent fevers, IV Vancomycin. CT scan here showing right lower lobe mass. Will see if there is a prior CT at [facility] and if there are prior findings. No direct comparison to a similar CT Chest available. A CT of the Abd/Pelvis visualizes a small portion of the lower lobes of the lung where no mass or structure was seen. Bactrim dosing increased from preventative dosing to treatment dosing. IV Vancomycin started for treatment. Supportive care. No leukocytosis. Fevers up to 100.7 F in the past 48 hours. Cultures negative to date. Reculture at next fever spike. Pulmonology evaluated the patient and suggested to start with MRI. Must rule out malignancy. Patient now states a 27 lbs weight loss within the past 2 months. Afebrile now. The patient is unable to have a CT guided biopsy as the position of the mass is in an extremely difficult position to even attempt to biopsy. Thank you for allowing me to participate in the care of the patient, we will follow with you.
[2018-09-15] MEDS: Albuterol-Ipratrop 3 mg / 0.5 (3 ml) UD IH SCH ×4 (01:31→19:21)
[2018-09-15] MEDS: Piperacillin/Tazobact 3.375 gm 100 ML IVPB SCH ×3 (05:44→21:27)
[2018-09-15] MEDS: Pantoprazole 40 mg EC Tab PO SCH ×2 (05:44→17:10)
[2018-09-15 07:37] LABS: BASO # 0.01 K/mm3 (0.0-2.0); BASO % 0.3 % (0.0-3.0); EOS % 0.3 % (1.5-5.0); LYMPH # 1.2 (1.2-3.4); LYMPH % 36.3 % (22.0-35.0); MEAN CORPUSCULAR HEMOGLOBIN 31.3 pg (25.0-35.0); MEAN PLATELET VOLUME 9.4 fl (7.0-11.0); MONO # 0.2 (0.1-0.6); MONO % 7.1 % (1.0-6.0); RBC 3.52 10^6/uL (3.5-6.1); RED CELL DISTRIBUTION WIDTH 13.7 % (11.5-14.5); WHITE BLOOD COUNT 3.4 10^3/uL (4.5-11.0)
[2018-09-15 07:56] LABS: ALB/GLOB RATIO 0.6 (1.1-1.8); ALBUMIN 3.5 g/dL (3.0-4.8); BLOOD UREA NITROGEN 13 mg/dL (7-21); CALCIUM 8.7 mg/dL (8.4-10.5); GFR NON-AFRICAN AMERICAN 42
[2018-09-15 07:59] LABS: ALT/SGPT < 6 U/L (7-56); AST/SGOT 47 U/L (14-36)
[2018-09-15] MEDS: Tmp-Smz 800 mg-160 mg DS Tab PO SCH (11:27)
[2018-09-15] MEDS: GENVOYA PO SCH (11:30)
[2018-09-15] MEDS: guaiFENesin-DM 600-30 mg ER Tab PO SCH ×2 (11:31→17:09)
[2018-09-15] MEDS: Vancomycin 1gm in NS 250ml 1 GM/250 ML BAG IVPB SCH (11:44)
--- NOTE | 2018-09-15 12:43 | CP.PCM.PN ---
<Ross Guo - Last Filed: 09/15/18 15:17> Subjective - Date & Time of Evaluation Date of Evaluation: 09/15/18 Time of Evaluation: 12:43 - Subjective Subjective: PGY1 Medicine Progress Note for Dr. Viramontes Patient was seen and evaluated at bedside this morning. No acute events overnight. No new complaints. Patient otherwise denies chest pain, headache, abdominal pain, nausea/vomiting, diarrhea. Patient tolerating breakfast. Patient was able to sleep throughout the night. Objective - Vital Signs/Intake and Output Vital Signs (last 24 hours): Temp Pulse Resp BP Pulse Ox 97.9 F 87 18 119/71 93 L 09/15/18 06:00 09/15/18 06:00 09/15/18 06:00 09/15/18 11:33 09/15/18 06:00 Intake and Output: 09/15/18 09/15/18 06:59 18:59 Intake Total 540 Balance 540 - Medications Medications: Current Medications Acetaminophen (Tylenol 325mg Tab) 650 mg PO Q6H PRN PRN Reason: Fever >100.4 F Last Admin: 09/13/18 06:28 Dose: 650 mg Acetaminophen (Tylenol 325mg Tab) 650 mg PO Q6H PRN PRN Reason: Pain, moderate (4-7) Last Admin: 09/11/18 23:08 Dose: 650 mg Albuterol/Ipratropium (Duoneb 3 Mg/0.5 Mg (3 Ml) Ud) 3 ml IH [id number] [facility] Last Admin: 09/15/18 07:27 Dose: 3 ml Albuterol/Ipratropium (Duoneb 3 Mg/0.5 Mg (3 Ml) Ud) 3 ml IH Q2H PRN PRN Reason: Shortness of Breath Last Admin: 09/10/18 17:35 Dose: 3 ml Amlodipine Besylate (Norvasc) 10 mg PO DAILY [facility] Last Admin: 09/15/18 11:33 Dose: 10 mg Benzocaine/Menthol (Cepacol Sore Throat) 1 gutierrez MT Q2H PRN PRN Reason: Sore Throat Last Admin: 09/12/18 10:42 Dose: 1 gutierrez Benzonatate (Tessalon Perles) 100 mg PO TID [facility] Last Admin: 09/15/18 11:27 Dose: 100 mg Guaifenesin (Robitussin) 100 mg PO Q4H PRN PRN Reason: Cough Last Admin: 09/13/18 18:17 Dose: 100 mg Guaifenesin/Dextromethorphan (Mucinex-Dm 600-30 Mg) 1 tab PO BID [facility] Last Admin: 09/15/18 11:31 Dose: 1 tab Heparin Sodium (Porcine) (Heparin) 5,000 units SC Q8 JESSICA; Protocol Last Admin: 09/15/18 05:43 Dose: 5,000 units Piperacillin Sod/Tazobactam Sod (Zosyn 3.375 In Ns 100ml) 100 mls @ 25 mls/hr IVPB Q8 JESSICA; Protocol Last Admin: 09/15/18 05:44 Dose: 25 mls/hr Vancomycin HCl (Vancomycin 1gm) 1 gm in 250 mls @ 167 mls/hr IVPB DAILY JESSICA; Protocol Last Admin: 09/15/18 11:44 Dose: 167 mls/hr Nicotine (Nicoderm Cq) 1 patch TD DAILY [facility] Last Admin: 09/15/18 11:32 Dose: 1 patch Genvoya [Elvitegrav/Cobicis/Emtricita/Tenofov] 1 Tab (Home Med) 1 tab PO DAILY [facility] Last Admin: 09/15/18 11:30 Dose: 1 tab Pantoprazole Sodium (Protonix Ec Tab) 40 mg PO 0600,1600 [facility] Last Admin: 09/15/18 05:44 Dose: 40 mg - Labs Labs: 09/15/18 07:15 09/15/18 07:15 - Additional Findings Additional findings: - Constitutional Appears: Well, Toxic, No Acute Distress - Head Exam Head Exam: ATRAUMATIC, NORMAL INSPECTION, NORMOCEPHALIC - Eye Exam Eye Exam: EOMI, PERRL - Neck Exam Neck exam: Positive for: Full Rom - Respiratory Exam Additional comments: crackles of bilateral lower lobe bases - Cardiovascular Exam Cardiovascular Exam: REGULAR RHYTHM, RRR - GI/Abdominal Exam GI & Abdominal Exam: Normal Bowel Sounds, Soft. absent: Tenderness - Extremities Exam Extremities exam: Positive for: normal inspection - Neurological Exam Neurological exam: Alert, CN II-XII Intact, Oriented x3 - Psychiatric Exam Psychiatric exam: Normal Affect, Normal Mood - Skin Skin Exam: Dry, Intact, Normal Color Assessment and Plan - Assessment and Plan (Free Text) Assessment: Sepsis 2/2 Pneumonia vs. Bronchitis / R/O underlying metastatic process vs Lymphoma - CXR 09/10: left lower lobe infiltrate - Chest CT 09/12: right lower lobe mass 1.4 x 1.7, lower lobe atelectasis without discrete/focal infiltrate, lower airway disease/bronchitis * IR consulted for possible biopsy; recommendations appreciated * Pulmonology consulted; Dr. Ontiveros; recommendations appreciated * Per patient, she had 27 pound weight loss in 6-8 week period * MRI with contrast of chest: 14mm nodule in the azygo esephageal recess of the right lower lobe. * Proceed with CT guided biopsy if needed vs EBUS approach - ABG 09/12: pH: 7.46, pO2: 57, pCO2: 31. Moderate hypoxia and hypocapnea - UA: moderate blood, negative LE and nitrate, 20-25 RBC, 0-2 WBC, 3-4 epithelial cells, moderate bacteria. Doubt UTI - Influenza negative - Blood culture: 09/10: negative - Pending Sputum culture - Procalcitonin: < 0.05 - Lactate unremarkable. LDH unremarkable at 457 - Continue with bactrim and zosyn day 5 for suspected HCAP; vancomycin 1 gm daily as of 07/12/[address] Perez. - Continue tylenol PRN for fever of more than 100.4 or for right sided rib pain - Patient no longer complains of rib pain but continues to complain of abdominal pain - Continue robitussin PRN, cepacol, and tessalon perles for cough. - If patient's O2 saturation desaturates again, will consider consulting Pulmonary. At this time, patient is in bed and comfortable. - ID, Dr. Perez, consulted for further recommendations Abdominal pain likely 2/2 to fatigued abdominal muscles vs. GERD - Patient counseled regarding taking all anti-cough medications including robitussin, cepacol, and tessalon perles - Protonix 40 mg BID History of HIV - CD4 count 89 - Viral load high - Continue with home genoya - Continue with therapeutic bactrim for PCP prophylaxis SAUL on CKD - Reported creatinine of 5 two months ago - Last documented creatinine of 1.5 - Discontinued: NS Asthma - Continue duonebs Q6 JESSICA and Q2PRN Hypertension - Currently normotensive - Continue home amlodipine 10 mg daily Normocytic Anemia - Hgb stable - Will continue to monitor and evaluate. - Possibly secondary to anemia of chronic disease from infection vs iron deficiency anemia. GI prophylaxis: protonix 40 mg daily DVT prophylaxis: heparin 5000 U Q8 Patient plan discussed with Dr. Wander Guo <Dima Viramontes - Last Filed: 09/18/18 15:19> Objective - Vital Signs/Intake and Output Vital Signs (last 24 hours): Temp Pulse Resp BP Pulse Ox 98 F 91 H 18 150/90 93 L 09/17/18 07:29 09/17/18 07:29 09/17/18 07:29 09/17/18 09:57 09/17/18 07:29 - Labs Labs: 09/16/18 08:00 09/16/18 08:00 Attending/Attestation - Attestation I have personally seen and examined this patient.: Yes I have fully participated in the care of the patient.: Yes I have reviewed all pertinent clinical information, including history, physical exam and plan: Yes Notes (Text): 09/18/18 15:19 Medical record note made by the resident after discussion with my direction and input after the patient was personally seen and examined by me. I have reviewed the chart and agree that the record accurately reflects by personal performance of the history, physical exam, data review, and medical decision-making, in the course for the patient. I have also personally directed the plan of care.
[2018-09-15] MEDS ORDERED: Gadodiamide 287 MG/ML VIAL (20ML) IV ONE (12:47)
--- NOTE | 2018-09-15 13:24 | CP.PCM.PN ---
Subjective - Date & Time of Evaluation Date of Evaluation: 09/15/18 Time of Evaluation: 11:00 - Subjective Subjective: Low grade temps CD4 shows < 100 (AIDS) Objective - Vital Signs/Intake and Output Vital Signs (last 24 hours): Temp Pulse Resp BP Pulse Ox 97.9 F 87 18 119/71 93 L 09/15/18 06:00 09/15/18 06:00 09/15/18 06:00 09/15/18 11:33 09/15/18 06:00 Intake and Output: 09/15/18 09/15/18 06:59 18:59 Intake Total 540 Balance 540 - Medications Medications: Current Medications Acetaminophen (Tylenol 325mg Tab) 650 mg PO Q6H PRN PRN Reason: Fever >100.4 F Last Admin: 09/13/18 06:28 Dose: 650 mg Acetaminophen (Tylenol 325mg Tab) 650 mg PO Q6H PRN PRN Reason: Pain, moderate (4-7) Last Admin: 09/11/18 23:08 Dose: 650 mg Albuterol/Ipratropium (Duoneb 3 Mg/0.5 Mg (3 Ml) Ud) 3 ml IH [id number] [facility] Last Admin: 09/15/18 13:15 Dose: Not Given Albuterol/Ipratropium (Duoneb 3 Mg/0.5 Mg (3 Ml) Ud) 3 ml IH Q2H PRN PRN Reason: Shortness of Breath Last Admin: 09/10/18 17:35 Dose: 3 ml Amlodipine Besylate (Norvasc) 10 mg PO DAILY [facility] Last Admin: 09/15/18 11:33 Dose: 10 mg Benzocaine/Menthol (Cepacol Sore Throat) 1 gutierrez MT Q2H PRN PRN Reason: Sore Throat Last Admin: 09/12/18 10:42 Dose: 1 gutierrez Benzonatate (Tessalon Perles) 100 mg PO TID [facility] Last Admin: 09/15/18 11:27 Dose: 100 mg Guaifenesin (Robitussin) 100 mg PO Q4H PRN PRN Reason: Cough Last Admin: 09/13/18 18:17 Dose: 100 mg Guaifenesin/Dextromethorphan (Mucinex-Dm 600-30 Mg) 1 tab PO BID [facility] Last Admin: 09/15/18 11:31 Dose: 1 tab Heparin Sodium (Porcine) (Heparin) 5,000 units SC Q8 JESSICA; Protocol Last Admin: 09/15/18 05:43 Dose: 5,000 units Piperacillin Sod/Tazobactam Sod (Zosyn 3.375 In Ns 100ml) 100 mls @ 25 mls/hr IVPB Q8 JESSICA; Protocol Last Admin: 09/15/18 05:44 Dose: 25 mls/hr Vancomycin HCl (Vancomycin 1gm) 1 gm in 250 mls @ 167 mls/hr IVPB DAILY [facility]ESSICA; Protocol Last Admin: 09/15/18 11:44 Dose: 167 mls/hr Nicotine (Nicoderm Cq) 1 patch TD DAILY [facility] Last Admin: 09/15/18 11:32 Dose: 1 patch Genvoya [Elvitegrav/Cobicis/Emtricita/Tenofov] 1 Tab (Home Med) 1 tab PO DAILY [facility] Last Admin: 09/15/18 11:30 Dose: 1 tab Pantoprazole Sodium (Protonix Ec Tab) 40 mg PO 0600,1600 [facility] Last Admin: 09/15/18 05:44 Dose: 40 mg - Labs Labs: 09/15/18 07:15 09/15/18 07:15 Assessment and Plan - Assessment and Plan (Free Text) Assessment: 58F smoker with HIV/AIDS on HAART admitted for 2 months of productive cough, sob ,fevers and night sweat being tx with broad spectrum abx for PNA. CT Scan shows right lower lobe nodule (not mass) 1.4 x 1.7 cm round well circumscribed. This appears to be in the posterior mediastinum. Most common cause of posterior mediastinal nodule are benign neurogenic tumors such as ganglioneuroma, neurofibroma and rarely schwanoma. However, most alarming is her reported 27 pound weight loss over 6-8week which raises concern for cancer. It is unclear if her mediastinal LN is related to the nodule implying a metastatic process or this is unrelated. During acute infection mediastinal LN can be enlarged however AIDS paitient's are at risk for lymphoma as well. Her smoking history also puts her at risk for cancer. No plan for IR CT guided biopsy given location of nodule which I agree with. She should have an MRI to to determine if the RLL mass is neurogenic or not. Either way, outpatient she needs a PET scan. The mediastinal LN are either infectious or malignant and I suspect they will be PET avid regardless. She should be referred for EBUS after the PET for sampling of the mediastinal LN. At this time, we do not perform EBUS at this facility. Benito Ontiveros MD Pulmonary Critical Care Sleep Medicine
--- NOTE | 2018-09-15 14:38 | MRI ---
Date of service: 09/15/2018 PROCEDURE: MRI of the chest with and without contrast HISTORY: Evaluation for posterior mediastinal mass COMPARISON: CT of the chest 09/12/2018 TECHNIQUE: MRI of the chest was performed in multiple planes using multiple pulse sequences including postcontrast imaging. 20 cc of Omniscan were injected. FINDINGS: The CT demonstrates a 14 mm nodule in the azygoesophageal recess of the right lower lobe. This lesion is also demonstrated on MRI where it is high in signal intensity on the T2 weighted images. This is nonspecific but suspicious for neoplastic lesion. Small mediastinal lymph nodes are seen which were also better visualized on CT. There is no evidence of pleural effusion or chest wall lesion. There is no axillary adenopathy. IMPRESSION: 14 mm nodule in the azygo esophageal recess of the right lower lobe. MRI findings are nonspecific
--- NOTE | 2018-09-15 16:10 | CP.PCM.PN ---
Subjective - Date & Time of Evaluation Date of Evaluation: 09/15/18 Time of Evaluation: 15:00 - Subjective Subjective: Infectious Disease Follow Up: September 15, 2018 58 yo AA female with past medical history of HIV, asthma, and hypertension with [place] [facility] presents with symptoms of fever, night sweats, body aches, sore throat, shortness of breath, productive cough with green sputum, and chest pain on the right side while coughing. Patient states symptoms started 2 months ago when patient was evaluated at [facility]. On another visit to [facility] ER 2 weeks ago, she was given a medrol dose pack which she did not complete. Patient then came to [facility] about a week ago, and she was admitted for p ersistent cold-like symptoms including sore throat, cough, chills, and runny nose but Chest X ray showed no acute disease. For this hospitalization, Chest X ray shows mild left lower lobe infiltrate and right bibasilar atelectasis. Patient did not think she had fevers but she has had heavy sweating. Patient continues to have productive cough with green sputum. She states having multiple episodes of non-bloody non-bilious vomitus. She started having Right sided rib burrell 2 weeks ago. Patient reports taking her home medications of Genoya (HAART) for HIV, bactrim for PCP prophylaxis, albuterol for asthma, and amlodipine for hypertension. The patient follows at the [facility] from [facility]. Will check the prior CD4 and HIV viral load there. Last values I can find are a CD4 of 180 in December 2017 and HIV Viral Load < 20. [facility] states patient has been compliant with HAART but was not able to confirm whether it was Genvoya or Stribild. A repeat CD4 and HIV Viral load should be performed here. The patient has no leukocytosis. Cultures negative to date. ON Bactrim and Zosyn for antibiotic coverage. Fevers up to 102.6 F in the past 72 hours and 100.7 F in the past 48 hours. Afebrile the past 24 hours. The patient was started with IV Vancomycin as well today. There is a CT scan from [facility] of the Abd/Pel not the Chest. The CT visualized a small portion of the lower lobes of the lungs where a mass was not seen in what was visualized... unclear if the [facility] CT scan visualized the same affected area as the CT done here. Dr. Ramos is unable to biopsy the mass due to the position of the mass. MRI is showing 14mm nodule in the azygoesophageal recess of the right lower lobe that is highly suspicious of a neoplastic process. Objective - Vital Signs/Intake and Output Vital Signs (last 24 hours): Temp Pulse Resp BP Pulse Ox 97.9 F 87 18 119/71 93 L 09/15/18 06:00 09/15/18 06:00 09/15/18 06:00 09/15/18 11:33 09/15/18 06:00 Intake and Output: 09/15/18 09/15/18 06:59 18:59 Intake Total 540 Balance 540 - Medications Medications: Current Medications Acetaminophen (Tylenol 325mg Tab) 650 mg PO Q6H PRN PRN Reason: Fever >100.4 F Last Admin: 09/13/18 06:28 Dose: 650 mg Acetaminophen (Tylenol 325mg Tab) 650 mg PO Q6H PRN PRN Reason: Pain, moderate (4-7) Last Admin: 09/11/18 23:08 Dose: 650 mg Albuterol/Ipratropium (Duoneb 3 Mg/0.5 Mg (3 Ml) Ud) 3 ml IH [id number] JESSICA Last Admin: 09/15/18 13:15 Dose: Not Given Albuterol/Ipratropium (Duoneb 3 Mg/0.5 Mg (3 Ml) Ud) 3 ml IH Q2H PRN PRN Reason: Shortness of Breath Last Admin: 09/10/18 17:35 Dose: 3 ml Amlodipine Besylate (Norvasc) 10 mg PO DAILY JESSICA Last Admin: 09/15/18 11:33 Dose: 10 mg Benzocaine/Menthol (Cepacol Sore Throat) 1 gutierrez MT Q2H PRN PRN Reason: Sore Throat Last Admin: 09/12/18 10:42 Dose: 1 gutierrez Benzonatate (Tessalon Perles) 100 mg PO TID JESSICA Last Admin: 09/15/18 14:20 Dose: 100 mg Guaifenesin (Robitussin) 100 mg PO Q4H PRN PRN Reason: Cough Last Admin: 09/13/18 18:17 Dose: 100 mg Guaifenesin/Dextromethorphan (Mucinex-Dm 600-30 Mg) 1 tab PO BID [facility] Last Admin: 09/15/18 11:31 Dose: 1 tab Heparin Sodium (Porcine) (Heparin) 5,000 units SC Q8 JESSICA; Protocol Last Admin: 09/15/18 14:20 Dose: 5,000 units Piperacillin Sod/Tazobactam Sod (Zosyn 3.375 In Ns 100ml) 100 mls @ 25 mls/hr IVPB Q8 JESSICA; Protocol Last Admin: 09/15/18 14:21 Dose: 25 mls/hr Nicotine (Nicoderm Cq) 1 patch TD DAILY JESSICA Last Admin: 09/15/18 11:32 Dose: 1 patch Genvoya [Elvitegrav/Cobicis/Emtricita/Tenofov] 1 Tab (Home Med) 1 tab PO DAILY JESSICA Last Admin: 09/15/18 11:30 Dose: 1 tab Pantoprazole Sodium (Protonix Ec Tab) 40 mg PO 0600,1600 [facility] Last Admin: 09/15/18 05:44 Dose: 40 mg - Labs Labs: 09/15/18 07:15 09/15/18 07:15 - Constitutional Appears: Non-toxic, No Acute Distress, Chronically Ill - Head Exam Head Exam: ATRAUMATIC, NORMOCEPHALIC - Eye Exam Eye Exam: EOMI, PERRL Pupil Exam: NORMAL ACCOMODATION, PERRL - ENT Exam ENT Exam: Mucous Membranes Moist, Normal External Ear Exam, TM's Normal Bilaterally - Neck Exam Neck Exam: Full ROM, Normal Inspection - Respiratory Exam Respiratory Exam: Decreased Breath Sounds, NORMAL BREATHING PATTERN. absent: Rales, Rhonchi, Wheezes Additional comments: bilateral bases of lungs but improving. - Cardiovascular Exam Cardiovascular Exam: REGULAR RHYTHM, RRR, +S1, +S2 - GI/Abdominal Exam GI & Abdominal Exam: Soft, Normal Bowel Sounds. absent: Distended, Tenderness - Extremities Exam Extremities Exam: Full ROM, Normal Inspection - Neurological Exam Neurological Exam: Alert, Awake, CN II-XII Intact, Oriented x3 - Psychiatric Exam Psychiatric exam: Normal Affect, Normal Mood - Skin Skin Exam: Intact, Normal Color Assessment and Plan - Assessment and Plan (Free Text) Assessment: 58 yo AA female with HIV with unknown CD4 and HIV Viral load who is on Bactrim normally. The patient states that she takes her HAART. LLL pneumonia as per Chest X-ray. Fevers up to 102.3 F overnight. Recheck HIV Viral Load and CD4 count. Will see into past numbers at [facility] and [facility]... as of December 2017, HIV Viral load of <20 and CD4 of 180. Continue with IV antibiotics of Zosyn and Bactrim. With the persistent fevers, IV Vancomycin. CT scan here showing right lower lobe mass. Will see if there is a prior CT at [facility] and if there are prior findings. No direct comparison to a similar CT Chest available. A CT of the Abd/Pelvis visualizes a small portion of the lower lobes of the lung where no mass or structure was seen. Bactrim dosing increased from preventative dosing to treatment dosing. IV Vancomycin started for treatment. Supportive care. No leukocytosis. Fevers up to 100.7 F in the past 48 hours. Cultures negative to date. Reculture at next fever spike. Pulmonology evaluated the patient and suggested to start with MRI. Must rule out malignancy. Patient now states a 27 lbs weight loss within the past 2 months. Afebrile now. The patient is unable to have a CT guided biopsy as the position of the mass is in an extremely difficult position to even attempt to biopsy. MRI don and is showing 14mm nodule in the azygoesophageal recess of the right lower lobe that is highly suspicious of a neoplastic process. CD4 count of 89 and HIV Viral load just under 1000 (log 2.96). The mass has potential for malignancy given smoking history. Lymphoma especially B-cell lymphomas cannot be ruled out given low CD4 and having a HIV Viral load (if the patient has been compliant with HAART and HIV viral load has been low to undetectable, the risk for lymphoma should only be minimally raised versus the general population). Will have to let her care team at [facility] know these results including the MRI as biopsying the lesion will be difficult. Thank you for allowing me to participate in the care of the patient, we will follow with you.
--- NOTE | 2018-09-15 22:47 | CP.PCM.PN ---
<LesaRociosilvano Wong - Last Filed: 09/15/18 22:48> Subjective - Date & Time of Evaluation Date of Evaluation: 09/15/18 Time of Evaluation: 21:40 - Subjective Subjective: Paged by nurse Patient complained of chest pressure Patient examined at bedside Vital signs BP 130/86 HR 82 O2 saturation 94% on 5 L NC EKG and troponins ordered Will followup and reassess Dee Mcfadden PGY-1 Objective - Vital Signs/Intake and Output Vital Signs (last 24 hours): Temp Pulse Resp BP Pulse Ox 98.7 F 80 18 123/78 95 09/15/18 21:50 09/15/18 21:50 09/15/18 21:50 09/15/18 21:50 09/15/18 21:50 Intake and Output: 09/15/18 09/16/18 18:59 06:59 Intake Total 620 Balance 620 - Medications Medications: Current Medications Acetaminophen (Tylenol 325mg Tab) 650 mg PO Q6H PRN PRN Reason: Fever >100.4 F Last Admin: 09/13/18 06:28 Dose: 650 mg Acetaminophen (Tylenol 325mg Tab) 650 mg PO Q6H PRN PRN Reason: Pain, moderate (4-7) Last Admin: 09/11/18 23:08 Dose: 650 mg Albuterol/Ipratropium (Duoneb 3 Mg/0.5 Mg (3 Ml) Ud) 3 ml IH [id number] [facility] Last Admin: 09/15/18 19:21 Dose: 3 ml Albuterol/Ipratropium (Duoneb 3 Mg/0.5 Mg (3 Ml) Ud) 3 ml IH Q2H PRN PRN Reason: Shortness of Breath Last Admin: 09/10/18 17:35 Dose: 3 ml Amlodipine Besylate (Norvasc) 10 mg PO DAILY [facility] Last Admin: 09/15/18 11:33 Dose: 10 mg Benzocaine/Menthol (Cepacol Sore Throat) 1 gutierrez MT Q2H PRN PRN Reason: Sore Throat Last Admin: 09/12/18 10:42 Dose: 1 gutierrez Benzonatate (Tessalon Perles) 100 mg PO TID [facility] Last Admin: 09/15/18 17:09 Dose: 100 mg Guaifenesin (Robitussin) 100 mg PO Q4H PRN PRN Reason: Cough Last Admin: 09/13/18 18:17 Dose: 100 mg Guaifenesin/Dextromethorphan (Mucinex-Dm 600-30 Mg) 1 tab PO BID [facility] Last Admin: 09/15/18 17:09 Dose: 1 tab Heparin Sodium (Porcine) (Heparin) 5,000 units SC Q8 JESSICA; Protocol Last Admin: 09/15/18 21:27 Dose: 5,000 units Piperacillin Sod/Tazobactam Sod (Zosyn 3.375 In Ns 100ml) 100 mls @ 25 mls/hr IVPB Q8 JESSICA; Protocol Last Admin: 09/15/18 21:27 Dose: 25 mls/hr Nicotine (Nicoderm Cq) 1 patch TD DAILY [facility] Last Admin: 09/15/18 11:32 Dose: 1 patch Genvoya [Elvitegrav/Cobicis/Emtricita/Tenofov] 1 Tab (Home Med) 1 tab PO DAILY [facility] Last Admin: 09/15/18 11:30 Dose: 1 tab Pantoprazole Sodium (Protonix Ec Tab) 40 mg PO 0600,1600 [facility] Last Admin: 09/15/18 17:10 Dose: 40 mg - Labs Labs: 09/15/18 07:15 09/15/18 07:15 <[address] - Last Filed: 09/16/18 19:21> Objective - Vital Signs/Intake and Output Vital Signs (last 24 hours): Temp Pulse Resp BP Pulse Ox 98.2 F 80 20 126/81 92 L 09/16/18 14:00 09/16/18 14:00 09/16/18 14:00 09/16/18 14:00 09/16/18 14:00 Intake and Output: 09/16/18 09/17/18 18:59 06:59 Intake Total 480 Balance 480 - Medications Medications: Current Medications Acetaminophen (Tylenol 325mg Tab) 650 mg PO Q6H PRN PRN Reason: Fever >100.4 F Last Admin: 09/13/18 06:28 Dose: 650 mg Acetaminophen (Tylenol 325mg Tab) 650 mg PO Q6H PRN PRN Reason: Pain, moderate (4-7) Last Admin: 09/11/18 23:08 Dose: 650 mg Albuterol/Ipratropium (Duoneb 3 Mg/0.5 Mg (3 Ml) Ud) 3 ml IH [id number] [facility] Last Admin: 09/16/18 13:06 Dose: 3 ml Albuterol/Ipratropium (Duoneb 3 Mg/0.5 Mg (3 Ml) Ud) 3 ml IH Q2H PRN PRN Reason: Shortness of Breath Last Admin: 09/10/18 17:35 Dose: 3 ml Amlodipine Besylate (Norvasc) 10 mg PO DAILY [facility] Last Admin: 09/16/18 09:57 Dose: 10 mg Benzocaine/Menthol (Cepacol Sore Throat) 1 gutierrez MT Q2H PRN PRN Reason: Sore Throat Last Admin: 09/12/18 10:42 Dose: 1 gutierrez Benzonatate (Tessalon Perles) 100 mg PO TID [facility] Last Admin: 09/16/18 17:30 Dose: 100 mg Guaifenesin (Robitussin) 100 mg PO Q4H PRN PRN Reason: Cough Last Admin: 09/13/18 18:17 Dose: 100 mg Guaifenesin/Dextromethorphan (Mucinex-Dm 600-30 Mg) 1 tab PO BID [facility] Last Admin: 09/16/18 17:30 Dose: 1 tab Heparin Sodium (Porcine) (Heparin) 5,000 units SC Q8 [facility]; Protocol Last Admin: 09/16/18 13:53 Dose: Not Given Piperacillin Sod/Tazobactam Sod (Zosyn 3.375 In Ns 100ml) 100 mls @ 25 mls/hr IVPB Q8 [facility]; Protocol Last Admin: 09/16/18 13:49 Dose: 25 mls/hr Nicotine (Nicoderm Cq) 1 patch TD DAILY [facility] Last Admin: 09/16/18 09:57 Dose: 1 patch Genvoya [Elvitegrav/Cobicis/Emtricita/Tenofov] 1 Tab (Home Med) 1 tab PO DAILY [facility] Last Admin: 09/16/18 10:02 Dose: 1 tab Pantoprazole Sodium (Protonix Ec Tab) 40 mg PO 0600,1600 [facility] Last Admin: 09/16/18 17:30 Dose: 40 mg Trimethoprim/Sulfamethoxazole (Bactrim Ds Tab) 1 tab PO BID [facility]; Protocol Last Admin: 02/22/19 17:30 Dose: 1 tab - Labs Labs: 09/16/18 08:00 09/16/18 08:00 Attending/Attestation - Attestation I have personally seen and examined this patient.: No I have fully participated in the care of the patient.: No I have reviewed all pertinent clinical information, including history, physical exam and plan: No
[2018-09-16] MEDS: Albuterol-Ipratrop 3 mg / 0.5 (3 ml) UD IH SCH ×4 (01:26→20:50)
[2018-09-16] MEDS: Piperacillin/Tazobact 3.375 gm 100 ML IVPB SCH ×3 (05:20→21:15)
[2018-09-16] MEDS: Pantoprazole 40 mg EC Tab PO SCH ×2 (05:20→17:30)
[2018-09-16 08:23] LABS: BASO # 0.03 K/mm3 (0.0-2.0); EOS % 0.3 % (1.5-5.0); HEMOGLOBIN 10.9 g/dL (12.0-16.0); LYMPH # 1.3 (1.2-3.4); LYMPH % 42.3 % (22.0-35.0); MEAN CELL VOLUME 92.2 fl (80.0-105.0); MEAN CORPUSCULAR HEMOGLOBIN 31.4 pg (25.0-35.0); MEAN CORPUSCULAR HGB CONC 34.1 g/dl (31.0-37.0); MEAN PLATELET VOLUME 9.7 fl (7.0-11.0); MONO # 0.3 (0.1-0.6); MONO % 9.1 % (1.0-6.0); RBC 3.47 10^6/uL (3.5-6.1); RED CELL DISTRIBUTION WIDTH 13.7 % (11.5-14.5); WHITE BLOOD COUNT 3.1 10^3/uL (4.5-11.0)
[2018-09-16 08:36] LABS: ALB/GLOB RATIO 0.6 (1.1-1.8); ALBUMIN 3.6 g/dL (3.0-4.8); CALCIUM 9.1 mg/dL (8.4-10.5)
--- NOTE | 2018-09-16 09:17 | CARD ---
APPROVED REPORT Date of service: 09/15/2018 EKG Measurement Heart [id number] <Conclusion> Normal sinus rhythm Minimal voltage criteria for LVH, may be normal variant Otherwise normal ECG
[2018-09-16] MEDS: Tmp-Smz 800 mg-160 mg DS Tab PO SCH ×2 (09:58→17:30)
[2018-09-16] MEDS: guaiFENesin-DM 600-30 mg ER Tab PO SCH ×2 (09:58→17:30)
[2018-09-16] MEDS: GENVOYA PO SCH (10:02)
--- NOTE | 2018-09-16 12:54 | CP.PCM.PN ---
<Ross Guo - Last Filed: 09/16/18 13:18> Subjective - Date & Time of Evaluation Date of Evaluation: 09/16/18 Time of Evaluation: 12:53 - Subjective Subjective: PGY1 Medicine Progress Note for Dr. Viramontes Patient was seen and evaluated at bedside this morning. Patient stated she had chest pain overnight. Patient currently denies chest pain. No new complaints. Patient otherwise denies headache, abdominal pain, nausea/vomiting, diarrhea. Patient tolerating breakfast. Objective - Vital Signs/Intake and Output Vital Signs (last 24 hours): Temp Pulse Resp BP Pulse Ox 99.3 F 74 18 129/81 93 L 09/16/18 06:00 09/16/18 06:00 09/16/18 06:00 09/16/18 09:57 09/16/18 06:00 Intake and Output: 09/16/18 09/16/18 06:59 18:59 Intake Total 620 Balance 620 - Medications Medications: Current Medications Acetaminophen (Tylenol 325mg Tab) 650 mg PO Q6H PRN PRN Reason: Fever >100.4 F Last Admin: 09/13/18 06:28 Dose: 650 mg Acetaminophen (Tylenol 325mg Tab) 650 mg PO Q6H PRN PRN Reason: Pain, moderate (4-7) Last Admin: 09/11/18 23:08 Dose: 650 mg Albuterol/Ipratropium (Duoneb 3 Mg/0.5 Mg (3 Ml) Ud) 3 ml IH [id number] [facility] Last Admin: 09/16/18 07:33 Dose: Not Given Albuterol/Ipratropium (Duoneb 3 Mg/0.5 Mg (3 Ml) Ud) 3 ml IH Q2H PRN PRN Reason: Shortness of Breath Last Admin: 09/10/18 17:35 Dose: 3 ml Amlodipine Besylate (Norvasc) 10 mg PO DAILY [facility] Last Admin: 09/16/18 09:57 Dose: 10 mg Benzocaine/Menthol (Cepacol Sore Throat) 1 gutierrez MT Q2H PRN PRN Reason: Sore Throat Last Admin: 09/12/18 10:42 Dose: 1 gutierrez Benzonatate (Tessalon Perles) 100 mg PO TID [facility] Last Admin: 09/16/18 09:58 Dose: 100 mg Guaifenesin (Robitussin) 100 mg PO Q4H PRN PRN Reason: Cough Last Admin: 09/13/18 18:17 Dose: 100 mg Guaifenesin/Dextromethorphan (Mucinex-Dm 600-30 Mg) 1 tab PO BID [facility] Last Admin: 09/16/18 09:58 Dose: 1 tab Heparin Sodium (Porcine) (Heparin) 5,000 units SC Q8 JESSICA; Protocol Last Admin: 09/16/18 05:20 Dose: 5,000 units Piperacillin Sod/Tazobactam Sod (Zosyn 3.375 In Ns 100ml) 100 mls @ 25 mls/hr IVPB Q8 [facility]; Protocol Last Admin: 09/16/18 05:20 Dose: 25 mls/hr Nicotine (Nicoderm Cq) 1 patch TD DAILY [facility] Last Admin: 09/16/18 09:57 Dose: 1 patch Genvoya [Elvitegrav/Cobicis/Emtricita/Tenofov] 1 Tab (Home Med) 1 tab PO DAILY [facility] Last Admin: 09/16/18 10:02 Dose: 1 tab Pantoprazole Sodium (Protonix Ec Tab) 40 mg PO 0600,1600 [facility] Last Admin: 09/16/18 05:20 Dose: 40 mg Trimethoprim/Sulfamethoxazole (Bactrim Ds Tab) 1 tab PO BID [facility]; Protocol Last Admin: 09/16/18 09:58 Dose: 1 tab - Labs Labs: 09/16/18 08:00 09/16/18 08:00 - Additional Findings Additional findings: - Constitutional Appears: Well, Toxic, No Acute Distress - Head Exam Head Exam: ATRAUMATIC, NORMAL INSPECTION, NORMOCEPHALIC - Eye Exam Eye Exam: EOMI, PERRL - Neck Exam Neck exam: Positive for: Full Rom - Respiratory Exam Additional comments: mild crackles of bilateral lower lobe bases - Cardiovascular Exam Cardiovascular Exam: REGULAR RHYTHM, RRR - GI/Abdominal Exam GI & Abdominal Exam: Normal Bowel Sounds, Soft. absent: Tenderness - Extremities Exam Extremities exam: Positive for: normal inspection - Neurological Exam Neurological exam: Alert, CN II-XII Intact, Oriented x3 - Psychiatric Exam Psychiatric exam: Normal Affect, Normal Mood - Skin Skin Exam: Dry, Intact, Normal Color Assessment and Plan - Assessment and Plan (Free Text) Assessment: Assessment: Sepsis 2/2 Pneumonia vs. Bronchitis / R/O underlying metastatic process vs Lymphoma - CXR 09/10: left lower lobe infiltrate - Chest CT 09/12: right lower lobe mass 1.4 x 1.7, lower lobe atelectasis without discrete/focal infiltrate, lower airway disease/bronchitis * IR consulted for possible biopsy; recommendations appreciated * Pulmonology consulted; Dr. Ontiveros; recommendations appreciated * Per patient, she had 27 pound weight loss in 6-8 week period * MRI with contrast of chest: 14mm nodule in the azygo esephageal recess of the right lower lobe. * Per Pulmonology: PET scan outpatient, possible EBUS. Patient would benefit from Pulmonology follow-up care at [facility]. - ABG 09/12: pH: 7.46, pO2: 57, pCO2: 31. Moderate hypoxia and hypocapnea - UA: moderate blood, negative LE and nitrate, 20-25 RBC, 0-2 WBC, 3-4 epithelial cells, moderate bacteria. Doubt UTI - Influenza negative - Blood culture: 09/10: negative - Pending Sputum culture - Procalcitonin: < 0.05 - Lactate unremarkable. LDH unremarkable at 457 - ABX: Bactrim PPx for PCP and Toxo Discontinued: vancomycin; due to SAUL - Per Dr. Perez, Treat for HCAP with Zosyn day 6 - Continue tylenol PRN for fever of more than 100.4 or for right sided rib pain - Patient no longer complains of rib pain but continues to complain of abdominal pain - Continue robitussin PRN, cepacol, and tessalon perles for cough. - If patient's O2 saturation desaturates again, will consider consulting Pulmonary. At this time, patient is in bed and comfortable. - ID, Dr. Perez, consulted for further recommendations - PT evaluate and treat; appreciated recommendations Chest Pain, ACS Rule-Out - Troponin negative x1 - Repeat Tropoinin pending - EKG: NSR, LVH, [id number] - Patient normotensive Epigastric pain pain likely 2/2 to fatigued abdominal muscles vs. GERD - Patient counseled regarding taking all anti-cough medications including robitussin, cepacol, and tessalon perles - Protonix 40 mg BID History of HIV - CD4 count 89 - Viral load high - Continue with home genoya - Continue Bactrim for PCP prophylaxis and Toxo prophylaxis SAUL on CKD - Reported creatinine of 5 two months ago - Last documented creatinine of 1.4 - Discontinued: NS Asthma - Continue duonebs Q6 JESSICA and Q2PRN Hypertension - Currently normotensive - Continue home amlodipine 10 mg daily Normocytic Anemia - Hgb stable - Will continue to monitor and evaluate. - Possibly secondary to anemia of chronic disease from infection vs iron deficiency anemia. GI prophylaxis: protonix 40 mg daily DVT prophylaxis: heparin 5000 U Q8 Dispo: Per Pulmonology: PET scan outpatient, possible EBUS. Patient would benefit from Pulmonology follow-up care at [facility] clinic. Patient seen and plan discussed with Dr. Wander Guo <Dima Viramontes - Last Filed: 09/18/18 15:19> Objective - Vital Signs/Intake and Output Vital Signs (last 24 hours): Temp Pulse Resp BP Pulse Ox 98 F 91 H 18 150/90 93 L 09/17/18 07:29 09/17/18 07:29 09/17/18 07:29 09/17/18 09:57 09/17/18 07:29 - Labs Labs: 09/16/18 08:00 09/16/18 08:00 Attending/Attestation - Attestation I have personally seen and examined this patient.: Yes I have fully participated in the care of the patient.: Yes I have reviewed all pertinent clinical information, including history, physical exam and plan: Yes Notes (Text): 09/18/18 15:18 Medical record note made by the resident after discussion with my direction and input after the patient was personally seen and examined by me. I have reviewed the chart and agree that the record accurately reflects by personal performance of the history, physical exam, data review, and medical decision-making, in the course for the patient. I have also personally directed the plan of care.
--- NOTE | 2018-09-16 15:43 | CP.PCM.PN ---
Subjective - Date & Time of Evaluation Date of Evaluation: 09/16/18 Time of Evaluation: 14:30 - Subjective Subjective: Infectious Disease Follow Up: September 16, 2018 58 yo AA female with past medical history of HIV, asthma, and hypertension with [place] [facility] [place] presents with symptoms of fever, night sweats, body aches, sore throat, shortness of breath, productive cough with green sputum, and chest pain on the right side while coughing. Patient states symptoms started 2 months ago when patient was evaluated at [facility]. On another visit to [facility] 2 weeks ago, she was given a medrol dose pack which she did not complete. Patient then came to [facility] about a week ago, and she was admitted for p ersistent cold-like symptoms including sore throat, cough, chills, and runny nose but Chest X ray showed no acute disease. For this hospitalization, Chest X ray shows mild left lower lobe infiltrate and right bibasilar atelectasis. Patient did not think she had fevers but she has had heavy sweating. Patient continues to have productive cough with green sputum. She states having multiple episodes of non-bloody non-bilious vomitus. She started having Right sided rib burrell 2 weeks ago. Patient reports taking her home medications of Genoya (HAART) for HIV, bactrim for PCP prophylaxis, albuterol for asthma, and amlodipine for hypertension. The patient follows at the [facility] from [facility]. Will check the prior CD4 and HIV viral load there. Last values I can find are a CD4 of 180 in December 2017 and HIV Viral Load < 20. [facility] states patient has been compliant with HAART but was not able to confirm whether it was Genvoya or Stribild. A repeat CD4 and HIV Viral load should be performed here. The patient has no leukocytosis. Cultures negative to date. ON Bactrim and Zosyn for antibiotic coverage. Fevers up to 102.6 F in the past 72 hours and 100.7 F in the past 48 hours. Afebrile the past 24 hours. The patient was started with IV Vancomycin as well today. There is a CT scan from [facility] of the Abd/Pel not the Chest. The CT visualized a small portion of the lower lobes of the lungs where a mass was not seen in what was visualized... unclear if the [facility] CT scan visualized the same affected area as the CT done here. Dr. Ramos is unable to biopsy the mass due to the position of the mass. MRI is showing 14mm nodule in the azygoesophageal recess of the right lower lobe that is highly suspicious of a neoplastic process. Patient likely needs PET and UBUS procedure. Objective - Vital Signs/Intake and Output Vital Signs (last 24 hours): Temp Pulse Resp BP Pulse Ox 98.2 F 80 20 126/81 92 L 09/16/18 14:00 09/16/18 14:00 09/16/18 14:00 09/16/18 14:00 09/16/18 14:00 Intake and Output: 09/16/18 09/16/18 06:59 18:59 Intake Total 620 480 Balance 620 480 - Medications Medications: Current Medications Acetaminophen (Tylenol 325mg Tab) 650 mg PO Q6H PRN PRN Reason: Fever >100.4 F Last Admin: 09/13/18 06:28 Dose: 650 mg Acetaminophen (Tylenol 325mg Tab) 650 mg PO Q6H PRN PRN Reason: Pain, moderate (4-7) Last Admin: 09/11/18 23:08 Dose: 650 mg Albuterol/Ipratropium (Duoneb 3 Mg/0.5 Mg (3 Ml) Ud) 3 ml IH [id number] [facility] Last Admin: 09/16/18 13:06 Dose: 3 ml Albuterol/Ipratropium (Duoneb 3 Mg/0.5 Mg (3 Ml) Ud) 3 ml IH Q2H PRN PRN Reason: Shortness of Breath Last Admin: 09/10/18 17:35 Dose: 3 ml Amlodipine Besylate (Norvasc) 10 mg PO DAILY [facility] Last Admin: 09/16/18 09:57 Dose: 10 mg Benzocaine/Menthol (Cepacol Sore Throat) 1 gutierrez MT Q2H PRN PRN Reason: Sore Throat Last Admin: 09/12/18 10:42 Dose: 1 gutierrez Benzonatate (Tessalon Perles) 100 mg PO TID [facility] Last Admin: 09/16/18 13:48 Dose: 100 mg Guaifenesin (Robitussin) 100 mg PO Q4H PRN PRN Reason: Cough Last Admin: 09/13/18 18:17 Dose: 100 mg Guaifenesin/Dextromethorphan (Mucinex-Dm 600-30 Mg) 1 tab PO BID [facility] Last Admin: 09/16/18 09:58 Dose: 1 tab Heparin Sodium (Porcine) (Heparin) 5,000 units SC Q8 [facility]; Protocol Last Admin: 09/16/18 13:53 Dose: Not Given Piperacillin Sod/Tazobactam Sod (Zosyn 3.375 In Ns 100ml) 100 mls @ 25 mls/hr IVPB Q8 [facility]; Protocol Last Admin: 09/16/18 13:49 Dose: 25 mls/hr Nicotine (Nicoderm Cq) 1 patch TD DAILY [facility] Last Admin: 09/16/18 09:57 Dose: 1 patch Genvoya [Elvitegrav/Cobicis/Emtricita/Tenofov] 1 Tab (Home Med) 1 tab PO DAILY [facility] Last Admin: 09/16/18 10:02 Dose: 1 tab Pantoprazole Sodium (Protonix Ec Tab) 40 mg PO 0600,1600 [facility] Last Admin: 09/16/18 05:20 Dose: 40 mg Trimethoprim/Sulfamethoxazole (Bactrim Ds Tab) 1 tab PO BID [facility]; Protocol Last Admin: 09/16/18 09:58 Dose: 1 tab - Labs Labs: 09/16/18 08:00 09/16/18 08:00 - Constitutional Appears: Non-toxic, No Acute Distress, Chronically Ill - Head Exam Head Exam: ATRAUMATIC, NORMOCEPHALIC - Eye Exam Eye Exam: EOMI, PERRL Pupil Exam: NORMAL ACCOMODATION, PERRL - ENT Exam ENT Exam: Mucous Membranes Moist, Normal External Ear Exam, TM's Normal Bilaterally - Neck Exam Neck Exam: Full ROM, Normal Inspection - Respiratory Exam Respiratory Exam: Decreased Breath Sounds. absent: Rales, Rhonchi Additional comments: bilateral bases of lungs but mostly improved. - Cardiovascular Exam Cardiovascular Exam: REGULAR RHYTHM, RRR, +S1, +S2 - GI/Abdominal Exam GI & Abdominal Exam: Soft, Normal Bowel Sounds. absent: Distended, Tenderness - Extremities Exam Extremities Exam: Full ROM, Normal Inspection - Neurological Exam Neurological Exam: Alert, Awake, CN II-XII Intact, Oriented x3 - Psychiatric Exam Psychiatric exam: Normal Affect, Normal Mood - Skin Skin Exam: Intact, Normal Color Assessment and Plan - Assessment and Plan (Free Text) Assessment: 58 yo AA female with HIV with unknown CD4 and HIV Viral load who is on Bactrim normally. The patient states that she takes her HAART. LLL pneumonia as per Chest X-ray. Fevers up to 102.3 F overnight. Recheck HIV Viral Load and CD4 count. Will see into past numbers at [facility] and [facility]... as of December 2017, HIV Viral load of <20 and CD4 of 180. Continue with IV antibiotics of Zosyn and Bactrim. With the persistent fevers, IV Vancomycin. CT scan here showing right lower lobe mass. Will see if there is a prior CT at [facility] and if there are prior findings. No direct comparison to a similar CT Chest available. A CT of the Abd/Pelvis visualizes a small portion of the lower lobes of the lung where no mass or structure was seen. Bactrim dosing increased from preventative dosing to treatment dosing. IV Vancomycin started for treatment. Supportive care. No leukocytosis. Fevers up to 100.7 F in the past 48 hours. Cultures negative to date. Reculture at next fever spike. Pulmonology evaluated the patient and suggested to start with MRI. Must rule out malignancy. Patient now states a 27 lbs weight loss within the past 2 months. Afebrile now. The patient is unable to have a CT guided biopsy as the position of the mass is in an extremely difficult position to even attempt to biopsy. MRI don and is showing 14mm nodule in the azygoesophageal recess of the right lower lobe that is highly suspicious of a neoplastic process. CD4 count of 89 and HIV Viral load just under 1000 (log 2.96). The mass has potential for malignancy given smoking history. Lymphoma especially B-cell lymphomas cannot be ruled out given low CD4 and having a HIV Viral load (if the patient has been compliant with HAART and HIV viral load has been low to undetectable, the risk for lymphoma should only be minimally raised versus the general population). Will have to let her care team at [facility] know these results including the MRI as biopsying the lesion will be difficult. The patient requires a PET scan and likely EBUS. Thank you for allowing me to participate in the care of the patient, we will follow with you.
[2018-09-17] MEDS: Albuterol-Ipratrop 3 mg / 0.5 (3 ml) UD IH SCH ×2 (03:43→08:28)
[2018-09-17] MEDS: Piperacillin/Tazobact 3.375 gm 100 ML IVPB SCH (05:23)
[2018-09-17 07:30] VITALS: PULSE 91; RESP 18; TEMP 98; O2SAT 93
[2018-09-17] MEDS: Tmp-Smz 800 mg-160 mg DS Tab PO SCH (09:49)
[2018-09-17] MEDS: Benzocaine/Menthol (Cepacol) Lozenge MT PRN (09:49)
[2018-09-17] MEDS: GENVOYA PO SCH (09:49)
[2018-09-17] MEDS: guaiFENesin-DM 600-30 mg ER Tab PO SCH (09:50)
[2018-09-17] MEDS: Pantoprazole 40 mg EC Tab PO SCH (09:51)
[2018-09-17 10:00] VITALS: BP 150/90
--- NOTE | 2018-09-17 15:01 | CP.PCM.DIS ---
<Ross Guo - Last Filed: 09/17/18 14:48> Provider - Provider Date of Admission: 09/10/18 12:24 Attending physician: Dima Viramontes MD Primary care physician: Dr. Santillan Consults: 09/10/18 13:31 Infectious Disease Consult Routine Comment: Consulting Provider: Wayne Perez Consulting Physician: Wayne Perez Reason for Consult: LLL infiltrate with HIV 09/10/18 22:09 Inpatient [employer] Core Measures Referral Routine Comment: PNEUMONIA Physician Instructions: Reason For Exam: EVALUATION Transition In Care/Readmission Reduction Routine Comment: Physician Instructions: Reason For Exam: EVALUATION 09/13/18 11:32 Physician Consult Routine Comment: Consulting Provider: Jaime Ramos Consulting Physician: Jaime Ramos Reason for Consult: Right Lower Lobe mass 1.7x1.4cm please evaluate for possible biopsy 09/13/18 12:52 Consult [Physician Consult] Routine Comment: Consulting Provider: Benito Ontiveros Consulting Physician: Benito Ontiveros Reason for Consult: pulm mass; hypoxia; hx of HIV/PNA Time Spent in preparation of Discharge (in minutes): 45 Diagnosis - Discharge Diagnosis (1) Right lower lobe lung mass Status: Acute Priority: Medium (2) Asthma Status: Acute Priority: Medium (3) PNA (pneumonia) Status: Acute Priority: Medium (4) Rib pain on right side Status: Acute Priority: Medium Hospital Course - Lab Results Lab Results: Micro Results 09/10/18 13:21 Blood-Venous Blood Culture - Final NO GROWTH AFTER 5 DAYS 09/10/18 13:21 Blood-Venous Gram Stain - Final TEST NOT PERFORMED 09/13/18 01:15 Sputum Gram Stain - Final 09/13/18 01:15 Sputum Sputum Culture - Final NORMAL ORAL HALLIE 09/10/18 11:50 Blood-Venous Blood Culture - Final NO GROWTH AFTER 5 DAYS 09/10/18 11:50 Blood-Venous Gram Stain - Final TEST NOT PERFORMED Most Recent Lab Values WBC 3.1 10^3/uL (4.5-11.0) L 09/16/18 08:00 RBC 3.47 10^6/uL (3.5-6.1) L 09/16/18 08:00 Hgb 10.9 g/dL (12.0-16.0) L 09/16/18 08:00 Hct 32.0 % (36.0-48.0) L 09/16/18 08:00 MCV 92.2 fl (80.0-105.0) 09/16/18 08:00 MCH 31.4 pg (25.0-35.0) 09/16/18 08:00 MCHC 34.1 g/dl (31.0-37.0) 09/16/18 08:00 RDW 13.7 % (11.5-14.5) 09/16/18 08:00 Plt Count 192 10^3/uL (120.0-450.0) 09/16/18 08:00 MPV 9.7 fl (7.0-11.0) 09/16/18 08:00 Neut % (Auto) 47.3 % (50.0-68.0) L 09/16/18 08:00 Lymph % (Auto) 42.3 % (22.0-35.0) H 09/16/18 08:00 Mcnairy % (Auto) 9.1 % (1.0-6.0) H 09/16/18 08:00 Eos % (Auto) 0.3 % (1.5-5.0) L 09/16/18 08:00 Baso % (Auto) 1.0 % (0.0-3.0) 09/16/18 08:00 Lymph # (Auto) 1.3 (1.2-3.4) 09/16/18 08:00 Mcnairy # (Auto) 0.3 (0.1-0.6) 09/16/18 08:00 Eos # (Auto) 0.0 (0.0-0.7) 09/16/18 08:00 Baso # (Auto) 0.03 K/mm3 (0.0-2.0) 09/16/18 08:00 Absolute Neuts (auto) 1.45 (1.4-6.5) 09/16/18 08:00 pCO2 31 mm/Hg (35-45) L 09/11/18 23:05 pO2 57.0 mm/Hg (80-100) L 09/11/18 23:05 HCO3 22.0 mmol/L (21-28) 09/11/18 23:05 ABG pH 7.46 (7.35-7.45) H 09/11/18 23:05 ABG Total CO2 23.0 mmol.L (22-28) 09/11/18 23:05 ABG O2 Saturation 93.9 % (95-98) L 09/11/18 23:05 ABG Base Excess -0.9 mmol/L (-2.0-3.0) 09/11/18 23:05 ABG Potassium 3.2 mmol/L (3.6-5.2) L 09/11/18 23:05 VBG pH 7.40 (7.32-7.43) 09/10/18 11:50 VBG pCO2 42.0 (40-60) 09/10/18 11:50 VBG HCO3 26.0 mmol/l (21-28) 09/10/18 11:50 VBG Total CO2 27.3 mmol.L (22-28) 09/10/18 11:50 VBG O2 Sat (Calc) 93.8 % (40-65) H 09/10/18 11:50 VBG Base Excess 1.0 mmol/L (0.0-2.0) 09/10/18 11:50 VBG Potassium 4.6 mmol/L (3.6-5.2) 09/10/18 11:50 Sodium 138.0 mmol/L (132-148) 09/11/18 23:05 Chloride 110.0 mmol/L (98-107) H 09/11/18 23:05 Glucose 101 mg/dl (65-105) 09/11/18 23:05 Lactate 0.7 mmol/L (0.7-2.1) 09/11/18 23:05 FiO2 40.0 % 09/11/18 23:05 Sodium 140 mmol/L (132-148) 09/16/18 08:00 Potassium 4.6 mmol/L (3.6-5.0) 09/16/18 08:00 Chloride 108 mmol/L (98-107) H 09/16/18 08:00 Carbon Dioxide 24 mmol/L (21-33) 09/16/18 08:00 Anion Gap 12 (10-20) 09/16/18 08:00 BUN 12 mg/dL (7-21) 09/16/18 08:00 Creatinine 1.4 mg/dl (0.7-1.2) H 09/16/18 08:00 Est GFR ( Amer) 47 09/16/18 08:00 Est GFR (Non-Af Amer) 39 09/16/18 08:00 Random Glucose 100 mg/dL (70-110) 09/16/18 08:00 Calcium 9.1 mg/dL (8.4-10.5) 09/16/18 08:00 Phosphorus 3.2 mg/dL (2.5-4.5) 09/16/18 08:00 Magnesium 2.1 mg/dL (1.7-2.2) 09/16/18 08:00 Total Bilirubin 0.4 mg/dL (0.2-1.3) 09/16/18 08:00 AST 52 U/L (14-36) H 09/16/18 08:00 ALT 8 U/L (7-56) 09/16/18 08:00 Alkaline Phosphatase 83 U/L (38-126) 09/16/18 08:00 Lactate Dehydrogenase 457 U/L (333-699) 09/10/18 11:50 Total Creatine Kinase 85 U/L (35-230) 09/10/18 11:50 Troponin I < 0.01 ng/mL 09/16/18 14:35 Total Protein 9.3 g/dL (5.8-8.3) H 09/16/18 08:00 Albumin 3.6 g/dL (3.0-4.8) 09/16/18 08:00 Globulin 5.7 gm/dL 09/16/18 08:00 Albumin/Globulin Ratio 0.6 (1.1-1.8) L 09/16/18 08:00 Procalcitonin < 0.05 NG/ML (0.19-0.49) L 09/10/18 14:58 Arterial Blood Potassium 3.2 mmol/L (3.6-5.2) L 09/11/18 23:05 Venous Blood Potassium 4.6 mmol/L (3.6-5.2) 09/10/18 11:50 Absolute Lymphs (Flow) 1032 Cells/mcL (850-3900) 09/12/18 06:40 % CD4 Cells 9 Percent (30-61) L 09/12/18 06:40 Absolute CD4 Count 89 Cells/mcL (490-1740) L 09/12/18 06:40 T-Help/Suppress Ratio 0.11 Ratio (0.86-5.00) L 09/12/18 06:40 % CD8 Cells 76 Percent (12-42) H 09/12/18 06:40 Absolute CD8 Count 786 Cells/mcL (180-1170) 09/12/18 06:40 HIV-1 RNA Qnt (RT-PCR) 2.96 (Not Detected) H 09/12/18 06:40 Influenza Typ A,B (EIA) Negative for flu a/b (NEGATIVE) 09/10/18 12:50 - Hospital Course Hospital Course: PGY1 Discharge Summary and Hospital Course for Dr. Viramontes On Admission: 58 year old female with past medical history of HIV, asthma, and hypertension with recent admission on 09/05 presents with symptoms of fever, night sweats, body aches, sore throat, shortness of breath, productive cough with green sputum, and chest pain on the right sided ribs while coughing. Patient's symptoms started 2 months ago when patient was evaluated at [facility]. She once again went to [facility] 2 weeks ago and was given a medrol dose pack which she did not complete. Patient was recently at [facility] where admitted to persistent cold-like symptoms which she describes as sore throat, cough, chills, and runny nose at which time Chest X ray showed no acute disease. Upon this admission, Chest X ray shows mild left lower lobe infiltrate and right bibasilar atelectasis. Patient reports 27 pound weight loss in last few weeks. Patient reports she has felt febrile at home but has not checked her temperature recently. She has been soaking her sheets at home. Patient has not smoked due to chronic sore throat. Patient's symptoms of productive cough with green sputum have been happening for 2 months. She has also had multiple episodes of nonbloody, non-bloody vomitus. Right sided rib burrell started within the last 2 weeks and that provoked her to follow up at the emergency department. For complete history, please see chart for details. Patient was subsequently admitted for sepsis secondary to suspected pneumonia in the setting of persistent bronchitis. Hospital Course: Chest X ray on 09/10 shows mild left lower lobe infiltrate and minimal right basilar atelectasis. Patient was treated with supportive care, empiric antibiotics; zosyn for coverage of HCAP. ID was consulted (Dr. Perez). Pulmonology (Dr. Ontiveros) was consulted. CT Scan shows right lower lobe nodule (not mass) 1.4 x 1.7 cm round well circumscribed. Per Dr. Ontiveros recommendations; During acute infection mediastinal LN can be enlarged however AIDS paitient's are at risk for lymphoma as well. Her smoking history also puts her at risk for cancer. Of note, CD4 count was obtained and was 89 and viral load is high. Patient continued on home genoya while hospitalized and was treated with bactrim prophylactically. Overall, we must rule out malignancy and there are several options. The most non-invasive approach would be to get an MRI with contrast to determine if the RLL mass is neurogenic or not. Thus, MRI with contrast was obtained and revealed 14mm nodule in the azygoesophageal recess of the right lower lobe that is highly suspicious of a neoplastic process. IR was consulted (Dr. Ramos) for possible CT guided biopsy, however Dr. Ramos is unable to biopsy the mass due to the position of the mass. Recommendation is to use EBUS approach to sample the mediastinum, which can be done as an out-patient. Patient was provided with a copy of her images in a CD for her to take to her provider. For complete summary, please see chart for detail. Day of Discharge: Patient had no acute events overnight. Patient without new complaints. Patient able to ambulate without assistance. Patient denied pain. Patient is medically optimized and clinically stable for discharge to home. Patient was discharged on prophylaxis antibiotics including Azithromycin and Bactrim as listed in ambulatory medications. Patient was provided with detailed discharge instructions provided both in writing and verbally to the level of Patient's comprehension. Patient both understands and agrees to all instructions. Please see chart for details. Discharge Instructions: 1. Please contact [facility] at [phone] to schedule an appointment for evaluation. You will need to have an evaluation for endobronchial ultrasound for the mass found on the chest CT. Please bring a copy of all your test results. 2. Follow up with your primary doctor as well as your infectious disease doctor within 1 week of discharge. 3. Continue to take your medications as prescribed as well as any new medications prescribed to you as directed. 4. Return to the emergency room should you have a worsening of your symptoms. Discharge Medications: - Continue home medications including HIV regimen - Ventolin 0.09mg IH QID #1 - Norvasc 10mg PO daily #14 - Azithromycin 1200mg PO QWK #5 - Bactrim DS 1 tab PO Q72H #15 Patient seen and case discussed in detail with Dr. Wander Guo Discharge Exam - Additional Findings Additional findings: - Constitutional Appears: Well, Toxic, No Acute Distress - Head Exam Head Exam: ATRAUMATIC, NORMAL INSPECTION, NORMOCEPHALIC - Eye Exam Eye Exam: EOMI, PERRL - Neck Exam Neck exam: Positive for: Full Rom - Respiratory Exam Additional comments: mild crackles of bilateral lower lobe base. absent: wheezing, respiratory distress, decreased breath sounds - Cardiovascular Exam Cardiovascular Exam: REGULAR RHYTHM, RRR - GI/Abdominal Exam GI & Abdominal Exam: Normal Bowel Sounds, Soft. absent: Tenderness - Extremities Exam Extremities exam: Positive for: normal inspection - Neurological Exam Neurological exam: Alert, CN II-XII Intact, Oriented x3 - Psychiatric Exam Psychiatric exam: Normal Affect, Normal Mood - Skin Skin Exam: Dry, Intact, Normal Color Discharge Plan - Discharge Medications Prescriptions: RX: Albuterol HFA [Ventolin HFA 90 mcg/actuation (8 g)] 0.09 mg IH QID #1 inhaler RX: Azithromycin 1,200 mg PO QWK #5 tablet Sulfamethoxazole/Trimethoprim [Bactrim DS 800 mg-160 mg] 1 tab PO Q72 #15 tab - Follow Up Plan Condition: GOOD Disposition: HOME/ ROUTINE Instructions: Asthma, Adult (DC), Pneumonia, Adult (DC) Additional Instructions: 1. Please contact [facility] at [phone] to schedule an appointment for evaluation. You will need to have an evaluation for endobronchial ultrasound for the mass found on the chest CT. Please bring a copy of all your test results. 2. Follow up with your primary doctor as well as your infectious disease doctor within 1 week of discharge. 3. Continue to take your medications as prescribed as well as any new medications prescribed to you as directed. 4. Return to the emergency room should you have a worsening of your symptoms. <Dima Viramontes - Last Filed: 09/18/18 15:18> Provider - Provider Date of Admission: 09/10/18 12:24 Attending physician: Dima Viramontes MD Consults: 09/10/18 13:31 Infectious Disease Consult Routine Comment: Consulting Provider: Wayne Perez Consulting Physician: Wayne Perez Reason for Consult: LLL infiltrate with HIV 09/10/18 22:09 Inpatient [employer] Core Measures Referral Routine Comment: PNEUMONIA Physician Instructions: Reason For Exam: EVALUATION Transition In Care/Readmission Reduction Routine Comment: Physician Instructions: Reason For Exam: EVALUATION 09/13/18 11:32 Physician Consult Routine Comment: Consulting Provider: Jaime Ramos Consulting Physician: Jaime Ramos Reason for Consult: Right Lower Lobe mass 1.7x1.4cm please evaluate for possible biopsy 09/13/18 12:52 Consult [Physician Consult] Routine Comment: Consulting Provider: Benito Ontiveros Consulting Physician: Benito Ontiveros Reason for Consult: pulm mass; hypoxia; hx of HIV/PNA Hospital Course - Lab Results Lab Results: Micro Results 09/10/18 13:21 Blood-Venous Blood Culture - Final NO GROWTH AFTER 5 DAYS 09/10/18 13:21 Blood-Venous Gram Stain - Final TEST NOT PERFORMED 09/13/18 01:15 Sputum Gram Stain - Final 09/13/18 01:15 Sputum Sputum Culture - Final NORMAL ORAL HALLIE 09/10/18 11:50 Blood-Venous Blood Culture - Final NO GROWTH AFTER 5 DAYS 09/10/18 11:50 Blood-Venous Gram Stain - Final TEST NOT PERFORMED Most Recent Lab Values WBC 3.1 10^3/uL (4.5-11.0) L 09/16/18 08:00 RBC 3.47 10^6/uL (3.5-6.1) L 09/16/18 08:00 Hgb 10.9 g/dL (12.0-16.0) L 09/16/18 08:00 Hct 32.0 % (36.0-48.0) L 09/16/18 08:00 MCV 92.2 fl (80.0-105.0) 09/16/18 08:00 MCH 31.4 pg (25.0-35.0) 09/16/18 08:00 MCHC 34.1 g/dl (31.0-37.0) 09/16/18 08:00 RDW 13.7 % (11.5-14.5) 09/16/18 08:00 Plt Count 192 10^3/uL (120.0-450.0) 09/16/18 08:00 MPV 9.7 fl (7.0-11.0) 09/16/18 08:00 Neut % (Auto) 47.3 % (50.0-68.0) L 09/16/18 08:00 Lymph % (Auto) 42.3 % (22.0-35.0) H 09/16/18 08:00 Mcnairy % (Auto) 9.1 % (1.0-6.0) H 09/16/18 08:00 Eos % (Auto) 0.3 % (1.5-5.0) L 09/16/18 08:00 Baso % (Auto) 1.0 % (0.0-3.0) 09/16/18 08:00 Lymph # (Auto) 1.3 (1.2-3.4) 09/16/18 08:00 Mcnairy # (Auto) 0.3 (0.1-0.6) 09/16/18 08:00 Eos # (Auto) 0.0 (0.0-0.7) 09/16/18 08:00 Baso # (Auto) 0.03 K/mm3 (0.0-2.0) 09/16/18 08:00 Absolute Neuts (auto) 1.45 (1.4-6.5) 09/16/18 08:00 pCO2 31 mm/Hg (35-45) L 09/11/18 23:05 pO2 57.0 mm/Hg (80-100) L 09/11/18 23:05 HCO3 22.0 mmol/L (21-28) 09/11/18 23:05 ABG pH 7.46 (7.35-7.45) H 09/11/18 23:05 ABG Total CO2 23.0 mmol.L (22-28) 09/11/18 23:05 ABG O2 Saturation 93.9 % (95-98) L 09/11/18 23:05 ABG Base Excess -0.9 mmol/L (-2.0-3.0) 09/11/18 23:05 ABG Potassium 3.2 mmol/L (3.6-5.2) L 09/11/18 23:05 VBG pH 7.40 (7.32-7.43) 09/10/18 11:50 VBG pCO2 42.0 (40-60) 09/10/18 11:50 VBG HCO3 26.0 mmol/l (21-28) 09/10/18 11:50 VBG Total CO2 27.3 mmol.L (22-28) 09/10/18 11:50 VBG O2 Sat (Calc) 93.8 % (40-65) H 09/10/18 11:50 VBG Base Excess 1.0 mmol/L (0.0-2.0) 09/10/18 11:50 VBG Potassium 4.6 mmol/L (3.6-5.2) 09/10/18 11:50 Sodium 138.0 mmol/L (132-148) 09/11/18 23:05 Chloride 110.0 mmol/L (98-107) H 09/11/18 23:05 Glucose 101 mg/dl (65-105) 09/11/18 23:05 Lactate 0.7 mmol/L (0.7-2.1) 09/11/18 23:05 FiO2 40.0 % 09/11/18 23:05 Sodium 140 mmol/L (132-148) 09/16/18 08:00 Potassium 4.6 mmol/L (3.6-5.0) 09/16/18 08:00 Chloride 108 mmol/L (98-107) H 09/16/18 08:00 Carbon Dioxide 24 mmol/L (21-33) 09/16/18 08:00 Anion Gap 12 (10-20) 09/16/18 08:00 BUN 12 mg/dL (7-21) 09/16/18 08:00 Creatinine 1.4 mg/dl (0.7-1.2) H 09/16/18 08:00 Est GFR ( Amer) 47 09/16/18 08:00 Est GFR (Non-Af Amer) 39 09/16/18 08:00 Random Glucose 100 mg/dL (70-110) 09/16/18 08:00 Calcium 9.1 mg/dL (8.4-10.5) 09/16/18 08:00 Phosphorus 3.2 mg/dL (2.5-4.5) 09/16/18 08:00 Magnesium 2.1 mg/dL (1.7-2.2) 09/16/18 08:00 Total Bilirubin 0.4 mg/dL (0.2-1.3) 09/16/18 08:00 AST 52 U/L (14-36) H 09/16/18 08:00 ALT 8 U/L (7-56) 09/16/18 08:00 Alkaline Phosphatase 83 U/L (38-126) 09/16/18 08:00 Lactate Dehydrogenase 457 U/L (333-699) 09/10/18 11:50 Total Creatine Kinase 85 U/L (35-230) 09/10/18 11:50 Troponin I < 0.01 ng/mL 09/16/18 14:35 Total Protein 9.3 g/dL (5.8-8.3) H 09/16/18 08:00 Albumin 3.6 g/dL (3.0-4.8) 09/16/18 08:00 Globulin 5.7 gm/dL 09/16/18 08:00 Albumin/Globulin Ratio 0.6 (1.1-1.8) L 09/16/18 08:00 Procalcitonin < 0.05 NG/ML (0.19-0.49) L 09/10/18 14:58 Arterial Blood Potassium 3.2 mmol/L (3.6-5.2) L 09/11/18 23:05 Venous Blood Potassium 4.6 mmol/L (3.6-5.2) 09/10/18 11:50 Absolute Lymphs (Flow) 1032 Cells/mcL (850-3900) 09/12/18 06:40 % CD4 Cells 9 Percent (30-61) L 09/12/18 06:40 Absolute CD4 Count 89 Cells/mcL (490-1740) L 09/12/18 06:40 T-Help/Suppress Ratio 0.11 Ratio (0.86-5.00) L 09/12/18 06:40 % CD8 Cells 76 Percent (12-42) H 09/12/18 06:40 Absolute CD8 Count 786 Cells/mcL (180-1170) 09/12/18 06:40 HIV-1 RNA Qnt (RT-PCR) 2.96 (Not Detected) H 09/12/18 06:40 Influenza Typ A,B (EIA) Negative for flu a/b (NEGATIVE) 09/10/18 12:50 Attending/Attestation - Attestation I have personally seen and examined this patient.: Yes I have fully participated in the care of the patient.: Yes I have reviewed all pertinent clinical information, including history, physical exam and plan: Yes Notes (Text): 09/18/18 15:17 Medical record note made by the resident after discussion with my direction and input after the patient was personally seen and examined by me. I have reviewed the chart and agree that the record accurately reflects by personal performance of the history, physical exam, data review, and medical decision-making, in the course for the patient. I have also personally directed the plan of care. 58 year old female with past medical history of HIV, asthma and hypertension who presented with cough, fever and shortness of breath.Chest xray showed left lower lobe infiltrate on CXR. She was treated with iv antibiotics. Cultures are negative to date. CT chest showed right lower lobe mass (1.4 x 1.7 cm). MRI with contrast was obtained and revealed 14mm nodule in the azygoesophageal recess of the right lower lobe that is highly suspicious of a neoplastic process. IR was consulted (Dr. Ramos) for possible CT guided biopsy, however Dr. Ramos is unable to biopsy the mass due to the position of the mass. Recommendation is to use EBUS approach to sample the mediastinum. Patient was provided with a copy of her images in a CD for her to take to [facility] at [phone] to schedule an appointment f or evaluation. Patient will be discharged home on oral levofloxacin and PJP and VIPUL Prophylaxis. Patient is ambulatory at the time of discharge. Management plan was discussed in detail with patient. Education was provided.
--- NOTE | 2018-09-17 17:06 | CP.PCM.PN ---
Subjective - Date & Time of Evaluation Date of Evaluation: 09/17/18 Time of Evaluation: 10:00 - Subjective Subjective: Infectious Disease Follow Up: September 17, 2018 58 yo AA female with past medical history of HIV, asthma, and hypertension with recent visit to [facility] on 09/05 presents with symptoms of fever, night sweats, body aches, sore throat, shortness of breath, productive cough with green sputum, and chest pain on the right side while coughing. Patient states symptoms started 2 months ago when patient was evaluated at [facility]. On another visit to [facility] 2 weeks ago, she was given a medrol dose pack which she did not complete. Patient then came to [facility] about a week ago, and she was admitted for p ersistent cold-like symptoms including sore throat, cough, chills, and runny nose but Chest X ray showed no acute disease. For this hospitalization, Chest X ray shows mild left lower lobe infiltrate and right bibasilar atelectasis. Patient did not think she had fevers but she has had heavy sweating. Patient continues to have productive cough with green sputum. She states having multiple episodes of non-bloody non-bilious vomitus. She started having Right sided rib burrell 2 weeks ago. Patient reports taking her home medications of Genoya (HAART) for HIV, bactrim for PCP prophylaxis, albuterol for asthma, and amlodipine for hypertension. The patient follows at the [facility] from [facility]. Will check the prior CD4 and HIV viral load there. Last values I can find are a CD4 of 180 in December 2017 and HIV Viral Load < 20. [facility] states patient has been compliant with HAART but was not able to confirm whether it was Genvoya or Stribild. A repeat CD4 and HIV Viral load should be performed here. The patient has no leukocytosis. Cultures negative to date. ON Bactrim and Zosyn for antibiotic coverage. Fevers up to 102.6 F in the past 72 hours and 100.7 F in the past 48 hours. Afebrile the past 24 hours. The patient was started with IV Vancomycin as well today. There is a CT scan from [facility] of the Abd/Pel not the Chest. The CT visualized a small portion of the lower lobes of the lungs where a mass was not seen in what was visualized... unclear if the [facility] CT scan visualized the same affected area as the CT done here. Dr. Ramos is unable to biopsy the mass due to the position of the mass. MRI is showing 14mm nodule in the azygoesophageal recess of the right lower lobe that is highly suspicious of a neoplastic process. Patient likely needs PET and UBUS procedure. Currently breathing better. No SOB. Objective - Vital Signs/Intake and Output Vital Signs (last 24 hours): Temp Pulse Resp BP Pulse Ox 98 F 91 H 18 150/90 93 L 09/17/18 07:29 09/17/18 07:29 09/17/18 07:29 09/17/18 09:57 09/17/18 07:29 Intake and Output: 09/17/18 09/17/18 06:59 18:59 Intake Total 520 Balance 520 - Labs Labs: 09/16/18 08:00 09/16/18 08:00 - Constitutional Appears: Non-toxic, No Acute Distress, Chronically Ill - Head Exam Head Exam: ATRAUMATIC, NORMOCEPHALIC - Eye Exam Eye Exam: EOMI, PERRL Pupil Exam: NORMAL ACCOMODATION, PERRL - ENT Exam ENT Exam: Mucous Membranes Moist, Normal External Ear Exam, TM's Normal Bilaterally - Neck Exam Neck Exam: Full ROM, Normal Inspection - Respiratory Exam Respiratory Exam: Decreased Breath Sounds, NORMAL BREATHING PATTERN. absent: Rales, Rhonchi, Wheezes - Cardiovascular Exam Cardiovascular Exam: REGULAR RHYTHM, RRR, +S1, +S2 - GI/Abdominal Exam GI & Abdominal Exam: Soft, Normal Bowel Sounds. absent: Distended, Tenderness - Extremities Exam Extremities Exam: Full ROM, Normal Inspection - Neurological Exam Neurological Exam: Alert, Awake, CN II-XII Intact, Oriented x3 - Psychiatric Exam Psychiatric exam: Normal Affect, Normal Mood - Skin Skin Exam: Intact, Normal Color Assessment and Plan - Assessment and Plan (Free Text) Assessment: 58 yo AA female with HIV with unknown CD4 and HIV Viral load who is on Bactrim normally. The patient states that she takes her HAART. LLL pneumonia as per Chest X-ray. Fevers up to 102.3 F overnight. Recheck HIV Viral Load and CD4 count. Will see into past numbers at [facility] and [facility]... as of December 2017, HIV Viral load of <20 and CD4 of 180. Continue with IV antibiotics of Zosyn and Bactrim. With the persistent fevers, IV Vancomycin. CT scan here showing right lower lobe mass. Will see if there is a prior CT at [facility] and if there are prior findings. No direct comparison to a similar CT Chest available. A CT of the Abd/Pelvis visualizes a small portion of the lower lobes of the lung where no mass or structure was seen. Bactrim dosing increased from preventative dosing to treatment dosing. IV Vancomycin started for treatment. Supportive care. No leukocytosis. Fevers up to 100.7 F in the past 48 hours. Cultures negative to date. Reculture at next fever spike. Pulmonology evaluated the patient and suggested to start with MRI. Must rule out malignancy. Patient now states a 27 lbs weight loss within the past 2 months. Afebrile now. The patient is unable to have a CT guided biopsy as the position of the mass is in an extremely difficult position to even attempt to biopsy. MRI don and is showing 14mm nodule in the azygoesophageal recess of the right lower lobe that is highly suspicious of a neoplastic process. CD4 count of 89 and HIV Viral load just under 1000 (log 2.96). The mass has potential for malignancy given smoking history. Lymphoma especial ly B-cell lymphomas cannot be ruled out given low CD4 and having a HIV Viral load (if the patient has been compliant with HAART and HIV viral load has been low to undetectable, the risk for lymphoma should only be minimally raised versus the general population). Will have to let her care team at [facility] know these results including the MRI as biopsying the lesion will be difficult. The patient requires a PET scan and likely EBUS. Overall, the patient's symptoms have improved. She should continue on Bactrim and Azithromycin prophylactically. Thank you for allowing me to participate in the care of the patient, we will follow with you.
== END 2018-09-17 12:24 | disposition home or self-care (01) | DRG 714 ==
LOC: ED 10:32 → ERH 12:24 → 5RNO 17:11
PROVIDERS: ADMIT Internal Medicine; ATTEND Internal Medicine
DX: A41.9 Sepsis, unspecified organism (principal); B20 Human immunodeficiency virus [HIV] disease; J18.1 Lobar pneumonia, unspecified organism; N17.9 Acute kidney failure, unspecified; N18.9 Chronic kidney disease, unspecified; J98.11 Atelectasis; R09.02 Hypoxemia; I12.9 Hypertensive chronic kidney disease with stage 1 through stage 4 chronic kidney disease, or unspecified chronic kidney disease; J45.20 Mild intermittent asthma, uncomplicated; J31.2 Chronic pharyngitis; F17.210 Nicotine dependence, cigarettes, uncomplicated; D63.8 Anemia in other chronic diseases classified elsewhere; D50.9 Iron deficiency anemia, unspecified; R10.13 Epigastric pain; K21.9 Gastro-esophageal reflux disease without esophagitis; Y95 Nosocomial condition